=== PATIENT | male | born 1980 | race Caucasian/White ===

== ENCOUNTER 2017-05-15 00:19 | Emergency (ER) | payer OTHER ==
[2017-05-15 00:35] VITALS: RESP 18; TEMP 99.4
[2017-05-15] MEDS ORDERED: DIPH,PERTUS(ACELL)TETVAC-LF 0.5 ML VIAL IM ONE (01:00)
[2017-05-15] MEDS ORDERED: GELATIN SPONGE,ABSORB (SMALL) 1 EACH SPONGE TOPICAL STA (01:23)
--- NOTE | 2017-05-15 01:38 | XR ---
EXAMINATION TYPE: XR tibia fibula bilateral DATE OF EXAM: 05/15/2017 COMPARISON: NONE HISTORY: Pain TECHNIQUE: 4 views FINDINGS: I see no fracture nor dislocation. Knee joint and ankle joint appear intact. Soft tissues a ppear normal. IMPRESSION: Negative bilateral tibia and fibula exam.
--- NOTE | 2017-05-15 01:40 | XR ---
EXAMINATION TYPE: XR hand complete RT DATE OF EXAM: 05/15/2017 COMPARISON: NONE HISTORY: Pain TECHNIQUE: 3 views FINDINGS: Metacarpals appear intact. I see no fracture nor dislocation. Joint spaces are normal. IMPRESSION: There is some soft tissue swelling and deformity around the end of the middle finger. No fracture seen.
[2017-05-15] MEDS ORDERED: ACET/COD 300 MG/30 MG STARTER PACK 6 TAB BTL PO STA (02:17)
--- NOTE | 2017-05-15 02:18 | ED ---
Wound/Laceration HPI - General Chief Complaint: Wound/Laceration Stated Complaint: IHS-finger lac, leg pain Time Seen by Provider: 05/15/17 00:39 Source: patient, RN notes reviewed, old records reviewed Mode of arrival: wheelchair Limitations: no limitations - History of Present Illness Initial Comments: 6-year-old male presents emergency Department chief complaint of right middle finger laceration, lacerations over the fourth and fifth digit, as well as bilateral leg pain. Patient reports that he was at work, working with a high low. 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 Patient reports he is trying to adjust it. He states that it fell off, his hand got caught, and a bounced onto his lower legs. He reports he has pain over bilateral shins. Denies any inability to walk. He reports he does have severe pain, and some abrasions over her ross. Patient reports that he has normal range of motion of his feet and ankles and toes. Denies any numbness or tingling in the toes, or cold sensation. Patient reports he said no previous fractures or injuries to the leg or hand. He is left-handed. Patient states that he could not get the bleeding to stop over his right middle finger. He does not know the last time he had tetanus shot. - Related Data Previous Rx's Medication Instructions Recorded traMADol HCl [Ultram] 50 mg PO Q6H PRN #10 tab 05/15/17 Allergies Allergy/AdvReac Type Severity Reaction Status Date / Time No Known Allergies Allergy Verified 05/15/17 00:35 Review of Systems ROS Statement: Those systems with pertinent positive or pertinent negative responses have been documented in the HPI. ROS Other: All systems not noted in ROS Statement are negative. Past Medical History Past Medical History: Hyperlipidemia Additional Past Medical History / Comment(s): hydrocephalis History of Any Multi-Drug Resistant Organisms: None Reported Additional Past Surgical History / Comment(s): vp talent management shunt Past Psychological History: Depression Smoking Status: Never smoker Past Alcohol Use History: None Reported Past Drug Use History: None Reported General Exam - General Exam Comments Initial Comments: 36-year-old male. No distress. Limitations: no limitations General appearance: alert, in no apparent distress Head exam: Present: atraumatic, normocephalic, normal inspection Eye exam: Present: normal appearance, PERRL, EOMI. Absent: scleral icterus, conjunctival injection, periorbital swelling ENT exam: Present: normal exam, mucous membranes moist Neck exam: Present: normal inspection. Absent: tenderness, meningismus, lymphadenopathy Respiratory exam: Present: normal lung sounds bilaterally. Absent: respiratory distress, wheezes, rales, rhonchi, stridor Cardiovascular Exam: Present: regular rate, normal rhythm, normal heart sounds. Absent: systolic murmur, diastolic murmur, rubs, gallop, clicks GI/Abdominal exam: Present: soft, normal bowel sounds. Absent: distended, tenderness, guarding, rebound, rigid Extremities exam: Present: normal inspection, full ROM, normal capillary refill , other (Bilateral shins have abrasions. Normal dorsalis pedis and posterior tibial pulse. Normal range of motion in the foot and ankle and toes. Both legs are warm to touch, no pallor or coldness.). Absent: tenderness, pedal edema, joint swelling, calf tenderness Right Elbow exam: Present: normal inspection, full ROM Forearm Wrist exam: Present: normal inspection, full ROM Hand Wrist exam: Present: full ROM, laceration (1 cm laceration over the distal third digit. Also 2 superficial abrasions over the fourth and fifth digits. Bleeding well controlled.). Absent: normal inspection (Patient has a laceration over the distal tip of the middle finger. Laceration measures proximally 1 cm. He did cut a small artery, is continue to leak blood.), tenderness, swelling, abrasion Hand L/R Front: 1 - laceration (1 cm laceration.) 2 - abrasion 3 - abrasion Neuro motor exam: Present: wrist extension intact, thumb opposition intact Back exam: Present: normal inspection Neurological exam: Present: alert, oriented X3, CN II-XII intact Psychiatric exam: Present: normal affect, normal mood Course Vital Signs 05/15/17 05/15/17 00:31 02:31 Temperature 99.4 F Pulse Rate 94 89 Respiratory 18 18 Rate Blood Pressure 171/95 170/86 O2 Sat by Pulse 97 100 Oximetry Procedures - Laceration Laceration #1 Site: hand (right middle finger) Size (cm): 1 Description: linear Depth: simple, single layer Anesthetic Used: lidocaine 1% Anesthesia Technique: nerve block Amount (mls): 3 Pre-repair: wound explored, irrigated extensively Type of Sutures: nylon Size of Sutures: 6-0 Number of Sutures: 5 Technique: simple, interrupted Patient Tolerated Procedure: well, no complications Medical Decision Making - Medical Decision Making 36-year-old male presents emergency Department with right middle finger laceration, bilateral lower leg pain. 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 Patient does not know the last time he had his tetanus. He was updated today. Laceration measures approximately 1 cm. There appear to be a small artery that was cut. Patient has full range of motion of all finger. Normal sensation distally. Wound was irrigated with normal saline. Wound was closed with 5 sutures, and Gelfoam applied. The bleeding is well-controlled at this time. Bilateral tib-fib x-ray show no evidence of any fracture. He has normal range of motion and ankles. No pulselessness. Patient will likely has a contusion over bilateral shins due to the heavy material landing there. Patient will be discharged at this time with suture care instructions, as well as a short course of pain medication for his leg pain and hand pain. Hand x-ray shows no fractures well. Patient will be discharged at this time with close follow-up with PCP. Patient nurse's treatment plan will comply. Return parameters were discussed. - Radiology Data Radiology results: report reviewed Bilateral tib-fib x-rays show no evidence of any fracture. Hand x-ray shows evidence of soft tissue swelling over the middle digit. No evidence of fracture. Disposition Clinical Impression: Laceration of right middle finger, Bilateral leg pain Disposition: HOME SELF-CARE Condition: Good Instructions: Contusion in Adults (ED), Finger Laceration (ED) Additional Instructions: Please return to the emergency room in 8-10 days to have sutures removed. Please leave wound covered for the first 24-48 hours and then leave open to air after that time. Please use clean soap and water to clean the suture area to prevent scabbing over the top of your sutures. Patient should keep the laceration covered if you're doing any work with her hands. Please watch for any signs of infection which may include but not limited to increased pain, swelling, redness, fever or chills. Please return to the emergency room if any signs of infection do occur. Please return to the emergency room for any other concerns or complications. Prescriptions: traMADol HCl [Ultram] 50 mg PO Q6H PRN #10 tab PRN Reason: Pain Referrals: Abdon Montes De Oca DO [Primary Care Provider] - 1-2 days Time of Disposition: 02:17
[2017-05-15 02:32] VITALS: BP 170/86; PULSE 89
== END 2017-05-15 02:34 | disposition home or self-care (01) ==
LOC: EC 00:19
DX: S61.212A Laceration without foreign body of right middle finger without damage to nail, initial encounter (principal); Z23 Encounter for immunization; W20.8XXA Other cause of strike by thrown, projected or falling object, initial encounter; Y99.0 Civilian activity done for income or pay
CPT/HCPCS: 12001; 90471; 90715; 99283

== ENCOUNTER 2019-02-06 19:14 | Emergency (ER) | payer OTHER ==
[2019-02-06 19:20] VITALS: BP 157/96; PULSE 87; RESP 20; TEMP 99.2
[2019-02-06] MEDS ORDERED: MORPHINE SULFATE 4 MG/ML SYRINGE IVP STA (19:32)
--- NOTE | 2019-02-06 19:36 | ED ---
General Adult HPI - General Chief complaint: Urogenital Stated complaint: Urogenital Time Seen by Provider: 02/06/19 19:27 Source: patient, family Mode of arrival: ambulatory Limitations: no limitations - History of Present Illness Initial comments: Dictation was produced using [employer] dictation software. please excuse any grammatical, word or spelling errors. Chief Complaint: 38-year-old male sent in from urgent care for testicular pain. History of Present Illness: [age]-year-old male he's had 3 days of testicular pain. Patient states his pain is absent at rest and worse especially with manipulation around the right testicle. Patient had this pain for approximately 3 days. He states the pain began spontaneously. He complains of point tenderness over the superior posterior portion of the right testicle. Patient has any pain while at rest. He went to the urgent care today and was sent immediately to the emergency department for concerns of testicular torsion. Patient had a vasectomy performed in November of this year. He explains that there was difficulty with doing a vasectomy procedure. The ROS documented in this emergency department record has been reviewed and confirmed by me. Those systems with pertinent positive or negative responses have been documented in the HPI. All other systems are other negative and/or noncontributory. PHYSICAL EXAM: General Impression: Alert and oriented x3, not in acute distress HEENT: Normocephalic atraumatic, extra-ocular movements intact, pupils equal and reactive to light bilaterally, mucous membranes moist. Cardiovascular: Heart regular rate and rhythm, S1&S2 audible, no murmurs, rubs or gallops Chest: Lungs clear to auscultation bilaterally, no rhonchi, no wheeze, no rales Abdomen: Bowel sounds present, abdomen soft, non-tender, non-distended, no organ omegaly Musculoskeletal: Pulses present and equal in all extremities, no peripheral edema Motor: no focal deficits noted Neurological: CN II-XII grossly intact, no focal motor or sensory deficits noted Skin: Intact with no visualized rashes Psych: Normal affect and mood : Scrotal exam is unremarkable. There is tenderness to palpation in the groin/superior testicular area. ED course: 38-year-old male presents with testicular versus right groin pain. On arrival are unremarkable.Lab return evaluation obtained. Mild leukocytosis of 11.4, metabolic panel is unremarkable. Urinalysis is negative. Scrotal ultrasound was obtained showing magical blood flow to both testicles. There is a finding of a right epididymal cyst that measures 2.[address] of the abdomen and pelvis was obtained to rule out inguinal hernia. CT abdomen and pelvis is negative. Patient is well-appearing at bedside. Clinical presentation is not consistent with testicular torsion given that his pain is only with palpation and certain area. He is well-appearing. Patient told to follow-up with his urologist upon discharge. Patient understandable agreeable to plan. Return parameters discussed. - Related Data Home Medications Medication Instructions Recorded Confirmed No Known Home Medications 02/06/19 02/06/19 Allergies Allergy/AdvReac Type Severity Reaction Status Date / Time No Known Allergies Allergy Verified 02/06/19 19:37 Review of Systems ROS Statement: Those systems with pertinent positive or pertinent negative responses have been documented in the HPI. ROS Other: All systems not noted in ROS Statement are negative. Past Medical History Past Medical History: Hyperlipidemia Additional Past Medical History / Comment(s): hydrocephalis History of Any Multi-Drug Resistant Organisms: None Reported Additional Past Surgical History / Comment(s): evp shunt, vasectomy November 2018 Past Psychological History: Depression Smoking Status: Never smoker Past Alcohol Use History: None Reported Past Drug Use History: None Reported General Exam Limitations: no limitations Course Vital Signs 02/06/19 19:16 Temperature 99.2 F Pulse Rate 87 Respiratory 20 Rate Blood Pressure 157/96 O2 Sat by Pulse 97 Oximetry Medical Decision Making - Lab Data Result diagrams: 02/06/19 19:40 02/06/19 19:40 Lab Results 02/06/19 02/06/19 02/06/19 Range/Units 19:40 19:40 19:40 WBC 11.4 H (3.8-10.6) k/uL RBC 5.77 (4.30-5.90) m/uL Hgb 15.9 (13.0-17.5) gm/dL Hct 48.1 (39.0-53.0) % MCV 83.3 (80.0-100.0) fL MCH 27.6 (25.0-35.0) pg MCHC 33.1 (31.0-37.0) g/dL RDW 15.4 (11.5-15.5) % Plt Count 305 (150-450) k/uL Neutrophils % 68 % Lymphocytes % 20 % Monocytes % 6 % Eosinophils % 4 % Basophils % 1 % Neutrophils # 7.8 H (1.3-7.7) k/uL Lymphocytes # 2.2 (1.0-4.8) k/uL Monocytes # 0.6 (0-1.0) k/uL Eosinophils # 0.5 (0-0.7) k/uL Basophils # 0.1 (0-0.2) k/uL Sodium 139 (137-145) mmol/L Potassium 4.4 (3.5-5.1) mmol/L Chloride 106 (98-107) mmol/L Carbon Dioxide 23 (22-30) mmol/L Anion Gap 10 mmol/L BUN 17 (9-20) mg/dL Creatinine 1.16 (0.66-1.25) mg/dL Est GFR (CKD-EPI)AfAm >90 (>60 ml/min/1.73 sqM) Est GFR (CKD-EPI)NonAf 80 (>60 ml/min/1.73 sqM) Glucose 113 H (74-99) mg/dL Calcium 9.4 (8.4-10.2) mg/dL Urine Color Yellow Urine Appearance Clear (Clear) Urine pH 5.5 (5.0-8.0) Ur Specific [place] 1.023 (1.001-1.035) Urine Protein Trace H (Negative) Urine Glucose (UA) Negative (Negative) Urine Ketones Negative (Negative) Urine Blood Negative (Negative) Urine Nitrite Negative (Negative) Urine Bilirubin Negative (Negative) Urine Urobilinogen <2.0 (<2.0) mg/dL Ur Leukocyte Esterase Negative (Negative) Disposition Clinical Impression: Scrotal pain Disposition: HOME SELF-CARE Condition: Good Instructions (If sedation given, give patient instructions): Scrotal Pain (ED) Additional Instructions: you have a 2.3 cm epididymal cyst on the right testicle Is patient prescribed a controlled substance at d/c from ED?: No Referrals: Joey Braga MD [STAFF PHYSICIAN] - 1-2 days Time of Disposition: 22:08
[2019-02-06 19:54] LABS: Appearance,Urine Clear (Clear); Basophils # (A) 0.1 k/uL (0-0.2); Basophils % (A) 1 %; Bilirubin,Urine Negative (Negative); Blood,Urine Negative (Negative); Color,Urine Yellow; Eosinophils # (A) 0.5 k/uL (0-0.7); Eosinophils % (A) 4 %; Glucose,Urine (UA) Negative (Negative); HCT 48.1 % (39.0-53.0); HGB 15.9 gm/dL (13.0-17.5); Ketones,Urine Negative (Negative); Leukocyte Esterase,Urine Negative (Negative); Lymphocytes # (A) 2.2 k/uL (1.0-4.8); Lymphocytes % (A) 20 %; MCH 27.6 pg (25.0-35.0); MCHC 33.1 g/dL (31.0-37.0); MCV 83.3 fL (80.0-100.0); Mean Platelet Volume 7.7; Monocytes # (A) 0.6 k/uL (0-1.0); Monocytes % (A) 6 %; Neutrophils # (A) 7.8 k/uL (1.3-7.7); Neutrophils % (A) 68 %; Nitrite,Urine Negative (Negative); PH, Urine 5.5 (5.0-8.0); Platelet Count 305 k/uL (150-450); Protein,Urine Trace (Negative); RBC 5.77 m/uL (4.30-5.90); RDW 15.4 % (11.5-15.5); Specific Gravity,Urine 1.023 (1.001-1.035); Urobilinogen,Urine <2.0 mg/dL (<2.0); WBC 11.4 k/uL (3.8-10.6)
[2019-02-06 20:05] LABS: African American GFR (CKD) >90 (>60 ml/min/1.73 sqM); Anion Gap 10 mmol/L; Blood Urea Nitrogen 17 mg/dL (9-20); Calcium 9.4 mg/dL (8.4-10.2); Carbon Dioxide 23 mmol/L (22-30); Chloride 106 mmol/L (98-107); Glucose 113 mg/dL (74-99); Potassium 4.4 mmol/L (3.5-5.1); Sodium 139 mmol/L (137-145)
--- NOTE | 2019-02-06 21:07 | US ---
EXAMINATION TYPE: US scrotum with doppler. Grayscale and color Doppler Duplex imaging performed of t he scrotum. DATE OF EXAM: 02/06/2019 COMPARISON: NONE CLINICAL HISTORY: Pain. Patient states having vasectomy in November 2018. Pain x 3 days getting worse. N o swelling. EXAM MEASUREMENTS: TESTICLES: Right Testicle: 4.3 x 3.9 x 2.2 cm Left Testicle: 4.2 x 3.4 x 2.7 cm EPIDIDYMIS HEAD: Right Epididymis: 1.7 x 2.3 x 1.0 cm Left Epididymis: 0.8 x 0.7 x 0.6 cm Doppler performed to assess for testicular vascularity; good bilateral color flow and waveforms are s een. Presence of hydroceles: no Presence of varicoceles: no Right epididymal cystic appearing lesion visualized = 1.5 x 2.4 x 1.3 cm. Right epididymis appears en larged and echogenic. In bilateral testes, bilateral nonshadowing echogenic foci seen. In left inguinal region, possible hernia visualized. Some scattered calcifications throughout both testicles consistent with microlithiasis. Estimated 10- 20 lesions throughout both testicles. Towards the end of study comparison view shows fairly symmetric blood flow to both testicles. IMPRESSION: Symmetric blood flow to both testicles. Incidental enlarged right epididymis with 2.3 cm thin-walled epididymal cyst.
--- NOTE | 2019-02-06 21:59 | CT ---
EXAMINATION TYPE: CT abdomen pelvis w con DATE OF EXAM: 02/06/2019 COMPARISON: None. HISTORY: groin and testicular pain. History of recent vasectomy November 23, 2018 CT DLP: 1676.2 mGycm, Automated Exposure Control for Dose Reduction was Utilized. CONTRAST: CT scan of the abdomen and pelvis is performed without oral but with IV Contrast, patient injected wi th 100 mL of Isovue 300. FINDINGS: LUNG BASES: No significant abnormality is appreciated. LIVER/GB: No significant abnormality is appreciated. PANCREAS: No significant abnormality is seen. SPLEEN: No significant abnormality is seen. ADRENALS: No significant abnormality is seen. KIDNEYS: Asymmetric right renal volume loss with cortical thinning and lobulation. Symmetric cortical medullary uptake and excretion is present without hydronephrosis seen bilaterally. BOWEL: No significant abnormality is seen. PROSTATE/SEMINAL VESICLES: Prostate gland upper limits of normal in size. On the left. Slightly bulky . LYMPH NODES: No greater than 1cm abdominal or pelvic lymph nodes are appreciated. OSSEOUS STRUCTURES: No significant abnormality is seen. OTHER: Partial visualization of right-sided presumed OCEAN LIFEGUARD shunt catheter terminating anteriorly in the right lower quadrant. IMPRESSION: No significant acute finding is seen to account for patient's clinical symptoms.
== END 2019-02-06 22:24 | disposition home or self-care (01) ==
LOC: EC 19:14
DX: N50.82 Scrotal pain (principal); N50.811 Right testicular pain; D72.829 Elevated white blood cell count, unspecified; G91.9 Hydrocephalus, unspecified; Z98.2 Presence of cerebrospinal fluid drainage device
CPT/HCPCS: 36415; 80048; 85025; 81003; 93975; 76870; 74177; 99284; 96374; J2270; Q9967

== ENCOUNTER 2020-04-26 07:18 | Emergency (ER) | payer OTHER ==
[2020-04-26] MEDS ORDERED: SODIUM CHLORIDE 0.9% 1,000 ML IV STA (07:34)
--- NOTE | 2020-04-26 07:43 | ED ---
Abdominal Pain HPI - General Chief Complaint: Abdominal Pain Stated Complaint: Abdominal Pain Time Seen by Provider: 04/26/20 07:21 Source: patient, EMS, RN notes reviewed Mode of arrival: EMS Limitations: no limitations - History of Present Illness Initial Comments: 39-year-old male presents emergency Department chief complaint of abdominal discomfort, nausea vomiting diarrhea. Patient states he does not feel well is morning states that he started vomiting having diarrhea. Patient states he very diaphoretic states that he felt short breath. Patient states that he attempted to leave work as he is instructed go home. Patient states that he felt worse was unable to drive home continuously called family. Family called EMS. Patient states she's actually improving at this time is no point chest pain or shortness of breath. Patient states that he has no history of GI disorder. Patient denies any fevers chills. Patient denies any dysuria no melena hematochezia. Patient offers no other complaints. - Related Data Home Medications Medication Instructions Recorded Confirmed Atorvastatin Calcium [Lipitor] 20 mg PO DAILY 04/26/20 04/26/20 Vit C/E/Zn/Coppr/Lutein/Zeaxan 1 cap PO BID 04/26/20 04/26/20 [Preservision Areds 2 Softgel] Previous Rx's Medication Instructions Recorded Dicyclomine [Bentyl] 20 mg PO TID #30 tablet 04/26/20 Ondansetron Odt [Zofran Odt] 4 mg PO Q8HR PRN #10 tab 04/26/20 Allergies Allergy/AdvReac Type Severity Reaction Status Date / Time No Known Allergies Allergy Verified 04/26/20 08:15 Review of Systems ROS Statement: Those systems with pertinent positive or pertinent negative responses have been documented in the HPI. ROS Other: All systems not noted in ROS Statement are negative. Past Medical History Past Medical History: Hyperlipidemia Additional Past Medical History / Comment(s): hydrocephalis History of Any Multi-Drug Resistant Organisms: None Reported Additional Past Surgical History / Comment(s): [employer] shunt, vasectomy November 2018 Past Psychological History: Depression Smoking Status: Never smoker Past Alcohol Use History: None Reported Past Drug Use History: None Reported General Exam Limitations: no limitations General appearance: alert, in no apparent distress Head exam: Present: atraumatic, normocephalic, normal inspection Eye exam: Present: normal appearance, PERRL, EOMI. Absent: scleral icterus, conjunctival injection, periorbital swelling ENT exam: Present: normal exam, normal oropharynx, mucous membranes moist Neck exam: Present: normal inspection, full ROM. Absent: tenderness, meningismus, lymphadenopathy Respiratory exam: Present: normal lung sounds bilaterally. Absent: respiratory distress, wheezes, rales, rhonchi, stridor Cardiovascular Exam: Present: regular rate, normal rhythm, normal heart sounds. Absent: systolic murmur, diastolic murmur, rubs, gallop, clicks GI/Abdominal exam: Present: soft, tenderness (Mild lower), normal bowel sounds. Absent: distended, guarding, rebound, rigid Back exam: Absent: CVA tenderness (R), CVA tenderness (L) Neurological exam: Present: alert, oriented X3 Skin exam: Present: warm, dry, intact, normal color. Absent: rash Course Vital Signs 04/26/20 04/26/20 07:24 08:54 Temperature 98.0 F 98.0 F Pulse Rate 85 84 Respiratory 16 14 Rate Blood Pressure 133/84 143/88 O2 Sat by Pulse 98 98 Oximetry Medical Decision Making - Medical Decision Making 39-year-old male presented for nausea vomiting. Patient has gastroenteritis labs reveal mild acidosis sole no localized abdominal pain. Patient was hydrated given antiemetics feels improved. Patient we discharged in stable condition. - Lab Data Result diagrams: 04/26/20 07:31 04/26/20 07:31 Lab Results 04/26/20 04/26/20 04/26/20 Range/Units 07:31 07:31 07:31 WBC 17.9 H (3.8-10.6) k/uL RBC 5.84 (4.30-5.90) m/uL Hgb 16.3 (13.0-17.5) gm/dL Hct 50.0 (39.0-53.0) % MCV 85.6 (80.0-100.0) fL MCH 28.0 (25.0-35.0) pg MCHC 32.7 (31.0-37.0) g/dL RDW 13.3 (11.5-15.5) % Plt Count 349 (150-450) k/uL Neutrophils % 88 % Lymphocytes % 6 % Monocytes % 4 % Eosinophils % 1 % Basophils % 0 % Neutrophils # 15.8 H (1.3-7.7) k/uL Lymphocytes # 1.1 (1.0-4.8) k/uL Monocytes # 0.8 (0-1.0) k/uL Eosinophils # 0.1 (0-0.7) k/uL Basophils # 0.1 (0-0.2) k/uL Sodium 140 (137-145) mmol/L Potassium 4.4 (3.5-5.1) mmol/L Chloride 106 (98-107) mmol/L Carbon Dioxide 26 (22-30) mmol/L Anion Gap 8 mmol/L BUN 16 (9-20) mg/dL Creatinine 1.00 (0.66-1.25) mg/dL Est GFR (CKD-EPI)AfAm >90 (>60 ml/min/1.73 sqM) Est GFR (CKD-EPI)NonAf >90 (>60 ml/min/1.73 sqM) Glucose 77 (74-99) mg/dL Calcium 9.1 (8.4-10.2) mg/dL Total Bilirubin 0.7 (0.2-1.3) mg/dL AST 23 (17-59) U/L ALT 23 (4-49) U/L Alkaline Phosphatase 97 (38-126) U/L Total Protein 7.0 (6.3-8.2) g/dL Albumin 3.9 (3.5-5.0) g/dL Lipase 88 (23-300) U/L Urine Color Light Yellow Urine Appearance Clear (Clear) Urine pH 7.0 (5.0-8.0) Ur Specific [place] 1.014 (1.001-1.035) Urine Protein 3+ H (Negative) Urine Glucose (UA) Negative (Negative) Urine Ketones 1+ H (Negative) Urine Blood Negative (Negative) Urine Nitrite Negative (Negative) Urine Bilirubin Negative (Negative) Urine Urobilinogen <2.0 (<2.0) mg/dL Ur Leukocyte Esterase Negative (Negative) Urine WBC 1 (0-5) /hpf Urine Mucus Rare H (None) /hpf - EKG Data -: EKG Interpreted by Me EKG Comments: EKG fullness 7:37 normal sinus rhythm rate of 77 OR 176 QRS 82 QTC is QTC 372/420 Disposition Clinical Impression: Gastroenteritis Disposition: HOME SELF-CARE Condition: Stable Instructions (If sedation given, give patient instructions): Gastroenteritis (ED) Additional Instructions: Please return to the Emergency Department if symptoms worsen or any other concerns. Prescriptions: Dicyclomine [Bentyl] 20 mg PO TID #30 tablet Ondansetron Odt [Zofran Odt] 4 mg PO Q8HR PRN #10 tab PRN Reason: Nausea Is patient prescribed a controlled substance at d/c from ED?: No Referrals: Abdon Montes De Oca DO [Primary Care Provider] - 1-2 days Time of Disposition: 09:12
[2020-04-26 08:31] LABS: Basophils # (A) 0.1 k/uL (0-0.2); Basophils % (A) 0 %; Eosinophils # (A) 0.1 k/uL (0-0.7); Eosinophils % (A) 1 %; HGB 16.3 gm/dL (13.0-17.5); Lymphocytes # (A) 1.1 k/uL (1.0-4.8); Lymphocytes % (A) 6 %; MCHC 32.7 g/dL (31.0-37.0); MCV 85.6 fL (80.0-100.0); Mean Platelet Volume 8.1; Monocytes # (A) 0.8 k/uL (0-1.0); Monocytes % (A) 4 %; Neutrophils # (A) 15.8 k/uL (1.3-7.7); Neutrophils % (A) 88 %; Platelet Count 349 k/uL (150-450); RBC 5.84 m/uL (4.30-5.90); RDW 13.3 % (11.5-15.5); WBC 17.9 k/uL (3.8-10.6)
[2020-04-26 08:36] LABS: Appearance,Urine Clear (Clear); Bilirubin,Urine Negative (Negative); Blood,Urine Negative (Negative); Color,Urine Light Yellow; Glucose,Urine (UA) Negative (Negative); Ketones,Urine 1+ (Negative); Leukocyte Esterase,Urine Negative (Negative); Mucus,Urine Rare /hpf; Nitrite,Urine Negative (Negative); Protein,Urine 3+ (Negative); Specific Gravity,Urine 1.014 (1.001-1.035); Urobilinogen,Urine <2.0 mg/dL (<2.0); WBC,Urine 1 /hpf (0-5)
[2020-04-26] MEDS ORDERED: ONDANSETRON 4 MG/2 ML VIAL IVP STA (08:43)
[2020-04-26] MEDS ORDERED: DICYCLOMINE 10 MG/ML 2 ML AMP IM STA (08:43)
[2020-04-26 08:44] LABS: ALT 23 U/L (4-49); AST 23 U/L (17-59); African American GFR (CKD) >90 (>60 ml/min/1.73 sqM); Albumin 3.9 g/dL (3.5-5.0); Alkaline Phosphatase 97 U/L (38-126); Anion Gap 8 mmol/L; Blood Urea Nitrogen 16 mg/dL (9-20); Calcium 9.1 mg/dL (8.4-10.2); Carbon Dioxide 26 mmol/L (22-30); Chloride 106 mmol/L (98-107); Glucose 77 mg/dL (74-99); Non-African American GFR(CKD) >90 (>60 ml/min/1.73 sqM); Potassium 4.4 mmol/L (3.5-5.1); Sodium 140 mmol/L (137-145); Total Bilirubin 0.7 mg/dL (0.2-1.3)
[2020-04-26 09:36] VITALS: BP 143/84; PULSE 77; RESP 16; TEMP 98.1
== END 2020-04-26 09:36 | disposition home or self-care (01) ==
LOC: EC 07:18
DX: K52.9 Noninfective gastroenteritis and colitis, unspecified (principal); E87.2 Acidosis; E78.5 Hyperlipidemia, unspecified; Z79.899 Other long term (current) drug therapy; Z98.2 Presence of cerebrospinal fluid drainage device
CPT/HCPCS: 36415; 93005; 80053; 83690; 85025; 81001; 99284; 96374; 96361; 96372; J0500; J2405

== ENCOUNTER → 2021-08-30 | Outpatient (CLI) | payer OTHER ==
--- NOTE | 2021-08-31 01:45 | CT ---
EXAMINATION TYPE: CT brain wo con DATE OF EXAM: 08/30/2021 COMPARISON: None available HISTORY: headaches, hx of [address] DLP: 1090.4 mGycm Automated exposure control for dose reduction was used. TECHNIQUE: CT scan of the brain is performed without IV contrast administration. FINDINGS: Right anterior parietal shunt tube likely representing a RESERVATIONS SPECIALIST shunt. The tip is seen traversing the ant erior horn of the right lateral ventricle and possibly reaching the anterior horn of the left lateral ventricle. Slitlike lateral ventricles as well as the third ventricle with slightly small fourth sahara tricle. No intracranial hemorrhage or gross acute cortical infarct. No midline shift or herniation unremarkab le basal cisterns, sella and CP angles. No gross space-occupying lesion, vasogenic edema or mass effe ct. Slightly hyperdense intracranial vessels, possibly related to the hemodynamic status of the patient. Unremarkable orbits. Large maxillary sinus polyp/retention cyst measuring up to 2.7 cm. Opacified rig ht mastoid cells and middle ear cavity which may suggest right otomastoiditis, please correlate clini anselmo. No aggressive bone lesion. IMPRESSION: Ventriculostomy tube as described above likely representing a RESERVATIONS SPECIALIST shunt. Slitlike ventricles which can be seen in cases of chronic overdrainage. Recommend correlation with previous unavailable images as well as clinical correlation to rule out slit-ventricle syndrome. Other incidental findings as descri bed above.
--- NOTE | 2021-08-31 10:26 | XR ---
EXAMINATION TYPE: XR chest 1V, XR abdomen 1V, XR skull limited DATE OF EXAM: 08/30/2021 COMPARISON: CT brain 08/30/2021 HISTORY: Q03.9, R 51.9 TECHNIQUE: Single frontal view of the chest is obtained, frontal and lateral skull views, frontal vie w the abdomen submitted as shunt series. FINDINGS: There is no focal air space opacity, pleural effusion, or pneumothorax seen. The cardiac silhouette size is within normal limits. The osseous structures are intact. The shunt courses along the right neck, right calvarium, chest and abdomen and is intact. Inflammator y changes are present incidentally within the right maxillary sinus. Tip of the catheter courses joseph g the right hemiabdomen to the level of the lateral margin of the liver. No evident bowel obstruction . IMPRESSION: Sinus disease. Shunt tubing appears intact.
== END | disposition home or self-care (01) ==
LOC: RADCTMAIN 15:44
PROVIDERS: ATTEND Neurological Surgery
DX: J33.8 Other polyp of sinus (principal)
CPT/HCPCS: 70250; 70450; 71045; 74018

== ENCOUNTER 2022-10-24 18:50 | Inpatient (IN) | payer OTHER ==
[2022-10-24] MEDS ORDERED: HEPARIN SODIUM 1,000 UN/ML (10ML VL) IV ONE (18:53)
[2022-10-24] MEDS ORDERED: NITROGLYCERIN OINT 1 INCH/GM PACKET TOPICAL STA (18:53)
--- NOTE | 2022-10-24 19:05 | ED ---
General Adult HPI - General Stated complaint: STEMI Time Seen by Provider: 10/24/22 18:50 Source: patient, RN notes reviewed, old records reviewed - History of Present Illness Initial comments: This is a 42-year-old male with past medical history significant for high cholesterol strong family history for heart disease. Patient's father had a heart attack when he was in his 30s. Patient started having chest pain today that radiated down his left arm at 4:00 this afternoon. Patient also states he was short of breath. Patient denies any diaphoretic episodes. Patient denies any nausea. Patient denies any abdominal pain patient denies lightheadedness or dizziness. Patient did get relief from the first nitroglycerin but none after. Patient did receive aspirin. - Related Data Home Medications Medication Instructions Recorded Confirmed Atorvastatin Calcium [Lipitor] 20 mg PO DAILY 04/26/20 04/26/20 Allergies Allergy/AdvReac Type Severity Reaction Status Date / Time No Known Allergies Allergy Verified 10/24/22 19:07 Review of Systems ROS Statement: Those systems with pertinent positive or pertinent negative responses have been documented in the HPI. ROS Other: All systems not noted in ROS Statement are negative. Past Medical History Past Medical History: Hyperlipidemia Additional Past Medical History / Comment(s): hydrocephalis History of Any Multi-Drug Resistant Organisms: None Reported Additional Past Surgical History / Comment(s): vp construction shunt, vasectomy November 2018 Past Psychological History: Depression Smoking Status: Never smoker Past Alcohol Use History: None Reported Past Drug Use History: None Reported General Exam - General Exam Comments Initial Comments: GENERAL: Patient is well-developed and well-nourished. Patient is nontoxic and well- hydrated and is in mild distress. ENT: Neck is soft and supple. No significant lymphadenopathy is noted. Oropharynx is clear. Moist mucous membranes. Neck has full range of motion without eliciting any pain. EYES: The sclera were anicteric and conjunctiva were pink and moist. Extraocular movements were intact and pupils were equal round and reactive to light. Eyelids were unremarkable. PULMONARY: Unlabored respirations. Good breath sounds bilaterally. No audible rales rhonchi or wheezing was noted. CARDIOVASCULAR: There is a regular rate and rhythm without any murmurs gallops or rubs. ABDOMEN: Soft and nontender with normal bowel sounds. SKIN: Skin is clear with no lesions or rashes and otherwise unremarkable. NEUROLOGIC: Patient is alert and oriented x3. Cranial nerves II through XII are grossly intact. Motor and sensory are also intact. Normal speech, volume and content. Symmetrical smile. MUSCULOSKELETAL: Normal extremities with adequate strength and full range of motion. No lower extremity swelling or edema. No calf tenderness. LYMPHATICS: No significant lymphadenopathy is noted PSYCHIATRIC: Normal psychiatric evaluation. Medical Decision Making - Medical Decision Making Was pt. sent in by a medical professional or institution (, TEJA, FACETOR, urgent care, hospital, or alf...) When possible be specific @ -No Did you speak to anyone other than the patient for history (EMS, parent, family, police, friend...)? What history was obtained from this source @ -EMS gave a history Did you review nursing and triage notes (agree or disagree)? Why? @ -I reviewed and agree with nursing and triage notes Were old charts reviewed (outside hosp., previous admission, EMS record, old EKG, old radiological studies, urgent care reports/EKG's, alf records)? Report findings @ -No old charts were reviewed Differential Diagnosis (chest pain, altered mental status, abdominal pain women, abdominal pain men, vaginal bleeding, weakness, fever, dyspnea, syncope, headache, dizziness, GI bleed, back pain, seizure, CVA, palpatations, mental health, musculoskeletal)? @ -Differential Chest Pain: Stable Angina, Unstable Angina, STEMI, NSTEMI Aortic Dissection, Pneumothorax, Musculoskeletal, Esophageal Spasm GERD, Cholecystitis, Pancreatitis, Zoster, this is not meant to be an all-inclusive list. EKG interpreted by me (3pts min.). @ -As above X-rays interpreted by me (1pt min.). @ -None done CT interpreted by me (1pt min.). @ -None done U/S interpreted by me (1pt. min.). @ -None done What testing was considered but not performed or refused? (CT, X-rays, U/S, labs)? Why? @ -None What meds were considered but not given or refused? Why? @ -None Did you discuss the management of the patient with other professionals (professionals i.e. TEJA Morin, FACETOR, lab, RT, psych nurse, social sciences lecturer, press bucker, teacher, juvenile officer, case mgr)? Give summary @ -I spoke with Dr. Falcon prior to the patient arriving because I had a EKG sent to me. Once the EKG was done here and I got speak to the patient I called back again. I STEMI was called overhead and the cath team was called in prior to the patient's arrival. Was smoking cessation discussed for >3mins.? @ -No Was critical care preformed (if so, how long)? @ -30 minutes Were there social determinants of health that impacted care today? How? (Homelessness, low income, unemployed, alcoholism, drug addiction, transportation, low edu. Level, literacy, decrease access to med. care, [facility] [facility], rehab)? @ -No Was there de-escalation of care discussed even if they declined (Discuss DNR or withdrawal of care, Hospice)? DNR status @ -No What co-morbidities impacted this encounter? (DM, HTN, Smoking, COPD, CAD, Cancer, CVA, ARF, Chemo, Hep., AIDS, mental health diagnosis, sleep apnea, morbid obesity)? @ -None Was patient admitted / discharged? Hospital course, mention meds given and route, prescriptions, significant lab abnormalities, going to OR and other pertinent info. @ -Patient's EKG showed a STEMI in the inferior leads with reciprocal changes in 1 and aVL. Patient's chest pain was considerably better than it was in route. Patient was given atrial paced her started on heparin and eventually sent him to the catheterization lab Undiagnosed new problem with uncertain prognosis? @ -No Drug Therapy requiring intensive monitoring for toxicity (Heparin, Nitro, Insulin, Cardizem)? @ -No Were any procedures done? @ -No Diagnosis/symptom? @ -STEMI Acute, or Chronic, or Acute on Chronic? @ -Acute Uncomplicated (without systemic symptoms) or Complicated (systemic symptoms)? @ -Complicated Side effects of treatment? @ -No Exacerbation, Progression, or Severe Exacerbation? @ -No Poses a threat to life or bodily function? How? (Chest pain, [place], [place], pneumonia, PE, COPD, DKA, ARF, appy, cholecystitis, CVA, Diverticulitis, Homicidal, Suicidal, threat to staff... and all critical care pts) @ -Yes this could lead to poor perfusion and end organ dysfunction Critical Care Time Critical Care Time: Yes Total Critical Care Time: 35 Disposition Clinical Impression: ST elevation myocardial infarction (STEMI) Disposition: ADMITTED IP TO THIS HOSP Referrals: None,Stated [REFERRING] - 1-2 days Time of Disposition: 19:10
[2022-10-24 19:18] LABS: Basophils # (A) 0.1 k/uL (0-0.2); Basophils % (A) 0 %; Eosinophils # (A) 0.2 k/uL (0-0.7); Eosinophils % (A) 1 %; HCT 44.7 % (39.0-53.0); HGB 15.4 gm/dL (13.0-17.5); Lymphocytes # (A) 3.2 k/uL (1.0-4.8); Lymphocytes % (A) 18 %; MCH 28.7 pg (25.0-35.0); MCHC 34.6 g/dL (31.0-37.0); Mean Platelet Volume 8.8; Monocytes # (A) 0.8 k/uL (0-1.0); Monocytes % (A) 5 %; Neutrophils # (A) 13.1 k/uL (1.3-7.7); Neutrophils % (A) 74 %; Platelet Count 424 k/uL (150-450); RBC 5.38 m/uL (4.30-5.90); WBC 17.6 k/uL (3.8-10.6)
[2022-10-24] MEDS ORDERED: LIDOCAINE 1% INJ 10MG/ML (20 ML MDV) ONE (19:18)
[2022-10-24] MEDS ORDERED: fentaNYL (PF) 50 MCG/ML 2 ML AMP ONE (19:18)
[2022-10-24] MEDS ORDERED: HEPARIN SODIUM 1,000 UN/ML (10ML VL) ONE (19:18)
[2022-10-24] MEDS ORDERED: fentaNYL (PF) 50 MCG/ML 2 ML AMP IV ONE (19:23)
[2022-10-24] MEDS ORDERED: LIDOCAINE 1% INJ 10MG/ML (20 ML MDV) SQ ONE (19:23)
[2022-10-24 19:24] LABS: ALT 34 U/L (4-49); AST 26 U/L (17-59); African American GFR (CKD) >90 (>60 ml/min/1.73 sqM); Albumin 4.3 g/dL (3.5-5.0); Alkaline Phosphatase 113 U/L (38-126); Anion Gap 12 mmol/L; Blood Urea Nitrogen 18 mg/dL (9-20); Calcium 9.1 mg/dL (8.4-10.2); Carbon Dioxide 21 mmol/L (22-30); Chloride 106 mmol/L (98-107); Glucose 164 mg/dL (74-99); Magnesium 2.1 mg/dL (1.6-2.3); Non-African American GFR(CKD) >90 (>60 ml/min/1.73 sqM); Potassium 4.2 mmol/L (3.5-5.1); Sodium 139 mmol/L (137-145); Total Bilirubin 0.7 mg/dL (0.2-1.3); Total Protein 7.6 g/dL (6.3-8.2)
[2022-10-24] MEDS ORDERED: PRASUGREL 10 MG TAB ONE (19:33)
[2022-10-24 19:34] LABS: Partial Thromboplastin Time 50.4 sec (22.0-30.0); Prothrombin Time 10.8 sec (9.0-12.0)
[2022-10-24] MEDS ORDERED: PRASUGREL 10 MG TAB PO ONE (19:36)
[2022-10-24] MEDS: HEPARIN SODIUM 1,000 UN/ML (10ML VL) IV ONE ×4 (19:36→20:20)
[2022-10-24] MEDS ORDERED: IV FLUID CONTINUATION 1,000 ML IV ONE (19:39)
[2022-10-24] MEDS ORDERED: MIDAZOLAM 2 MG/2 ML VIAL IV ONE (19:43)
[2022-10-24] MEDS ORDERED: NITROGLYCERIN 1000MCG/10ML SYRINGE INTRACORON ONE (19:52)
[2022-10-24] MEDS ORDERED: IOPAMIDOL-370 100ML BTL INJ ONE (20:13)
[2022-10-24] MEDS ORDERED: IOPAMIDOL-300 100ML BTL INJ ONE (20:14)
[2022-10-24] MEDS ORDERED: ATROPINE SULFATE 0.1 MG/ML 10ML SYRINGE IV PRN (20:23)
[2022-10-24] MEDS ORDERED: ZOLPIDEM 5 MG TAB PO PRN (20:23)
[2022-10-24] MEDS ORDERED: MAG HYDROX/AL HYDROX/SIMETH 30 ML CUP PO PRN (20:23)
[2022-10-24] MEDS ORDERED: NITROGLYCERIN SL TABS 0.4 MG TAB SUBLINGUAL PRN (20:23)
[2022-10-24] MEDS ORDERED: RX INFO: IV CONTRAST WAS GIVEN 1 EACH MISC MISCELLANE PRN (20:23)
[2022-10-24] MEDS ORDERED: SODIUM CHLORIDE 0.9% 1,000 ML in EMPTY BAG 1 BAG IV SCH (20:30)
--- NOTE | 2022-10-24 20:30 | P.CARDCATH ---
Date of Procedure: 10/24/22 Description of Procedure: PERCUTANEOUS TRANSLUMINAL CORONARY ANGIOPLASTY CLINICAL INFORMATION: The patient is a 42-year-old male with a known history of hyperlipidemia who presented with an acute inferior wall myocardial infarction. He underwent cardiac catheterization by Dr. Falcon and was found to have acutely occluded mid RCA . Recommendations were made regarding angioplasty and stenting. The procedure as well as the risks and the complications were discussed with the patient who was in full understanding and agreement. PROCEDURE: A 6 [place] FR4 guiding catheter was introduced into the system. After cannulating the right coronary ostium, a 0.014 BMW J was advanced across the lesion and positioned distally. Following that a 2.5 x 12 mm Treck balloon was advanced and inflated at 8 atmosphere. Following that a 3.25X 15 mm Xience muna point stent was deployed. It was dilated at 16 haven. After removing the balloon an IVUS [place] catheter was advanced and imaging was obtained. After removing the catheter a 4.0 x 12 mm NC Treck was advanced and one inflation at 10 haven was done. After the last inflation, after appropriate wait, the balloon and the guidewire were withdrawn back into the guiding catheter. Images were obtained and repeated. Those images reveal stable successful stenting. At that point, the guiding catheter, the balloon, and guidewire were removed. A 6- [place] pigtail catheter was introduced and LVEDP was measured. The sheath was removed. Hemostasis was obtained with deployment of an Angio-Seal. There were no immediate complications. The patient was returned to the room in stable condition. Of note, the patient received 10,500 units of heparin as well as Effient. His ACT was followed. There was no immediate complications. His chest discomfort improved and his EKG changes resolved RESULTS: Successful stenting of the mid RCA with reduction of stenosis from 100% to less than 5 % with intravascular ultrasound imaging. RECOMMENDATIONS: The patient will continue on aspirin and Effient for at least one year in addition to aggressive coronary risks modifications. The findings and recommendations were discussed with the patient and the family, they are in full understanding and agreement. Duration of sedation: 45 minutes
--- NOTE | 2022-10-24 20:59 | CC ---
CARDIAC CATHETERIZATION REPORT INDICATION: Acute inferior wall myocardial infarction. PROCEDURE NOTE: After obtaining informed consent, left heart catheterization and coronary angiogram were performed via the right femoral artery using right and left Heather catheters. The patient tolerated the procedure well without any obvious immediate complications. FINDINGS: 1. HEMODYNAMICS: Central aortic pressure is 160/80 mm. 2. LEFT VENTRICULOGRAM: Left ventriculogram is not performed. 3. ANGIOGRAPHIC DATA: a.Right coronary artery: Right coronary artery appears totally occluded in the proximal portion. b.Left main coronary artery is a normal-sized vessel and is free of stenosis. Divides into left anterior descending coronary artery and circumflex coronary artery. c.Circumflex coronary artery and its branches are free of significant stenosis. d.LAD shows mild nonobstructive disease involving the ostial portion of the diagonal branch. CONCLUSION: 100% occlusion of the proximal right coronary artery. PLAN: The patient will undergo angioplasty with stent placement of the same. MMODL / IJN: [id number] /
[2022-10-24 21:02] LABS: Glucose,Whole Blood 115 mg/dL (70-110)
--- NOTE | 2022-10-24 21:08 | CONS ---
CONSULTATION CHIEF COMPLAINT: Chest pain. HISTORY OF PRESENT ILLNESS: Ford is a 42-year-old gentleman with history of dyslipidemia and family history of coronary artery disease, who presented to hospital with sudden onset chest pain around 4 o'clock this evening. He described as a 10/10 intensity chest pain, was brought in as a STEMI, and STEMI alert was called in and I met the patient in the laboratory coordinator. The patient was still in pain. EKG showed acute ST-segment elevation. LABORATORY DATA: Labs are pending at this time. MEDICATIONS: Are as charted. ALLERGIES: None. FAMILY HISTORY: Significant for coronary artery disease in his mother. SOCIAL HISTORY: Negative for smoking, EtOH abuse or drug abuse. REVIEW OF SYSTEMS: 14 out of 14 review of systems has been performed. Pertinents are as documented. PHYSICAL EXAMINATION: GENERAL: Comfortable at rest. VITAL SIGNS: Heart rate is around 90 beats per minute. Blood pressure is 160/82, respiratory rate is 18. CHEST: Reveals diminished air entry at the bases. HEART: Reveals first and second heart sounds. No gallop. No murmur. ABDOMEN: Soft. EXTREMITIES: Did not reveal any edema. Peripheral pulses are felt. DIAGNOSTIC DATA: EKG shows acute inferior wall myocardial infarction. Labs are pending. ASSESSMENT: Acute inferior wall myocardial infarction. PLAN: The patient will undergo emergent cardiac catheterization, angioplasty. MMODL / IJN: [id number] /
[2022-10-24] MEDS: METOPROLOL TARTRATE 25 MG TAB PO SCH (21:21)
[2022-10-24] MEDS: ATORVASTATIN 80 MG TAB PO SCH (21:21)
[2022-10-25 04:15] LABS: African American GFR (CKD) >90 (>60 ml/min/1.73 sqM); Anion Gap 8 mmol/L; Blood Urea Nitrogen 15 mg/dL (9-20); Calcium 8.7 mg/dL (8.4-10.2); Carbon Dioxide 22 mmol/L (22-30); Chloride 107 mmol/L (98-107); Glucose 114 mg/dL (74-99); Non-African American GFR(CKD) >90 (>60 ml/min/1.73 sqM); Sodium 137 mmol/L (137-145)
--- NOTE | 2022-10-25 07:59 | P.PN ---
Subjective Progress Note Date: 10/25/22 PROGRESS NOTE The patient is a 42-year-old male who presented with an acute inferior wall myocardial infarction, was found to have a totally occluded right coronary artery, underwent stenting of that vessel. He's feeling well this morning. He denies any chest discomfort, dizziness or palpitations. Hemodynamically he is stable. He continues to be in sinus mechanism. His urinary output is stable. Medications: Aspirin, Lipitor 80 mg daily, metoprolol 25 mg twice a day, Effient 10 mg daily PHYSICAL EXAMINATION: Blood pressure 122/70 heart rate 90, obese LUNGS: Clear to auscultation HEART: Regular rate and rhythm, S1, S2. No S3. No systolic murmur ABDOMEN: Soft, nontender, no organomegaly EXTREMETIES: No edema, right groin no hematoma LAB: Potassium 4.0, BUN 15, creatinine 0.83. Troponin 49.8. EKG sinus mechanism with inferior wall myocardial infarction IMPRESSION: 1. Status post STEMI with inferior wall myocardial infarction, status post stenting of the RCA 2. History of hyperlipidemia 3. overweight PLAN: 1. Continue present therapy 2. Obtain an echocardiogram with Doppler 3. Increase activity 4. If stable this p.m., transfer to telemetry 5. Depending on his progress further recommendations will be made. Objective - Vital Signs Vital signs: Vital Signs Temp 97.5 F L 10/24/22 21:00 Pulse 93 10/25/22 07:00 Resp 17 10/25/22 07:00 BP 122/75 10/25/22 07:00 Pulse Ox 93 L 10/25/22 07:00 FiO2 Intake & Output 10/24/22 10/25/22 10/25/22 18:59 06:59 18:59 Intake Total 1020 0 Output Total 1350 0 Balance -330 0 Weight 120.656 kg 111.6 kg Intake: IV 1020 0 0.9 720 0 Output: Urine 1350 0 Other: Voiding Method Urinal # Voids 1 - Labs CBC & Chem 7: 10/24/22 19:00 10/25/22 02:09 Labs: Abnormal Lab Results - Last 24 Hours (Table) 10/24/22 10/24/22 10/24/22 Range/Units 19:00 19:00 19:00 WBC 17.6 H (3.8-10.6) k/uL Neutrophils # 13.1 H (1.3-7.7) k/uL APTT 50.4 H (22.0-30.0) sec Carbon Dioxide 21 L (22-30) mmol/L Glucose 164 H (74-99) mg/dL POC Glucose (mg/dL) (70-110) mg/dL Troponin I (0.000-0.034) ng/mL 10/24/22 10/24/22 10/25/22 Range/Units 21:01 22:30 02:09 WBC (3.8-10.6) k/uL Neutrophils # (1.3-7.7) k/uL APTT (22.0-30.0) sec Carbon Dioxide (22-30) mmol/L Glucose (74-99) mg/dL POC Glucose (mg/dL) 115 H (70-110) mg/dL Troponin I 23.200 H* 49.800 H* (0.000-0.034) ng/mL 10/25/22 Range/Units 02:09 WBC (3.8-10.6) k/uL Neutrophils # (1.3-7.7) k/uL APTT (22.0-30.0) sec Carbon Dioxide (22-30) mmol/L Glucose 114 H (74-99) mg/dL POC Glucose (mg/dL) (70-110) mg/dL Troponin I (0.000-0.034) ng/mL
[2022-10-25 08:54] LABS: Chol/HDL Ratio 4.35 Ratio; LDL Cholesterol,Calculated 102.1 mg/dL (0.0-131.0)
[2022-10-25] MEDS: METOPROLOL TARTRATE 25 MG TAB PO SCH ×2 (09:52→20:22)
[2022-10-25] MEDS: PRASUGREL 10 MG TAB PO SCH (09:52)
[2022-10-25] MEDS: ASPIRIN 81 MG PO SCH (09:52)
[2022-10-25 11:37] LABS: Glucose,Whole Blood 117 mg/dL (70-110)
[2022-10-25 12:01] VITALS: BMI 39.6
--- NOTE | 2022-10-25 15:16 | P.HPIM ---
History of Present Illness H&P Date: 10/25/22 Chief Complaint: Chest pain This is a 42-year-old patient who follows Dr. Remy. Chronic stable medical conditions include hydrocephalus from 1 shunt placed at the very early age and the second shunt flows please in 1995. Patient lives with his and 7 children. Patient follows having an argument with his with texting on the smart phone. Patient then developed pressure across the chest. When it is left arm. And fluctuated. Does no dizziness no perspiration or nausea and no shortness of breath. Finally his sister, and decided to bring him to the ER. Patient did get relief with the first nitroglycerin he received. EKG with patient having an ST elevation of the inferior wall. Taken to the cardiac supervisor dental laboratory picks successful stenting of the RCA. Which is 100% blocked. Down to 0% This morning patient in ICU. Sitting up in bed.no chest pain. No shortness of breath. Review of systems: GEN.: Tired EYES: None HEENT: None NECK: None RESPIRATORY: None CARDIOVASCULAR: As above] GASTROINTESTINAL: None GENITOURINARY: None MUSCULOSKELETAL: None LYMPHATICS: None HEMATOLOGICAL: None PSYCHIATRY: None NEUROLOGICAL: None Past medical history to include: Congenital hydrocephalus with a shunt during his first year of life and then in 1995. Hyperlipidemia. Social history: Lives with his and 7 children Physical examination: VITAL SIGNS: 98, 83, 16, 138/88, 95% GENERAL: BMI 39.7, sitting up in bed awake comfortable. EYES: Pupils equal. Conjunctiva normal. HEENT: External appearance of nose and ears normal, oral cavity grossly normal. NECK: JVD not raised; masses not palpable. HEART: First and second heart sounds are normal; no edema. LUNGS: Respiratory rate normal; clear to auscultation. ABDOMEN: Soft, nontender, liver spleen not palpable, no masses palpable. PSYCH: Alert and oriented x3; mood and affect normal. MUSCULOSKELETAL:No Clubbing/cyanosis;muscles-grossly intact NEUROLOGICAL: Cranial nerves grossly intact; no facial asymmetry, power and sensation grossly intact. LYMPHATICS: No lymph nodes palpable in the axilla and neck INVESTIGATIONS, reviewed in the clinical context: White count 13.6 hemoglobin 15.4 platelets 424 sodium 139 potassium 4.2 BUN 18 creatinine 0.96 Troponin I is less than 0.012, 23.2, 49.8 LDL 102 EKG tracing personally reviewed by me-ST elevation inferior leads. Reciprocal Changes in lead 1 aVL. Sinus rhythm Assessment and plan: -Acute inferior wall HI with emergent cardiac catheterization with stent to the RCA that was 100% blocked down to 0% Aspirin, Lipitor, Lopressor, Effient. Add lisinopril 5 mg daily at bedtime -Hyperlipidemia Lipitor 80 mg daily at bedtime -Congenital hydrocephalus with the stent placed in 1995 -Morbid obesity BMI 39.7 Weight loss measures Care was discussed with the patient. Question answered. Follow-up with cardiology Past Medical History Past Medical History: Hyperlipidemia Additional Past Medical History / Comment(s): hydrocephalis History of Any Multi-Drug Resistant Organisms: None Reported Additional Past Surgical History / Comment(s): vp public relations shunt, vasectomy November 2018 Past Anesthesia/Blood Transfusion Reactions: No Reported Reaction Past Psychological History: Anxiety, Depression Smoking Status: Former smoker Past Alcohol Use History: None Reported Past Drug Use History: None Reported - Past Family History Father Family Medical History: Cancer, Chest Pain / Angina, Coronary Artery Disease (CAD), Hyperlipidemia, Hypertension Additional Family Medical History / Comment(s): from colon cancer Mother Family Medical History: Coronary Artery Disease (CAD), Diabetes Mellitus, Hyperlipidemia, Hypertension Medications and Allergies Home Medications Medication Instructions Recorded Confirmed Type Atorvastatin Calcium [Lipitor] 20 mg PO DAILY 04/26/20 10/24/22 History Allergies Allergy/AdvReac Type Severity Reaction Status Date / Time No Known Allergies Allergy Verified 10/24/22 19:07 Physical Exam Vitals: Vital Signs Temp Pulse Resp BP Pulse Ox 10/25/22 07:00 93 17 122/75 93 L 10/25/22 06:00 81 15 103/64 92 L 10/25/22 05:00 78 14 135/96 93 L 10/25/22 04:00 82 12 163/106 92 L 10/25/22 03:00 92 16 129/88 92 L 10/25/22 02:00 89 15 145/94 91 L 10/25/22 01:00 97 17 108/94 95 10/25/22 00:00 92 14 147/86 95 10/24/22 23:30 89 10 L 147/86 96 10/24/22 23:00 94 16 96 10/24/22 22:30 85 15 95 04/20/23 22:00 88 12 143/81 97 10/24/22 21:30 104 H 14 155/98 97 10/24/22 21:00 97.5 F L 90 14 155/98 98 10/24/22 19:02 95 16 138/82 92 L 10/24/22 18:57 89 16 133/88 93 L 10/24/22 18:51 97.2 F L 94 16 130/75 91 L Intake and Output 10/24/22 10/25/22 10/25/22 22:59 06:59 14:59 Intake Total 540 480 0 Output Total 350 1000 0 Balance 190 -520 0 Intake: IV 540 480 0 0.9 240 480 0 Output: Urine 350 1000 0 Other: Voiding Method Urinal Urinal # Voids 1 1 Weight 120.656 kg 111.6 kg Results CBC & Chem 7: 10/24/22 19:00 10/25/22 02:09 Labs: Abnormal Lab Results - Last 24 Hours (Table) 10/24/22 10/24/22 10/24/22 Range/Units 19:00 19:00 19:00 WBC 17.6 H (3.8-10.6) k/uL Neutrophils # 13.1 H (1.3-7.7) k/uL APTT 50.4 H (22.0-30.0) sec Carbon Dioxide 21 L (22-30) mmol/L Glucose 164 H (74-99) mg/dL POC Glucose (mg/dL) (70-110) mg/dL Troponin I (0.000-0.034) ng/mL HDL Cholesterol (40.00-60.00) mg/dL 10/24/22 10/24/22 10/24/22 Range/Units 21:01 22:30 22:30 WBC (3.8-10.6) k/uL Neutrophils # (1.3-7.7) k/uL APTT (22.0-30.0) sec Carbon Dioxide (22-30) mmol/L Glucose (74-99) mg/dL POC Glucose (mg/dL) 115 H (70-110) mg/dL Troponin I 23.200 H* (0.000-0.034) ng/mL HDL Cholesterol 37.50 L (40.00-60.00) mg/dL 10/25/22 10/25/22 Range/Units 02:09 02:09 WBC (3.8-10.6) k/uL Neutrophils # (1.3-7.7) k/uL APTT (22.0-30.0) sec Carbon Dioxide (22-30) mmol/L Glucose 114 H (74-99) mg/dL POC Glucose (mg/dL) (70-110) mg/dL Troponin I 49.800 H* (0.000-0.034) ng/mL HDL Cholesterol (40.00-60.00) mg/dL Thrombosis Risk Factor Assmnt - Choose All That Apply Any of the Below Risk Factors Present?: Yes Each Factor Represents 1 point: Acute HI, Medical pt on bed rest, Obesity (BMI >25) Other Risk Factors: No Other congenital or acquired thrombophilia - If yes, enter type in comment: No Thrombosis Risk Factor Assessment Total Risk Factor Score: 3 Thrombosis Risk Factor Assessment Level: Moderate Risk
--- NOTE | 2022-10-25 19:23 | CA ---
Transthoracic Echo Report Name: Ford Garcia Age: 42 Gender: M : 1980 Exam Date: 10/25/2022 08:21 Exam Location: [facility] Ht (in): 66 Wt (lb): 275 Ordering Physician: Stephan Yadav MD ([id number]) Attending/Referring Phys: Continuity Person Ej Munson RDCS Procedure CPT: Indications: AK Cardiac Hx: Obesity; High Chol; Technical Quality: Technically difficult study Contrast 1: Lumason Total Dose (mL): 6 Contrast 2: Total Dose (mL): MEASUREMENTS (Male / Female) Normal Values 2D ECHO LV Diastolic Diameter PLAX 3.7 cm 4.2 - 5.9 / 3.9 - 5.3 cm LV Systolic Diameter PLAX 3.1 cm LV Fractional Shortening PLAX 17.1 % IVS Diastolic Thickness 1.6 cm 0.6 - 1.0 / 0.6 - 0.9 cm IVS Systolic Thickness 1.9 cm LVPW Diastolic Thickness 1.4 cm 0.6 - 1.0 / 0.6 - 0.9 cm LVPW Systolic Thickness 1.7 cm LV Relative Wall Thickness 0.8 LVOT Diameter 2.0 cm Aortic Root Diameter 2.8 cm LA Systolic Diameter LX 3.6 cm 3.0 - 4.0 / 2.7 - 3.8 cm LA Ao Ratio 1.3 LV Diastolic Volume MOD BP 64.2 cm??? 67 - 155 / 56 - 104 cm??? LV Systolic Volume MOD BP 30.5 cm??? 22 - 58 / 19 - 49 cm??? LV Ejection Fraction MOD BP 52.4 % >= 55 % LV Stroke Volume MOD BP 33.7 cm??? LV Diastolic Volume MOD 4C 82.9 cm??? LV Systolic Volume MOD 4C 29.1 cm??? LV Ejection Fraction MOD 4C 64.9 % LV Stroke Volume MOD 4C 53.7 cm??? LV Diastolic Length 4C 8.4 cm LV Systolic Length 4C 6.3 cm LV Diastolic Volume MOD 2C 43.7 cm??? LV Systolic Volume MOD 2C 28.1 cm??? LV Ejection Fraction MOD 2C 35.7 % LV Stroke Volume MOD 2C 15.6 cm??? LV Diastolic Length 2C 7.3 cm LV Systolic Length 2C 7.3 cm Ascending Aorta Diameter 2.5 cm M-MODE Aortic Root Diameter MM 2.7 cm LA Systolic Diameter MM 3.6 cm LA Ao Ratio MM 1.3 MV E Point Septal Separation 1.5 cm AV Cusp Separation MM 1.6 cm DOPPLER AV Peak Velocity 126.7 cm/s AV Peak Gradient 6.4 mmHg MV Deceleration Gallia 556.9 cm/s??? Mitral E Point Velocity 99.9 cm/s Mitral A Point Velocity 90.9 cm/s Mitral E to A Ratio 1.1 MV Deceleration Time 179.4 ms MV E' Velocity 7.1 cm/s Mitral E to MV E' Ratio 14.0 TR Peak Velocity 155.1 cm/s TR Peak Gradient 9.6 mmHg Right Ventricular Systolic Press 16.4 mmHg PV Peak Velocity 83.5 cm/s PV Peak Gradient 2.8 mmHg FINDINGS Left Ventricle Left ventricular ejection fraction is estimated at 55-60%. Mild concentric left ventricular hypertrophy. Grade 2 diastolic dysfunction. Normal basal systolic function. Right Ventricle Normal right ventricular size and function. RVSP- 25 mm Hg. Right Atrium Normal right atrial size. Left Atrium Normal left atrial size. Mitral Valve Structurally normal mitral valve. Trace to mild mitral regurgitation. Aortic Valve Trileaflet aortic valve. Diffuse thickening (sclerosis) of the aortic valve cusps without reduced excursion. Tricuspid Valve Mild tricuspid regurgitation. Pulmonic Valve Structurally normal pulmonic valve. Pericardium Normal pericardium. No pericardial effusion. Aorta Normal size aortic root and proximal ascending aorta. CONCLUSIONS LVH with preserved systolic function Previewed by: Dr. Quinn Ortiz MD (Electronically Signed) Final Date: 25 October 2022 19:22
[2022-10-25] MEDS: ATORVASTATIN 80 MG TAB PO SCH (20:22)
[2022-10-25] MEDS: lisinopriL 5 MG TAB PO SCH (20:22)
[2022-10-26 08:21] LABS: African American GFR (CKD) >90 (>60 ml/min/1.73 sqM); Anion Gap 7 mmol/L; Blood Urea Nitrogen 16 mg/dL (9-20); Calcium 8.8 mg/dL (8.4-10.2); Carbon Dioxide 26 mmol/L (22-30); Chloride 106 mmol/L (98-107); Glucose 116 mg/dL (74-99); Non-African American GFR(CKD) >90 (>60 ml/min/1.73 sqM); Potassium 3.9 mmol/L (3.5-5.1); Sodium 139 mmol/L (137-145)
[2022-10-26] MEDS: ASPIRIN 81 MG PO SCH (08:39)
[2022-10-26] MEDS: PRASUGREL 10 MG TAB PO SCH (08:39)
[2022-10-26] MEDS: METOPROLOL TARTRATE 25 MG TAB PO SCH ×2 (08:39→20:02)
--- NOTE | 2022-10-26 14:30 | P.PN ---
Subjective Progress Note Date: 10/26/22 PROGRESS NOTE The patient is a 42-year-old male who presented with an acute inferior wall myocardial infarction, was found to have a totally occluded right coronary artery, underwent stenting of that vessel. He's feeling well this morning. He denies any chest discomfort, dizziness or palpitations. Hemodynamically he is stable. He continues to be in sinus mechanism. His urinary output is stable. October 26: The patient is feeling better today, ambulating without chest discomfort. He denies any dizziness, palpitations or syncope. Hemodynamically he is stable and continues to be in sinus mechanism. He had an echocardiogram that showed an ejection fraction of 55-60% with trace to mild mitral regurgitation. Medications: Aspirin, Lipitor 80 mg daily, metoprolol 25 mg twice a day, Effient 10 mg daily, Zestril 5 mg daily PHYSICAL EXAMINATION: Blood pressure 121/70 heart rate 75, obese LUNGS: Clear to auscultation HEART: Regular rate and rhythm, S1, S2. No S3. No systolic murmur ABDOMEN: Soft, nontender, no organomegaly EXTREMETIES: No edema, LAB: Potassium 3.9, BUN 16, creatinine 1.0. IMPRESSION: 1. Status post STEMI with inferior wall myocardial infarction, status post stenting of the RCA 2. History of hyperlipidemia 3. overweight PLAN: 1. Continue present therapy 2. Increase activity. 3. If stable, probable discharge home tomorrow. Objective - Vital Signs Vital signs: Vital Signs Temp 98.2 F 10/26/22 10:59 Pulse 75 10/26/22 10:59 Resp 16 10/26/22 10:59 BP 121/76 10/26/22 10:59 Pulse Ox 95 10/26/22 10:59 FiO2 Intake & Output 10/25/22 10/26/22 10/26/22 18:59 06:59 18:59 Intake Total 123 118 370 Output Total 0 1 0 Balance 123 117 370 Weight 111.6 kg Intake: IV 5 10 0.9 0 Invasive Line 2 5 10 Oral 118 118 360 Output: Urine 0 1 0 Stool 0 Urine/Stool Mix 0 Emesis 0 Oral Regurgitation 0 Other 0 Other: Voiding Method Urinal Urinal Urinal # Voids 2 0 # Bowel Movements 0 - Labs CBC & Chem 7: 10/24/22 19:00 10/26/22 07:56 Labs: Abnormal Lab Results - Last 24 Hours (Table) 10/26/22 Range/Units 07:56 Glucose 116 H (74-99) mg/dL
--- NOTE | 2022-10-26 17:08 | P.PN ---
Subjective Progress Note Date: 10/26/22 This is a pleasant 42 year old male. He was found to have inferior wall ST elevation DC and underwent cardiac stenting to the RCA. He has been started on aspirin/effient. He has no acute events overnight denying chest pain. He is counseled on lifestyle and dietary modifications. Echocardiogram done showing an EF of 55-60% there is grade 2 diastolic dysfunction. Trace to mild mitral regurgitation. Mild tricuspid regurgitation. Kidney function stable today. Review of Systems Constitutional: Denied any fatigue denied any fever. Cardio vascular: denied any chest pain, palpitations Gastrointestinal: denied any nausea, vomiting, diarrhea Pulmonary: Denied any shortness of breath cough Neurologic denied any new focal deficits All inpatient medications were reviewed and appropriate changes in these medications as dictated in the interval history and assessment and plan. PHYSICAL EXAMINATION: GENERAL: The patient is alert and oriented x3, not in any acute distress. Well developed, well nourished. HEENT: Pupils are round and equally reacting to light. EOMI. No scleral icterus. No conjunctival pallor. Normocephalic, atraumatic. No pharyngeal erythema. No thyromegaly. CARDIOVASCULAR: S1 and S2 present. No murmurs, rubs, or gallops. PULMONARY: Chest is clear to auscultation, no wheezing or crackles. ABDOMEN: Soft, nontender, nondistended, normoactive bowel sounds. No palpable organomegaly. MUSCULOSKELETAL: No joint swelling or deformity. EXTREMITIES: No cyanosis, clubbing, or pedal edema. NEUROLOGICAL: Gross neurological examination did not reveal any focal deficits. SKIN: No rashes. Assessment and Plan Assessment -Acute inferior wall DC with emergent cardiac catheterization with stent to the RCA -Hyperlipidemia -Congenital hydrocephalus with the stent placed in 1995 -Morbid obesity BMI 39.7 GI prophylaxis Full Code Plan Continue current cardiac medications. Patient possibly D/C tomorrow if cleared by cardiology. Patient has been counseled on diet modifications. The impression and plan of care has been dictated by Christie Pedro Nurse Practitioner as directed. Dr. Osbaldo MD I have performed a history and physical examination and medical decision making of this patient, discussed the same with the dictator, and agree with the dictators assessment and plan as written, documented as a scribe. Based on total visit time, I have performed more than 50% of this visit. Objective - Vital Signs Vital signs: Vital Signs Temp 97.9 F 10/26/22 15:40 Pulse 75 10/26/22 15:40 Resp 16 10/26/22 15:40 BP 127/82 10/26/22 15:40 Pulse Ox 95 10/26/22 15:40 FiO2 Intake & Output 10/25/22 10/26/22 10/26/22 18:59 06:59 18:59 Intake Total 123 118 370 Output Total 0 1 0 Balance 123 117 370 Weight 111.6 kg Intake: IV 5 10 0.9 0 Invasive Line 2 5 10 Oral 118 118 360 Output: Gastric Drainage 0 Urine 0 1 0 Stool 0 Urine/Stool Mix 0 Emesis 0 Oral Regurgitation 0 Other 0 Other: Voiding Method Urinal Urinal Urinal # Voids 2 0 # Bowel Movements 0 - Labs CBC & Chem 7: 10/24/22 19:00 10/26/22 07:56 Labs: Abnormal Lab Results - Last 24 Hours (Table) 10/26/22 Range/Units 07:56 Glucose 116 H (74-99) mg/dL Assessment and Plan Time with Patient: Less than 30
[2022-10-26] MEDS: lisinopriL 5 MG TAB PO SCH (20:02)
[2022-10-26] MEDS: ATORVASTATIN 80 MG TAB PO SCH (20:02)
[2022-10-27 07:39] VITALS: RESP 18
[2022-10-27] MEDS: ASPIRIN 81 MG PO SCH (07:39)
[2022-10-27] MEDS: METOPROLOL TARTRATE 25 MG TAB PO SCH (07:39)
[2022-10-27] MEDS: PRASUGREL 10 MG TAB PO SCH (07:39)
--- NOTE | 2022-10-27 11:01 | P.PN ---
Subjective Progress Note Date: 10/27/22 PROGRESS NOTE The patient is a 42-year-old male who presented with an acute inferior wall myocardial infarction, was found to have a totally occluded right coronary artery, underwent stenting of that vessel. He's feeling well this morning. He denies any chest discomfort, dizziness or palpitations. Hemodynamically he is stable. He continues to be in sinus mechanism. His urinary output is stable. October 26: The patient is feeling better today, ambulating without chest discomfort. He denies any dizziness, palpitations or syncope. Hemodynamically he is stable and continues to be in sinus mechanism. He had an echocardiogram that showed an ejection fraction of 55-60% with trace to mild mitral regurgitation. October 27: The patient is doing well this morning, ambulating without difficulties. He d enies any chest discomfort, dizziness or palpitations. He denies any nausea or vomiting. He continues to be in sinus mechanism. He is anxious to go home. Medications: Aspirin, Lipitor 80 mg daily, metoprolol 25 mg twice a day, Effient 10 mg daily, Zestril 5 mg daily PHYSICAL EXAMINATION: Blood pressure 109/70 heart rate 80, obese LUNGS: Clear to auscultation HEART: Regular rate and rhythm, S1, S2. No S3. No systolic murmur ABDOMEN: Soft, nontender, no organomegaly EXTREMETIES: No edema, IMPRESSION: 1. Status post STEMI with inferior wall myocardial infarction, status post stenting of the RCA 2. History of hyperlipidemia 3. overweight PLAN: 1. Continue present therapy 2. Charge home today 3. Follow-up with Dr. Falcon Objective - Vital Signs Vital signs: Vital Signs Temp 97.9 F 10/27/22 07:38 Pulse 80 10/27/22 07:38 Resp 18 10/27/22 07:38 BP 145/78 10/27/22 07:38 Pulse Ox 95 10/27/22 09:00 FiO2 Intake & Output 10/26/22 10/27/22 10/27/22 18:59 06:59 18:59 Intake Total 490 540 10 Output Total 0 1 Balance 490 539 10 Intake: IV 10 10 Invasive Line 2 10 10 Oral 480 540 Output: Gastric Drainage 0 Urine 0 1 Stool 0 Urine/Stool Mix 0 Emesis 0 Oral Regurgitation 0 Other 0 Other: Voiding Method Urinal Urinal Urinal # Voids 0 2 # Bowel Movements 0 - Labs CBC & Chem 7: 04/20/23 19:00 10/26/22 07:56
[2022-10-27 13:15] VITALS: BP 136/91; PULSE 61; TEMP 97.6
--- NOTE | 2022-10-28 22:38 | P.DS ---
Providers Date of admission: 10/24/22 19:13 Attending physician: Kade Ferguson Consults: 10/24/22 20:23 Consult Physician Routine Consulting Provider: [facility] Consult Reason/Comments: Post Interventional Patient Do you want consulting provider notified?: Already Contacted Primary care physician: [facility] Course: Final Diagnosis -Acute inferior wall STEMI with emergent cardiac catheterization with stent to the RCA -Leukocytosis -Hyperlipidemia -Congenital hydrocephalus with the stent placed in 1995 -Anxiety/Depression -Former Smoker -Obesity BMI 39.7 Full Code Discharge Disposition Patient is stable for discharge home. Recommended for close cardiology follow up on discharge. Patient has been started on aspirin and effient dual antiplatelet therapy recommending to continue for 1 year post stent. Patient is discharged on high intensity statin therapy and educated on lifestyle and diet modifications. Patient to repeat a BMP in 2 to 3 days. Hospital Course This is a pleasant 42 year old male. He was found to have inferior wall ST elevation LA and underwent emergenct cardiac stenting to the RCA which was found to be totally occluded. He has been started on aspirin/effient. Patient has known medical history of hyperlipidemia, congenital hydrocephalus with BUTCHER HEAD shunt in 1995, former smoker, anxiety/depression. Patient does have significant family history of coronary artery disease and hypertension. He is counseled on lifestyle and dietary modifications. Echocardiogram done showing an EF of 55-60% there is grade 2 diastolic dysfunction. Trace to mild mitral regurgitation. Mild tricuspid regurgitation. Patient post cath is doing well, he is hemodynamically stable. He is in sinus rhythm. Denying chest pain, no shortness of breath. He has been up ambulating. He had lipid panel completed showing triglycerides of 117, cholesterol of 163, LDL of 102 and HDL of 37.5. Please see medication reconciliation for a list of current medication. Thank you for allowing us to participate in the care of this patient. The impression and plan of care has been dictated by Christie Pedro, Nurse Practitioner as directed. Dr. Osbaldo MD I have performed a history and physical examination and medical decision making of this patient, discussed the same with the dictator, and agree with the dictators assessment and plan as written, documented as a scribe. Based on total visit time, I have performed more than 50% of this visit. Patient Condition at Discharge: Stable Plan - Discharge Summary Discharge Rx Participant: Yes New Discharge Prescriptions: New Atorvastatin [Lipitor] 80 mg PO HS #30 tab Metoprolol Tartrate [Lopressor] 25 mg PO BID #60 tab Aspirin 81 mg PO DAILY #30 tab Prasugrel [Effient] 10 mg PO DAILY #30 tab Nitroglycerin Sl Tabs [Nitrostat] 0.4 mg SUBLINGUAL Q5M PRN #20 tab PRN Reason: Chest Pain lisinopriL [Zestril] 5 mg PO HS #30 tab Discontinued Atorvastatin Calcium [Lipitor] 20 mg PO DAILY Discharge Medication List Aspirin 81 mg PO DAILY #30 tab 10/27/22 [Rx] Atorvastatin [Lipitor] 80 mg PO HS #30 tab 10/27/22 [Rx] Metoprolol Tartrate [Lopressor] 25 mg PO BID #60 tab 10/27/22 [Rx] Nitroglycerin Sl Tabs [Nitrostat] 0.4 mg SUBLINGUAL Q5M PRN #20 tab 10/27/22 [Rx] Prasugrel [Effient] 10 mg PO DAILY #30 tab 10/27/22 [Rx] lisinopriL [Zestril] 5 mg PO HS #30 tab 10/27/22 [Rx] Follow up Appointment(s)/Referral(s): Abdon Montes De Oca DO [Primary Care Provider] - 1-2 Days None,Stated [REFERRING] - 1-2 days Kenton Falcon MD [STAFF PHYSICIAN] - 1 Week Ambulatory/Diagnostic Orders: Basic Metabolic Panel [LAB.AMB] Time Frame: 3 Days, Location: None Selected Patient Instructions/Handouts: Heart Attack (DC), Heart Healthy Diet (DC), Safe Use of Antiplatelet Medication (DC), Heart Catheterization (DC), Angio-Seal (DC), Mediterranean Diet (DC) Activity/Diet/Wound Care/Special Instructions: Patient needs information on cardiac rehabilitation Activity limited until follow up with PCP and cardiology after discharge Discharge/Stand Alone Forms: Work/Release Restrictions Form Discharge Disposition: HOME SELF-CARE
== END 2022-10-27 13:27 | disposition home or self-care (01) | DRG 174 ==
LOC: EC 18:50 → 2SICU 19:13 → 3SCARD 10-25 12:48
PROVIDERS: ADMIT Hospitalist; ATTEND Hospitalist
PROC: B2111ZZ Fluoroscopy of Multiple Coronary Arteries using Low Osmolar Contrast (ICD-10-PCS; 2022-10-24)
PROC: 027034Z Dilation of Coronary Artery, One Artery with Drug-eluting Intraluminal Device, Percutaneous Approach (ICD-10-PCS; principal; 2022-10-24 19:05)
PROC: 6A750Z5 Ultrasound Therapy of Heart, Single (ICD-10-PCS; 2022-10-24 19:05)
PROC: 4A023N7 Measurement of Cardiac Sampling and Pressure, Left Heart, Percutaneous Approach (ICD-10-PCS; 2022-10-24 19:05)
DX: I21.19 ST elevation (STEMI) myocardial infarction involving other coronary artery of inferior wall (principal); E66.01 Morbid (severe) obesity due to excess calories; F32.A Depression, unspecified; E78.5 Hyperlipidemia, unspecified; F41.9 Anxiety disorder, unspecified; I08.1 Rheumatic disorders of both mitral and tricuspid valves; Z68.39 Body mass index [BMI] 39.0-39.9, adult; Z98.2 Presence of cerebrospinal fluid drainage device; Z79.899 Other long term (current) drug therapy; Z82.49 Family history of ischemic heart disease and other diseases of the circulatory system; Q03.9 Congenital hydrocephalus, unspecified; Z87.891 Personal history of nicotine dependence
CPT/HCPCS: 36415; 80048; 80053; 80061; 83735; 84484; 85025; 85610; 85730; 92978; 93005; 93306; 93458; 94760; 96374; 99291

== ENCOUNTER 2022-11-10 10:29 | Observation (INO) | payer OTHER ==
[2022-11-10] MEDS ORDERED: NITROGLYCERIN OINT 1 INCH/GM PACKET TOPICAL STA (10:43)
[2022-11-10] MEDS ORDERED: ASPIRIN 81 MG PO STA (10:43)
--- NOTE | 2022-11-10 10:45 | ED ---
General Adult HPI - General Chief complaint: Chest Pain Stated complaint: chest and L arm feels heavy Time Seen by Provider: 11/10/22 10:30 Source: patient, RN notes reviewed, old records reviewed Mode of arrival: ambulatory Limitations: no limitations - History of Present Illness Initial comments: This is a 42-year-old male presents emergency department stating that for the last hour he is been having chest heaviness that radiates into his left arm. Patient denies any difficulty breathing shortness of breath. Patient states the pain is still there but it has improved. Patient states he had a heart attack last month with a cardiac stent. Patient also states he has high blood pressure high cholesterol. Patient states she's had no diaphoretic episode today denies any nausea. Patient denies lightheadedness or dizziness. Patient denies any numbness or weakness. Patient denies any abdominal pain patient denies nausea vomiting diarrhea. - Related Data Previous Rx's Medication Instructions Recorded Aspirin 81 mg PO DAILY #30 tab 10/27/22 Atorvastatin [Lipitor] 80 mg PO HS #30 tab 10/27/22 Metoprolol Tartrate [Lopressor] 25 mg PO BID #60 tab 10/27/22 Nitroglycerin Sl Tabs [Nitrostat] 0.4 mg SUBLINGUAL Q5M PRN #20 tab 10/27/22 Prasugrel [Effient] 10 mg PO DAILY #30 tab 10/27/22 lisinopriL [Zestril] 5 mg PO HS #30 tab 10/27/22 Allergies Allergy/AdvReac Type Severity Reaction Status Date / Time No Known Allergies Allergy Verified 11/10/22 10:34 Review of Systems ROS Statement: Those systems with pertinent positive or pertinent negative responses have been documented in the HPI. ROS Other: All systems not noted in ROS Statement are negative. Past Medical History Past Medical History: Hyperlipidemia Additional Past Medical History / Comment(s): hydrocephalis History of Any Multi-Drug Resistant Organisms: None Reported Past Surgical History: Heart Catheterization With Stent Additional Past Surgical History / Comment(s): svp monetization shunt, vasectomy November 2018 Past Anesthesia/Blood Transfusion Reactions: No Reported Reaction Past Psychological History: Anxiety, Depression Smoking Status: Former smoker Past Alcohol Use History: None Reported Past Drug Use History: None Reported - Past Family History Father Family Medical History: Cancer, Chest Pain / Angina, Coronary Artery Disease (CAD), Hyperlipidemia, Hypertension Additional Family Medical History / Comment(s): from colon cancer Mother Family Medical History: Coronary Artery Disease (CAD), Diabetes Mellitus, Hyperlipidemia, Hypertension General Exam - General Exam Comments Initial Comments: GENERAL: Patient is well-developed and well-nourished. Patient is nontoxic and well- hydrated and is in mild distress. ENT: Neck is soft and supple. No significant lymphadenopathy is noted. Oropharynx is clear. Moist mucous membranes. Neck has full range of motion without eliciting any pain. EYES: The sclera were anicteric and conjunctiva were pink and moist. Extraocular movements were intact and pupils were equal round and reactive to light. Eyelids were unremarkable. PULMONARY: Unlabored respirations. Good breath sounds bilaterally. No audible rales rhonchi or wheezing was noted. CARDIOVASCULAR: There is a regular rate and rhythm without any murmurs gallops or rubs. ABDOMEN: Soft and nontender with normal bowel sounds. SKIN: Skin is clear with no lesions or rashes and otherwise unremarkable. NEUROLOGIC: Patient is alert and oriented x3. Cranial nerves II through XII are grossly intact. Motor and sensory are also intact. Normal speech, volume and content. Symmetrical smile. MUSCULOSKELETAL: Normal extremities with adequate strength and full range of motion. LYMPHATICS: No significant lymphadenopathy is noted PSYCHIATRIC: Normal psychiatric evaluation. Limitations: no limitations Course Vital Signs 11/10/22 11/10/22 10:32 11:35 Temperature 98 F Pulse Rate 77 Respiratory 18 Rate Blood Pressure 163/101 139/81 O2 Sat by Pulse 100 Oximetry Medical Decision Making - Medical Decision Making EKG is interpreted by myself shows sinus rhythm at 73 bpm MO interval 164 QRS is 84 QT interval 360 QTC is 3. Patient's EKG shows no ST segment elevation or depression. Was pt. sent in by a medical professional or institution (, PA, TRAIN STATION AGENT, urgent care, hospital, or fci...) When possible be specific @ -[No] Did you speak to anyone other than the patient for history (EMS, parent, family, police, friend...)? What history was obtained from this source @ -[No] Did you review nursing and triage notes (agree or disagree)? Why? @ -[I reviewed and agree with nursing and triage notes] Were old charts reviewed (outside hosp., previous admission, EMS record, old EKG, old radiological studies, urgent care reports/EKG's, fci records)? Report findings @ -Review patient's prior EKGs prior catheterization report and prior lab work Differential Diagnosis (chest pain, altered mental status, abdominal pain women, abdominal pain men, vaginal bleeding, weakness, fever, dyspnea, syncope, head ache, dizziness, GI bleed, back pain, seizure, CVA, palpatations, mental health, musculoskeletal)? @ -Differential Chest Pain: Stable Angina, Unstable Angina, STEMI, NSTEMI Aortic Dissection, Pneumothorax, Musculoskeletal, Esophageal Spasm GERD, Cholecystitis, Pancreatitis, Zoster, this is not meant to be an all-inclusive list. EKG interpreted by me (3pts min.). @ -[As above] X-rays interpreted by me (1pt min.). @ -Checks x-ray is interpreted by me shows no acute abnormality CT interpreted by me (1pt min.). @ -[None done] U/S interpreted by me (1pt. min.). @ -[None done] What testing was considered but not performed or refused? (CT, X-rays, U/S, labs)? Why? @ -[None] What meds were considered but not given or refused? Why? @ -[None] Did you discuss the management of the patient with other professionals (professionals i.e. , PA, TRAIN STATION AGENT, lab, RT, psych nurse, social work lecturer, cylinder head assembler, teacher, welfare officer, shelter case manager)? Give summary @ -Spoke with Dr. Anne he agreed to admit the patient admitted the patient Was smoking cessation discussed for >3mins.? @ -[No] Was critical care preformed (if so, how long)? @ -[No] Were there social determinants of health that impacted care today? How? ( Homelessness, low income, unemployed, alcoholism, drug addiction, transportation, low edu. Level, literacy, decrease access to med. care, long term, rehab)? @ -[No] Was there de-escalation of care discussed even if they declined (Discuss DNR or withdrawal of care, Hospice)? DNR status @ -[No] What co-morbidities impacted this encounter? (DM, HTN, Smoking, COPD, CAD, Cancer, CVA, ARF, Chemo, Hep., AIDS, mental health diagnosis, sleep apnea, morbid obesity)? @ -[None] Was patient admitted / discharged? Hospital course, mention meds given and route, prescriptions, significant lab abnormalities, going to OR and other pertinent info. @ -Patient was seen in the hospital his pain was already getting a little bit better. Patient was then given nitro glycerin paste and aspirin. He stated that the pain went away completely. I spoke with the patient also spoke admitt ing the patient accepted the admission I wrote admitting orders I consulted cardiology Undiagnosed new problem with uncertain prognosis? @ -[No] Drug Therapy requiring intensive monitoring for toxicity (Heparin, Nitro, Insulin, Cardizem)? @ -[No] Were any procedures done? @ -[No] Diagnosis/symptom? @ -Chest pain Acute, or Chronic, or Acute on Chronic? @ -Acute Uncomplicated (without systemic symptoms) or Complicated (systemic symptoms)? @ -Complicated Side effects of treatment? @ -[No] Exacerbation, Progression, or Severe Exacerbation? @ -[No] Poses a threat to life or bodily function? How? (Chest pain, USA, SD, pneumonia, PE, COPD, DKA, ARF, appy, cholecystitis, CVA, Diverticulitis, Homicidal, Suicidal, threat to staff... and all critical care pts) @ -Yes this could lead to poor perfusion and organ dysfunction - Lab Data Result diagrams: 11/10/22 10:53 11/10/22 10:53 Lab Results 11/10/22 11/10/22 11/10/22 Range/Units 10:53 10:53 10:53 WBC 10.6 (3.8-10.6) k/uL RBC 5.64 (4.30-5.90) m/uL Hgb 15.8 (13.0-17.5) gm/dL Hct 47.8 (39.0-53.0) % MCV 84.8 (80.0-100.0) fL MCH 27.9 (25.0-35.0) pg MCHC 32.9 (31.0-37.0) g/dL RDW 13.2 (11.5-15.5) % Plt Count 334 (150-450) k/uL MPV 8.1 Neutrophils % 68 % Lymphocytes % 21 % Monocytes % 6 % Eosinophils % 3 % Basophils % 1 % Neutrophils # 7.2 (1.3-7.7) k/uL Lymphocytes # 2.2 (1.0-4.8) k/uL Monocytes # 0.7 (0-1.0) k/uL Eosinophils # 0.3 (0-0.7) k/uL Basophils # 0.1 (0-0.2) k/uL PT 10.3 (9.0-12.0) sec INR 1.0 (<1.2) APTT 23.6 (22.0-30.0) sec Sodium 141 (137-145) mmol/L Potassium 4.6 (3.5-5.1) mmol/L Chloride 106 (98-107) mmol/L Carbon Dioxide 25 (22-30) mmol/L Anion Gap 10 mmol/L BUN 25 H (9-20) mg/dL Creatinine 1.00 (0.66-1.25) mg/dL Est GFR (CKD-EPI)AfAm >90 (>60 ml/min/1.73 sqM) Est GFR (CKD-EPI)NonAf >90 (>60 ml/min/1.73 sqM) Glucose 127 H (74-99) mg/dL Calcium 9.6 (8.4-10.2) mg/dL Magnesium 2.1 (1.6-2.3) mg/dL Total Bilirubin 0.4 (0.2-1.3) mg/dL AST 23 (17-59) U/L ALT 37 (4-49) U/L Alkaline Phosphatase 102 (38-126) U/L Troponin I (0.000-0.034) ng/mL Total Protein 7.4 (6.3-8.2) g/dL Albumin 4.2 (3.5-5.0) g/dL 11/10/22 Range/Units 10:53 WBC (3.8-10.6) k/uL RBC (4.30-5.90) m/uL Hgb (13.0-17.5) gm/dL Hct (39.0-53.0) % MCV (80.0-100.0) fL MCH (25.0-35.0) pg MCHC (31.0-37.0) g/dL RDW (11.5-15.5) % Plt Count (150-450) k/uL MPV Neutrophils % % Lymphocytes % % Monocytes % % Eosinophils % % Basophils % % Neutrophils # (1.3-7.7) k/uL Lymphocytes # (1.0-4.8) k/uL Monocytes # (0-1.0) k/uL Eosinophils # (0-0.7) k/uL Basophils # (0-0.2) k/uL PT (9.0-12.0) sec INR (<1.2) APTT (22.0-30.0) sec Sodium (137-145) mmol/L Potassium (3.5-5.1) mmol/L Chloride (98-107) mmol/L Carbon Dioxide (22-30) mmol/L Anion Gap mmol/L BUN (9-20) mg/dL Creatinine (0.66-1.25) mg/dL Est GFR (CKD-EPI)AfAm (>60 ml/min/1.73 sqM) Est GFR (CKD-EPI)NonAf (>60 ml/min/1.73 sqM) Glucose (74-99) mg/dL Calcium (8.4-10.2) mg/dL Magnesium (1.6-2.3) mg/dL Total Bilirubin (0.2-1.3) mg/dL AST (17-59) U/L ALT (4-49) U/L Alkaline Phosphatase (38-126) U/L Troponin I <0.012 (0.000-0.034) ng/mL Total Protein (6.3-8.2) g/dL Albumin (3.5-5.0) g/dL Disposition Clinical Impression: Chest pain Disposition: ADMITTED IP TO THIS HOSP Referrals: Abdon Montes De Oca DO [Primary Care Provider] - 1-2 days Time of Disposition: 12:57
[2022-11-10 11:11] LABS: Basophils # (A) 0.1 k/uL (0-0.2); Basophils % (A) 1 %; Eosinophils # (A) 0.3 k/uL (0-0.7); Eosinophils % (A) 3 %; HCT 47.8 % (39.0-53.0); HGB 15.8 gm/dL (13.0-17.5); Lymphocytes # (A) 2.2 k/uL (1.0-4.8); Lymphocytes % (A) 21 %; MCH 27.9 pg (25.0-35.0); MCHC 32.9 g/dL (31.0-37.0); MCV 84.8 fL (80.0-100.0); Mean Platelet Volume 8.1; Monocytes # (A) 0.7 k/uL (0-1.0); Monocytes % (A) 6 %; Neutrophils # (A) 7.2 k/uL (1.3-7.7); Neutrophils % (A) 68 %; Platelet Count 334 k/uL (150-450); RBC 5.64 m/uL (4.30-5.90); RDW 13.2 % (11.5-15.5); WBC 10.6 k/uL (3.8-10.6)
[2022-11-10 11:23] LABS: ALT 37 U/L (4-49); AST 23 U/L (17-59); African American GFR (CKD) >90 (>60 ml/min/1.73 sqM); Albumin 4.2 g/dL (3.5-5.0); Alkaline Phosphatase 102 U/L (38-126); Anion Gap 10 mmol/L; Blood Urea Nitrogen 25 mg/dL (9-20); Calcium 9.6 mg/dL (8.4-10.2); Carbon Dioxide 25 mmol/L (22-30); Chloride 106 mmol/L (98-107); Glucose 127 mg/dL (74-99); Magnesium 2.1 mg/dL (1.6-2.3); Non-African American GFR(CKD) >90 (>60 ml/min/1.73 sqM); Partial Thromboplastin Time 23.6 sec (22.0-30.0); Potassium 4.6 mmol/L (3.5-5.1); Prothrombin Time 10.3 sec (9.0-12.0); Sodium 141 mmol/L (137-145); Total Bilirubin 0.4 mg/dL (0.2-1.3); Total Protein 7.4 g/dL (6.3-8.2)
--- NOTE | 2022-11-10 11:40 | XR ---
EXAMINATION TYPE: XR chest 2V DATE OF EXAM: 11/10/2022 11:12 AM COMPARISON: Chest radiographs from 08/30/2021 TECHNIQUE: XR chest 2V Frontal and lateral views of the chest. CLINICAL INDICATION:Male, 42 years old with history of Chest Pain; FINDINGS: Lungs/Pleura: There is no evidence of pleural effusion, focal consolidation, or pneumothorax. Pulmonary vascularity: Unremarkable. Heart/mediastinum: Cardiomediastinal silhouette is unremarkable. Musculoskeletal: No acute osseous pathology. Other findings: None Lines/Tubes: Ventriculoperitoneal shunt tubing noted along the right aspect of the radiograph. IMPRESSION: No acute cardiopulmonary disease/process.
[2022-11-10] MEDS ORDERED: NITROGLYCERIN SL TABS 0.4 MG TAB SUBLINGUAL PRN (12:58)
--- NOTE | 2022-11-10 14:09 | P.HPIM ---
History of Present Illness H&P Date: 11/10/22 History of present illness; patient is a 42-year-old gentleman with past medical history significant for hyperlipidemia,inferior wall ST elevation AR with stenting to the RCA who presented to The ER because of chest pressure that started this morning. Patient stated that he was all right this morning when while driving on his way to the [place] he started noticing chest pressure that was central in location, radiating down his left arm. Patient denied any shortness of breath at that time. There was no complain of palpitation. Denied any orthopnea or PND. There Was no complain of swelling of feet. Because of this persistent chest pressure he came to the ER, where he was given some nitro and the chest pain resolved Initial lab work done showed white count 10.6, hemoglobin 15.8, platelet count 334, sodium 141, potassium 4.6, chloride 106, BUN 25, creatinine 1, troponin 0.012 Chest x-ray done showed no acute cardiopulmonary process EKG done did not show any acute ST segment changes, there was some T-wave inversion in leads 3 and aVF Patient was admitted to internal medicine service for further evaluation and treatment REVIEW OF SYSTEMS: CONSTITUTIONAL: No fever, no malaise, no fatigue. HEENT: No recent visual problems or hearing problems. Denied any sore throat. CARDIOVASCULAR: As mentioned in HPI PULMONARY: No shortness of breath, no cough, no hemoptysis. GASTROINTESTINAL: No diarrhea, no nausea, no vomiting, no abdominal pain. NEUROLOGICAL: No headaches, no weakness, no numbness. HEMATOLOGICAL: Denies any bleeding or petechiae. GENITOURINARY: Denies any burning micturition, frequency, or urgency. MUSCULOSKELETAL/RHEUMATOLOGICAL: Denies any joint pain, swelling, or any muscle pain. ENDOCRINE: Denies any polyuria or polydipsia. The rest of the 14-point review of systems is negative. PHYSICAL EXAMINATION: GENERAL: The patient is alert and oriented x3, not in any acute distress. Well developed, well nourished. HEENT: Pupils are round and equally reacting to light. EOMI. No scleral icterus. No conjunctival pallor. Normocephalic, atraumatic. No pharyngeal erythema. No thyromegaly. CARDIOVASCULAR: S1 and S2 present. No murmurs, rubs, or gallops. PULMONARY: Chest is clear to auscultation, no wheezing or crackles. ABDOMEN: Soft, nontender, nondistended, normoactive bowel sounds. No palpable organomegaly. MUSCULOSKELETAL: No joint swelling or deformity. EXTREMITIES: No cyanosis, clubbing, or pedal edema. NEUROLOGICAL: Gross neurological examination did not reveal any focal deficits. SKIN: No rashes. Assessment and plan Chest pain Hyperlipidemia Obesity History of recent coronary artery disease with stent to the RCA in October of this year -Congenital hydrocephalus with the stent placed in 1995 -Anxiety/Depression -Former Smoker Plan; Monitor vital signs Monitor CBC Monitor CMP Telemetry monitoring Trend troponins Resume home meds Consult cardiology 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, vasectomy November 2018 Past Anesthesia/Blood Transfusion Reactions: No Reported Reaction Date of Last Stent Placement:: 10/27 Smoking Status: Former smoker - Past Family History Father Family Medical History: Cancer, Chest Pain / Angina, Coronary Artery Disease (CAD), Hyperlipidemia, Hypertension Additional Family Medical History / Comment(s): from colon cancer Mother Family Medical History: Coronary Artery Disease (CAD), Diabetes Mellitus, Hyperlipidemia, Hypertension Medications and Allergies Home Medications Medication Instructions Recorded Confirmed Type Aspirin 81 mg PO DAILY #30 tab 10/27/22 Rx Atorvastatin [Lipitor] 80 mg PO HS #30 tab 10/27/22 Rx Metoprolol Tartrate [Lopressor] 25 mg PO BID #60 tab 10/27/22 Rx Nitroglycerin Sl Tabs [Nitrostat] 0.4 mg SUBLINGUAL Q5M PRN #20 tab 10/27/22 Rx Prasugrel [Effient] 10 mg PO DAILY #30 tab 10/27/22 Rx lisinopriL [Zestril] 5 mg PO HS #30 tab 10/27/22 Rx Allergies Allergy/AdvReac Type Severity Reaction Status Date / Time No Known Allergies Allergy Verified 11/10/22 10:34 Physical Exam Vitals: Vital Signs Temp Pulse Resp BP Pulse Ox 11/10/22 13:00 72 18 152/78 98 11/10/22 11:35 139/81 11/10/22 10:32 98 F 77 18 163/101 100 Intake and Output 11/09/22 11/10/22 11/10/22 22:59 06:59 14:59 Other: Weight 114.759 kg Results CBC & Chem 7: 11/10/22 10:53 11/10/22 10:53 Labs: Abnormal Lab Results - Last 24 Hours (Table) 11/10/22 Range/Units 10:53 BUN 25 H (9-20) mg/dL Glucose 127 H (74-99) mg/dL Thrombosis Risk Factor Assmnt - Choose All That Apply Any of the Below Risk Factors Present?: Yes Each Factor Represents 1 point: Age 41-60 years Other Risk Factors: No Thrombosis Risk Factor Assessment Total Risk Factor Score: 1 Thrombosis Risk Factor Assessment Level: Low Risk
[2022-11-10] MEDS: NITROGLYCERIN OINT 1 INCH/GM PACKET TOPICAL SCH (19:56)
[2022-11-11] MEDS: NITROGLYCERIN OINT 1 INCH/GM PACKET TOPICAL SCH ×2 (01:51→04:59)
[2022-11-11 07:17] VITALS: RESP 18
[2022-11-11] MEDS ORDERED: PRASUGREL 10 MG TAB PO SCH (09:00)
[2022-11-11] MEDS ORDERED: lisinopriL 10 MG TAB PO SCH (09:00)
[2022-11-11] MEDS ORDERED: ASPIRIN 81 MG PO SCH (09:00)
[2022-11-11] MEDS ORDERED: METOPROLOL TARTRATE 25 MG TAB PO SCH (09:00)
[2022-11-11] MEDS ORDERED: ASPIRIN 325 MG TAB PO SCH (09:00)
[2022-11-11 09:19] LABS: Chol/HDL Ratio 4.49 Ratio; LDL Cholesterol,Calculated 64.6 mg/dL (0.0-131.0)
--- NOTE | 2022-11-11 10:28 | P.CRDCN ---
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 Patient follows in the office with Dr. Falcon. We have been asked to see the patient in consultation for chest pain. Patient examined at the bedside. Patient was admitted to the hospital in October 2022 and was found to have an acute inferior wall myocardial infarction. He underwent cardiac catheterization with stenting to the mid RCA. He was discharged home in stable condition. Patient states he has had 2 episodes of chest pain since having his stenting performed last month. He states both of these episodes have been when he was driving a car. He states yesterday he began to have chest heaviness when he was driving home from [employer]. He also reports he had heaviness in his left arm. He thought he was having a panic attack although he did not feel very anxious at the time. He states he did not take any nitro. His family urged him to come to the hospital for further ev aluation. At the time of examination this morning, the patient denies any further episodes of chest pain or pressure. He denies shortness of breath. Vital signs are stable. His blood pressure is slightly on the higher side with systolics ranging between [id number]. * EKG reveals sinus mechanism with no signs of acute ischemia * Chest xray negative for acute process * Laboratory data: WBC 10.6. Hemoglobin 15.8. Platelet count 334. Sodium 141. Potassium 4.6. BUN 25. Creatinine 1.0. Magnesium 2.1. Troponin negative 3. * Current home cardiac medications include lisinopril 5 mg at night, Effient 10 mg daily, metoprolol tartrate 25 mg twice a day, atorvastatin 80 mg at night, and aspirin 81 mg daily * Most recent echocardiogram obtained in October 2022 revealed ejection fraction 55-60%, mild TR, trace to mild MR. * Cardiac catheterization history: October 2022 with stenting to the mid RCA REVIEW OF SYSTEMS: At the time of my exam: CONSTITUTIONAL: Denies fever or chills. HEENT: Denies blurred vision, vision changes, or eye pain. Denies hemoptysis CARDIOVASCULAR: Denies chest pain. Denies orthopnea. Denies PND. Denies palpitations RESPIRATORY: Denies shortness of breath. GASTROINTESTINAL: Denies abdominal pain. Denies nausea or vomiting. HEMATOLOGIC: Denies bleeding disorders. GENITOURINARY: Denies any blood in urine. SKIN: Denies pruitis. Denies rash. PHYSICAL EXAM: VITAL SIGNS: Reviewed. GENERAL: Well-developed in no acute distress. HEENT: Head is normocephalic. Pupils are equal, round. Sclerae anicteric. Mucous membranes of the mouth are moist. Neck supple. No JVD or thyromegaly LUNGS: Respirations even and unlabored. Lungs essentially clear to auscultation bilaterally. HEART: Regular rate and rhythm. S1 and S2 heard. ABDOMEN: Soft. Nondistended. Nontender. EXTREMITIES: Normal range of motion. No clubbing or cyanosis. Peripheral pulses intact. No lower extremity edema NEUROLOGIC: Awake and alert. Oriented x 3. ASSESSMENT: Chest pain, troponins negative 3 Coronary artery disease with recent stenting to the mid RCA Hypertension Hyperlipidemia Former nicotine dependence History of VENDOR MANAGER shunt PLAN: An acute coronary event has been ruled out Resume home cardiac medications Patient to undergo stress echocardiogram today If negative, he may be discharged home and follow-up in the office with Dr. Falcon Nurse practitioner note has been reviewed by physician. Signing provider agrees with the documented findings, assessment, and plan of care. 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, vasectomy November 2018 Past Anesthesia/Blood Transfusion Reactions: No Reported Reaction Date of Last Stent Placement:: 10/27 Smoking Status: Former smoker - Past Family History Father Family Medical History: Cancer, Chest Pain / Angina, Coronary Artery Disease (CAD), Hyperlipidemia, Hypertension Additional Family Medical History / Comment(s): from colon cancer Mother Family Medical History: Coronary Artery Disease (CAD), Diabetes Mellitus, Hyperlipidemia, Hypertension Medications and Allergies Home Medications Medication Instructions Recorded Confirmed Type Aspirin 81 mg PO DAILY #30 tab 10/27/22 11/10/22 Rx Atorvastatin [Lipitor] 80 mg PO HS #30 tab 10/27/22 11/10/22 Rx Metoprolol Tartrate [Lopressor] 25 mg PO BID #60 tab 10/27/22 11/10/22 Rx Prasugrel [Effient] 10 mg PO DAILY #30 tab 10/27/22 11/10/22 Rx lisinopriL [Zestril] 5 mg PO HS #30 tab 10/27/22 11/10/22 Rx Nitroglycerin Sl Tabs [Nitrostat] 0.4 mg SL Q5M PRN 11/10/22 11/10/22 History Allergies Allergy/AdvReac Type Severity Reaction Status Date / Time No Known Allergies Allergy Verified 11/10/22 14:35 Physical Exam Vitals: Vital Signs Temp Pulse Pulse Pulse Resp BP BP 11/11/22 07:00 98 F 79 18 147/83 11/11/22 03:05 97.9 F 82 16 123/72 11/10/22 19:16 97.9 F 89 17 155/89 11/10/22 14:32 97.7 F 73 18 145/83 11/10/22 13:00 72 18 152/78 11/10/22 11:35 139/81 11/10/22 10:32 98 F 77 18 163/101 Pulse Ox 11/11/22 07:00 97 11/11/22 03:05 98 11/10/22 19:16 96 11/10/22 14:32 97 11/10/22 13:00 98 11/10/22 11:35 11/10/22 10:32 100 Intake and Output 11/10/22 11/11/22 11/11/22 22:59 06:59 14:59 Intake Total 240 Balance 240 Intake: Oral 240 Other: # Voids 1 1 Results 11/10/22 10:53 11/10/22 10:53 Cardiac Enzymes 11/10/22 11/10/22 11/10/22 Range/Units 10:53 10:53 13:06 AST 23 (17-59) U/L Troponin I <0.012 <0.012 (0.000-0.034) ng/mL 11/10/22 Range/Units 15:15 AST (17-59) U/L Troponin I <0.012 (0.000-0.034) ng/mL Coagulation 11/10/22 Range/Units 10:53 PT 10.3 (9.0-12.0) sec APTT 23.6 (22.0-30.0) sec Lipids 11/11/22 Range/Units 03:44 Triglycerides 225.00 H (0.00-149.00) mg/dL Cholesterol 141.00 (0.00-200.00) mg/dL HDL Cholesterol 31.40 L (40.00-60.00) mg/dL Cholesterol/HDL Ratio 4.49 Ratio CBC 11/10/22 Range/Units 10:53 WBC 10.6 (3.8-10.6) k/uL RBC 5.64 (4.30-5.90) m/uL Hgb 15.8 (13.0-17.5) gm/dL Hct 47.8 (39.0-53.0) % Plt Count 334 (150-450) k/uL Comprehensive Metabolic Panel 11/10/22 Range/Units 10:53 Sodium 141 (137-145) mmol/L Potassium 4.6 (3.5-5.1) mmol/L Chloride 106 (98-107) mmol/L Carbon Dioxide 25 (22-30) mmol/L BUN 25 H (9-20) mg/dL Creatinine 1.00 (0.66-1.25) mg/dL Glucose 127 H (74-99) mg/dL Calcium 9.6 (8.4-10.2) mg/dL AST 23 (17-59) U/L ALT 37 (4-49) U/L Alkaline Phosphatase 102 (38-126) U/L Total Protein 7.4 (6.3-8.2) g/dL Albumin 4.2 (3.5-5.0) g/dL Current Medications Generic Name Dose Route Start Last Admin Trade Name Freq PRN Reason Stop Dose Admin Aspirin 81 mg 11/11/22 09:00 11/11/22 09:07 Aspirin 81 Mg PO 81 mg DAILY JOSEPH Administration Atorvastatin Calcium 80 mg 11/11/22 21:00 Atorvastatin 80 Mg Tab PO HS JOSEPH Lisinopril 10 mg 11/11/22 09:00 11/11/22 09:06 Lisinopril 10 Mg Tab PO 10 mg DAILY JOSEPH Administration Metoprolol Tartrate 25 mg 11/11/22 09:00 Metoprolol Tartrate 25 Mg Tab PO BID JOSEPH Nitroglycerin 0.4 mg 11/10/22 12:58 Nitroglycerin Sl Tabs 0.4 Mg Tab SUBLINGUAL Q5M PRN Chest Pain Prasugrel 10 mg 11/11/22 09:00 11/11/22 09:06 Prasugrel 10 Mg Tab PO 10 mg DAILY JOSEPH Administration Intake and Output 11/10/22 11/11/22 11/11/22 22:59 06:59 14:59 Intake Total 240 Balance 240 Intake: Oral 240 Other: # Voids 1 1 11/10/22 10:53 11/10/22 10:53
--- NOTE | 2022-11-11 13:02 | P.DS ---
Providers Date of admission: 11/10/22 12:58 Expected date of discharge: 11/11/22 Attending physician: Hira Anne MD Consults: 11/10/22 12:58 Consult Physician Urgent Consulting Provider: [facility] Consult Reason/Comments: Chest pain Do you want consulting provider notified?: Yes Primary care physician: Abdon [facility] Course: Discharge diagnoses; Chest pain, troponins negative 3 Coronary artery disease with recent stenting to the mid RCA Hypertension Hyperlipidemia Former nicotine dependence History of VAMP STRAP IRONER shunt Hospital course; patient is a 42-year-old gentleman with past medical history significant for hyperlipidemia,inferior wall ST elevation [place] with stenting to the RCA who presented to The ER because of chest pressure that started this morning. Patient stated that he was all right this morning when while driving [place] way [place] he started noticing chest pressure that was central in location, radiating down his left arm. Patient denied any shortness of breath at that time. There was no complain of palpitation. Denied any orthopnea or PND. There Was no complain of swelling of feet. Because of this persistent chest pressure he came to the ER, where he was given some nitro and the chest pain resolved Initial lab work done showed white count 10.6, hemoglobin 15.8, platelet count 334, sodium 141, potassium 4.6, chloride 106, BUN 25, creatinine 1, troponin 0.012 Chest x-ray done showed no acute cardiopulmonary process EKG done did not show any acute ST segment changes, there was some T-wave inversion in leads 3 and aVF Patient was admitted to internal medicine service for further evaluation and treatment 11/11. Cardiology evaluated the patient, order stress echocardiogram. If negative patient can be discharged to follow-up, Patient to follow-up outpatient with cardiology PHYSICAL EXAMINATION: GENERAL: The patient is alert and oriented x3, not in any acute distress. Well developed, well nourished. HEENT: Pupils are round and equally reacting to light. EOMI. No scleral icterus. No conjunctival pallor. Normocephalic, atraumatic. No pharyngeal erythema. No thyromegaly. CARDIOVASCULAR: S1 and S2 present. No murmurs, rubs, or gallops. PULMONARY: Chest is clear to auscultation, no wheezing or crackles. ABDOMEN: Soft, nontender, nondistended, normoactive bowel sounds. No palpable organomegaly. MUSCULOSKELETAL: No joint swelling or deformity. EXTREMITIES: No cyanosis, clubbing, or pedal edema. NEUROLOGICAL: Gross neurological examination did not reveal any focal deficits. SKIN: No rashes. Patient Condition at Discharge: Good Plan - Discharge Summary Discharge Rx Participant: Yes New Discharge Prescriptions: New lisinopriL [Zestril] 10 mg PO DAILY #30 tab Continue Atorvastatin [Lipitor] 80 mg PO HS #30 tab Metoprolol Tartrate [Lopressor] 25 mg PO BID #60 tab Nitroglycerin Sl Tabs [Nitrostat] 0.4 mg SL Q5M PRN PRN Reason: Chest Pain Aspirin 81 mg PO DAILY #30 tab Prasugrel [Effient] 10 mg PO DAILY #30 tab Discontinued lisinopriL [Zestril] 5 mg PO HS #30 tab Discharge Medication List Aspirin 81 mg PO DAILY #30 tab 10/27/22 [Rx] Atorvastatin [Lipitor] 80 mg PO HS #30 tab 10/27/22 [Rx] Metoprolol Tartrate [Lopressor] 25 mg PO BID #60 tab 10/27/22 [Rx] Prasugrel [Effient] 10 mg PO DAILY #30 tab 10/27/22 [Rx] Nitroglycerin Sl Tabs [Nitrostat] 0.4 mg SL Q5M PRN 11/10/22 [History] lisinopriL [Zestril] 10 mg PO DAILY #30 tab 11/11/22 [Rx] Follow up Appointment(s)/Referral(s): Abdon Montes De Oca DO [Primary Care Provider] - 1-2 days Kenton Falcon MD [STAFF PHYSICIAN] - 11/18/22 3:30 pm Discharge Disposition: HOME SELF-CARE
[2022-11-11 14:24] VITALS: BP 129/80; PULSE 84; TEMP 97.8
[2022-11-11] MEDS ORDERED: ATORVASTATIN 80 MG TAB PO SCH (21:00)
[2022-11-11] MEDS ORDERED: lisinopriL 5 MG TAB PO SCH (21:00)
--- NOTE | 2022-11-12 09:04 | CA ---
Stress Echo Report Ford Garcia Age: 42 Gender: M : 1980 Exam Date: 11/11/2022 11:06 Exam Location: [place] Echo Ht (in): 66 Wt (lb): 253 Ordering Physician: Cici Mendenhall Referring Physician: [id number] Restorer: JOHNSON Technologist Procedure CPT: Indication: CP ICD-9 Codes: Rhythm: Patient History: CHEST PAIN, PALPITATIONS, ANGINA, HTN, ELEVATED CHOLESTEROL LEVELS, FAMILY HX OF HEART DISEASE, PRIOR TX, PRIOR CATH WITH STENTING, PRIOR SMOKER (QUIT 20 YEARS) Cardiac Medications: Medications in past 24 hours: Contrast: Lumason Stress Results Protocol: Roscoe Total dose(mL): Exercise Duration (min:sec): Max ST Depression (mm): Angina Score: Jarrett Score: METS: 8.3 Resting HR: 95 Resting BP: 140 / 85 Peak HR: 162 Peak BP: 140 / 85 Max Predicted HR: 178 91 % Max Predicted HR Target HR: 151 Double Product: [id number] Stress Summary: BP Response: Reason for Termination: MAX EXERTION/TARGET HR Cardiac Symptoms: NO SYMPTOMS ECG Analysis Resting ECG: Stress ECG: Arrhythmia: Echo Analysis Resting Echo: Peak Echo Analysis: MEASUREMENTS (Male/Female) Normal Values CONCLUSIONS Patient underwent exercise stress echo with a Roscoe protocol treadmill stress test. Patient exercised into Stage 3 for a total of 7 minutes reaching a total of 8.3 METS. Patient's maximum heart rate was 162 which represented 91 % age-predicted maximum heart rate. Stress EKG portion: At baseline patient's EKG showed sinus rhythm, normal axis, no significant ST or T wave abnormalities. At peak exercise, EKG showed no significant change from baseline. Stress echo portion: 2-D echocardiogram was performed in the parasternal long, personal short, apical 2 and apical four-chamber views at rest, peak exercise and in recovery. At baseline, echocardiogram showed left ventricular ejection fraction 55% without wall motion abnormalities. With peak exercise, echocardiogram shows improvement in left ventricular ejection fraction, increase contractility, decrease in left ventricular end systolic dimension without wall motion abnormalities consistent with a normal response to exercise. Conclusions: 1. Normal EKG and echo response to exercise without evidence of inducible ischemia. 2. Good exercise capacity. Dr. Luis M Mcclure DO (Electronically Signed) Final Date: 12 Nov 2022 09:03
== END 2022-11-11 17:26 | disposition home or self-care (01) ==
LOC: EC 10:29 → 6NMEDSUR 12:58 → INTOOBSV 12:58 → 6NMEDSUR 13:06
PROVIDERS: ADMIT Internal Medicine; ATTEND Internal Medicine
DX: R07.89 Other chest pain (principal); I25.10 Atherosclerotic heart disease of native coronary artery without angina pectoris; Z95.5 Presence of coronary angioplasty implant and graft; I10 Essential (primary) hypertension; E78.5 Hyperlipidemia, unspecified; Z87.891 Personal history of nicotine dependence; Q03.9 Congenital hydrocephalus, unspecified; F41.9 Anxiety disorder, unspecified; F32.A Depression, unspecified; I25.2 Old myocardial infarction; Z98.52 Vasectomy status; Z98.2 Presence of cerebrospinal fluid drainage device; Z82.49 Family history of ischemic heart disease and other diseases of the circulatory system; Z80.0 Family history of malignant neoplasm of digestive organs; Z83.3 Family history of diabetes mellitus; Z83.438 Family history of other disorder of lipoprotein metabolism and other lipidemia; Z79.82 Long term (current) use of aspirin; Z79.899 Other long term (current) drug therapy
CPT/HCPCS: 99285; 36415; 93005; 80061; 80053; 83735; 84484; 85025; 85610; 85730; 71046; G0378 ×2; C8930; Q9950; 93351

== ENCOUNTER 2022-12-21 17:09 | Emergency (ER) | payer OTHER ==
--- NOTE | 2022-12-21 17:13 | ED ---
General Adult HPI - General Stated complaint: Anaphylaxis-neck pain Time Seen by Provider: 12/21/22 17:13 Source: RN notes reviewed - History of Present Illness Initial comments: 42-year-old male presents to the emergency department from urgent care with a chief complaint of possible ALLERGIC reaction. Patient reports that he has had neck pain for 2 days and then noticed the rash that has been all over his upper extremities and back and torso that started today. He denies any new lotions detergents or soaps. He is unsure any new allergen exposures. Nobody else in the household has the rash. He reports he took 2 Benadryl prior to arrival. He denies any shortness of breath, dyspnea, cough. - Related Data Home Medications Medication Instructions Recorded Confirmed Nitroglycerin Sl Tabs [Nitrostat] 0.4 mg SL Q5M PRN 11/10/22 11/10/22 Previous Rx's Medication Instructions Recorded Aspirin 81 mg PO DAILY #30 tab 10/27/22 Atorvastatin [Lipitor] 80 mg PO HS #30 tab 10/27/22 Metoprolol Tartrate [Lopressor] 25 mg PO BID #60 tab 10/27/22 Prasugrel [Effient] 10 mg PO DAILY #30 tab 10/27/22 lisinopriL [Zestril] 10 mg PO DAILY #30 tab 11/11/22 predniSONE 50 mg PO DAILY #5 tab 12/21/22 Allergies Allergy/AdvReac Type Severity Reaction Status Date / Time No Known Allergies Allergy Verified 11/10/22 14:35 Review of Systems ROS Statement: Those systems with pertinent positive or pertinent negative responses have been documented in the HPI. ROS Other: All systems not noted in ROS Statement are negative. Past Medical History Past Medical History: Hyperlipidemia Additional Past Medical History / Comment(s): hydrocephalis History of Any Multi-Drug Resistant Organisms: None Reported Past Surgical History: Heart Catheterization With Stent Additional Past Surgical History / Comment(s): vp securities shunt, vasectomy November 2018 Past Anesthesia/Blood Transfusion Reactions: No Reported Reaction Date of Last Stent Placement:: 10/27 Smoking Status: Former smoker - Past Family History Father Family Medical History: Cancer, Chest Pain / Angina, Coronary Artery Disease (CAD), Hyperlipidemia, Hypertension Additional Family Medical History / Comment(s): from colon cancer Mother Family Medical History: Coronary Artery Disease (CAD), Diabetes Mellitus, Hyperlipidemia, Hypertension General Exam - General Exam Comments Initial Comments: Visual Physical Exam Vital signs reviewed General: Well-appearing, nontoxic, no acute distress. Head: Normocephalic, atraumatic Eyes: PERRLA, EOMI ENT: Airway patent Chest: Nonlabored breathing Skin: No visual rash, normal skin tone Neuro: Alert and oriented 3 Musculoskeletal: No gross abnormalities General: Alert, in no acute distress Head: atraumatic normocephalic. Eyes PERRL, EOMI intact, mucous membranes moist Respiratory: Lungs clear to auscultation bilaterally Cardiovascular: Heart rate regular rate and rhythm Abdominal: Soft without guarding or rebound Extremities: Normal inspection with full range of motion and normal capillary refill Neuroogic: alert and oriented 3, CN II-XII intact, able to ambulate with steady gait Skin: warm dry and intact with normal color Course Vital Signs 12/21/22 17:12 Temperature 98 F Pulse Rate 90 Respiratory 20 Rate Blood Pressure 143/91 O2 Sat by Pulse 98 Oximetry Medical Decision Making - Medical Decision Making Was pt. sent in by a medical professional or institution (, PA, FIG WASHER, urgent care, hospital, or long term...) When possible be specific @ -[No] Did you speak to anyone other than the patient for history (EMS, parent, family, police, friend...)? What history was obtained from this source @ -[No] Did you review nursing and triage notes (agree or disagree)? Why? @ -[I reviewed and agree with nursing and triage notes] Were old charts reviewed (outside hosp., previous admission, EMS record, old EKG, old radiological studies, urgent care reports/EKG's, long term records)? Report findings @ -[No old charts were reviewed] Differential Diagnosis (chest pain, altered mental status, abdominal pain women, abdominal pain men, vaginal bleeding, weakness, fever, dyspnea, syncope, headache, dizziness, GI bleed, back pain, seizure, CVA, palpatations, mental health, musculoskeletal)? @ -[not applicable] EKG interpreted by me (3pts min.). @ -[As above] X-rays interpreted by me (1pt min.). @ -[None done] CT interpreted by me (1pt min.). @ -[None done] U/S interpreted by me (1pt. min.). @ -[None done] What testing was considered but not performed or refused? (CT, X-rays, U/S, arthur mccain)? Why? @ -[None] What meds were considered but not given or refused? Why? @ -[None] Did you discuss the management of the patient with other professionals (professionals i.e. Dr., PA, FIG WASHER, lab, RT, psych nurse, certified social workers in health care, mortgage processor, teacher, disability liaison officer, case therapist)? Give summary @ -[No] Was smoking cessation discussed for >3mins.? @ -[No] Was critical care preformed (if so, how long)? @ -[No] Were there social determinants of health that impacted care today? How? (Homelessness, low income, unemployed, alcoholism, drug addiction, transportation, low edu. Level, literacy, decrease access to med. care, retirement, rehab)? @ -[No] Was there de-escalation of care discussed even if they declined (Discuss DNR or withdrawal of care, Hospice)? DNR status @ -[No] What co-morbidities impacted this encounter? (DM, HTN, Smoking, COPD, CAD, Cancer, CVA, ARF, Chemo, Hep., AIDS, mental health diagnosis, sleep apnea, morbid obesity)? @ -[None] Was patient admitted / discharged? Hospital course, mention meds given and route, prescriptions, significant lab abnormalities, going to OR and other pe rtinent info. @ -Discharged. This is a 42-year-old male presents to the emergency department with possible ALLERGIC reaction. Patient had a thorough history and physical exam performed while in the ED. Physical exam reveals diffuse hives to bilateral upper extremities and torso. Patient was given Solu-Medrol and Benadryl and Pepcid with symptomatic relief on the ED. Return precautions were discussed at length. Patient discharged in stable condition. Case discussed with LENIN Cruz who agrees with plan of care Undiagnosed new problem with uncertain prognosis? @ -[No] Drug Therapy requiring intensive monitoring for toxicity (Heparin, Nitro, Insulin, Cardizem)? @ -[No] Were any procedures done? @ -[No] Diagnosis/symptom? @ -allergic reaction Acute, or Chronic, or Acute on Chronic? @ -acute Uncomplicated (without systemic symptoms) or Complicated (systemic symptoms)? @ -uncomplicated Side effects of treatment? @ -[No] Exacerbation, Progression, or Severe Exacerbation? @ -[No] Poses a threat to life or bodily function? How? (Chest pain, USA, HI, pneumonia, PE, COPD, DKA, ARF, appy, cholecystitis, CVA, Diverticulitis, Homicidal, Suicidal, threat to staff... and all critical care pts) @ -low likelihood Disposition Clinical Impression: Hives, Allergic reaction Disposition: HOME SELF-CARE Condition: Stable Additional Instructions: These return to the nearest emergency department if symptoms worsen or persist Prescriptions: predniSONE 50 mg PO DAILY #5 tab Is patient prescribed a controlled substance at d/c from ED?: No Referrals: Abdon Montes De Oca DO [Primary Care Provider] - 1-2 days Time of Disposition: 21:03
[2022-12-21 17:21] VITALS: BP 143/91; PULSE 90; RESP 20; TEMP 98
[2022-12-21] MEDS ORDERED: FAMOTIDINE 20 MG/2 ML VIAL IV STA (19:39)
[2022-12-21] MEDS ORDERED: methylPREDNISolone SOD SUCCI 125 MG/2 ML VIAL IV STA (19:39)
[2022-12-21] MEDS ORDERED: diphenhydrAMINE 50 MG/ML 1 ML VIAL IVP STA (19:39)
== END 2022-12-21 21:39 | disposition home or self-care (01) ==
LOC: EC 17:09
DX: L50.0 Allergic urticaria (principal); Z87.891 Personal history of nicotine dependence
CPT/HCPCS: 99282; 96374; 96375 ×2; J1200; J2930

== ENCOUNTER 2023-05-10 13:54 | Emergency (ER) | payer OTHER ==
[2023-05-10] MEDS ORDERED: ASPIRIN 81 MG PO STA (14:10)
[2023-05-10 14:23] VITALS: RESP 18; TEMP 98.7
[2023-05-10 14:26] LABS: Basophils % (A) 0 %; Eosinophils # (A) 0.1 k/uL (0-0.7); Eosinophils % (A) 1 %; HGB 15.5 gm/dL (13.0-17.5); Lymphocytes # (A) 1.7 k/uL (1.0-4.8); Lymphocytes % (A) 15 %; MCH 29.2 pg (25.0-35.0); MCHC 34.5 g/dL (31.0-37.0); MCV 84.8 fL (80.0-100.0); Mean Platelet Volume 7.9; Monocytes # (A) 0.6 k/uL (0-1.0); Monocytes % (A) 5 %; Neutrophils # (A) 8.8 k/uL (1.3-7.7); Neutrophils % (A) 77 %; Platelet Count 309 k/uL (150-450); RBC 5.31 m/uL (4.30-5.90); WBC 11.3 k/uL (3.8-10.6)
[2023-05-10 14:44] LABS: INR 0.9 (<1.2); Partial Thromboplastin Time 23.6 sec (22.0-30.0); Prothrombin Time 10.5 sec (10.0-12.5)
--- NOTE | 2023-05-10 14:54 | XR ---
EXAMINATION TYPE: XR chest 2V DATE OF EXAM: 05/10/2023 COMPARISON: 11/10/2022 HISTORY: Chest pain TECHNIQUE: Frontal and lateral views of the chest are obtained. FINDINGS: The lungs are clear of consolidative, interstitial or masslike opacity. There is no pleural effusion, pleural thickening or pneumothorax. The heart vasculature, mediastinum and hilum appear normal. The osseous structures are intact. Again noted is a ventriculoperitoneal shunt. IMPRESSION: No acute cardiopulmonary disease and no interval change.
[2023-05-10 15:10] LABS: ALT 33 U/L (4-49); AST 23 U/L (17-59); African American GFR (CKD) >90 (>60 ml/min/1.73 sqM); Albumin 4.2 g/dL (3.5-5.0); Alkaline Phosphatase 110 U/L (38-126); Anion Gap 12 mmol/L; Blood Urea Nitrogen 17 mg/dL (9-20); Calcium 9.9 mg/dL (8.4-10.2); Carbon Dioxide 21 mmol/L (22-30); Chloride 107 mmol/L (98-107); Glucose 140 mg/dL (74-99); Magnesium 1.9 mg/dL (1.6-2.3); Non-African American GFR(CKD) >90 (>60 ml/min/1.73 sqM); Potassium 4.1 mmol/L (3.5-5.1); Sodium 140 mmol/L (137-145); Total Bilirubin 0.5 mg/dL (0.2-1.3); Total Protein 7.3 g/dL (6.3-8.2)
[2023-05-10 15:18] LABS: NT-Pro-B-Type Natriuretic Pept 114 pg/mL
--- NOTE | 2023-05-10 15:34 | ED ---
Chest Pain HPI - General Chief Complaint: Chest Pain Stated Complaint: chest pain Time Seen by Provider: 05/10/23 14:06 Source: patient, EMS, RN notes reviewed Mode of arrival: EMS Limitations: no limitations - History of Present Illness Initial Comments: 42-year-old male presents emergency Department with chief complaint of chest pain, chest heaviness. Patient states that symptoms started when he was driving to work he states touches mother's house and states that he felt very anxious, worked up and felt heaviness in his chest. He states he took nitro and he wasn't feeling good so his mother called EMS. Upon EMS arrival symptoms were improving. Patient states he did have a panic attack in which she believes this may be causing his symptoms. He states he was seen by psychiatrist and recent diagnosis of anxiety, major depressive disorder. Patient is scheduled see a therapist. He states he has his symptoms every time he drives to work. - Related Data Home Medications Medication Instructions Recorded Confirmed Nitroglycerin Sl Tabs [Nitrostat] 0.4 mg SL Q5M PRN 11/10/22 11/10/22 Previous Rx's Medication Instructions Recorded Aspirin 81 mg PO DAILY #30 tab 10/27/22 Atorvastatin [Lipitor] 80 mg PO HS #30 tab 10/27/22 Metoprolol Tartrate [Lopressor] 25 mg PO BID #60 tab 10/27/22 Prasugrel [Effient] 10 mg PO DAILY #30 tab 10/27/22 lisinopriL [Zestril] 10 mg PO DAILY #30 tab 11/11/22 predniSONE 50 mg PO DAILY #5 tab 12/21/22 Allergies Allergy/AdvReac Type Severity Reaction Status Date / Time CONOR Inhibitors Allergy Rash/Hives Verified 05/10/23 14:03 Review of Systems ROS Statement: Those systems with pertinent positive or pertinent negative responses have been documented in the HPI. ROS Other: All systems not noted in ROS Statement are negative. EKG Findings - EKG Comments: EKG Findings:: EKG performed at 14-year-old 03 sinus rhythm rate of 176 UT 96 QT/QTC 369/407 - EKG Results: EKG: interpreted by SVITLANA Past Medical History Past Medical History: Hyperlipidemia, Hypertension Additional Past Medical History / Comment(s): hydrocephalis History of Any Multi-Drug Resistant Organisms: None Reported Past Surgical History: Heart Catheterization With Stent Additional Past Surgical History / Comment(s): vp revenue cycle shunt, vasectomy November 2018 Past Anesthesia/Blood Transfusion Reactions: No Reported Reaction Date of Last Stent Placement:: 10/27 Past Psychological History: Anxiety, Depression Smoking Status: Former smoker Past Alcohol Use History: None Reported Past Drug Use History: Marijuana - Past Family History Father Family Medical History: Cancer, Chest Pain / Angina, Coronary Artery Disease (CAD), Hyperlipidemia, Hypertension Additional Family Medical History / Comment(s): from colon cancer Mother Family Medical History: Coronary Artery Disease (CAD), Diabetes Mellitus, Hyperlipidemia, Hypertension General Exam General appearance: alert, in no apparent distress Head exam: Present: atraumatic, normocephalic, normal inspection Eye exam: Present: normal appearance, PERRL, EOMI. Absent: scleral icterus, conjunctival injection, periorbital swelling ENT exam: Present: normal exam, mucous membranes moist Neck exam: Present: normal inspection, full ROM. Absent: tenderness, meningismus, lymphadenopathy Respiratory exam: Present: normal lung sounds bilaterally. Absent: respiratory distress, wheezes, rales, rhonchi, stridor Cardiovascular Exam: Present: regular rate, normal rhythm, normal heart sounds. Absent: systolic murmur, diastolic murmur, rubs, gallop, clicks GI/Abdominal exam: Present: soft, normal bowel sounds. Absent: distended, tenderness, guarding, rebound, rigid Course Vital Signs 05/10/23 05/10/23 05/10/23 13:56 14:13 16:15 Temperature 98.7 F Pulse Rate 85 87 83 Respiratory 20 18 18 Rate Blood Pressure 164/97 143/89 131/77 O2 Sat by Pulse 99 98 96 Oximetry Chest Pain MDM - MDM Was pt. sent in by a medical professional or institution (, PA, BOAT HOIST OPERATOR HELPER, urgent care, hospital, or skilled nursing...) When possible be specific @ -No Did you speak to anyone other than the patient for history (EMS, parent, family, police, friend...)? What history was obtained from this source @ -EMS providing prehospital care, vitals and treatment Did you review nursing and triage notes (agree or disagree)? Why? @ -I reviewed and agree with nursing and triage notes Were old charts reviewed (outside hosp., previous admission, EMS record, old EKG, old radiological studies, urgent care reports/EKG's, skilled nursing records)? Report findings @ -No old charts were reviewed Differential Diagnosis (chest pain, altered mental status, abdominal pain women, abdominal pain men, vaginal bleeding, weakness, fever, dyspnea, syncope, headache, dizziness, GI bleed, back pain, seizure, CVA, palpatations, mental health, musculoskeletal)? @ -nDifferential Chest Pain: Stable Angina, Unstable Angina, STEMI, NSTEMI Aortic Dissection, Pneumothorax, Musculoskeletal, Esophageal Spasm GERD, Cholecystitis, Pancreatitis, Zoster, this is not meant to be an all-inclusive list. ble EKG interpreted by me (3pts min.). @ -As above X-rays interpreted by me (1pt min.). @ -Chest x-ray shows no acute cardio pulmonary process CT interpreted by me (1pt min.). @ -None done U/S interpreted by me (1pt. min.). @ -None done What testing was considered but not performed or refused? (CT, X-rays, U/S, labs)? Why? @ -None What meds were considered but not given or refused? Why? @ -None Did you discuss the management of the patient with other professionals (professionals i.e. , PA, BOAT HOIST OPERATOR HELPER, lab, RT, psych nurse, social services assistant, hand bobbin cleaner, teacher, chief environmental commitment officer, outpatient case manager)? Give summary @ -No Was smoking cessation discussed for >3mins.? @ -No Was critical care preformed (if so, how long)? @ -No Were there social determinants of health that impacted care today? How? (Homelessness, low income, unemployed, alcoholism, drug addiction, transportation, low edu. Level, literacy, decrease access to med. care, long-term, rehab)? @ -No Was there de-escalation of care discussed even if they declined (Discuss DNR or withdrawal of care, Hospice)? DNR status @ -No What co-morbidities impacted this encounter? (DM, HTN, Smoking, COPD, CAD, Cancer, CVA, ARF, Chemo, Hep., AIDS, mental health diagnosis, sleep apnea, morbid obesity)? @ -CAD Was patient admitted / discharged? Hospital course, mention meds given and route, prescriptions, significant lab abnormalities, going to OR and other pertinent info. @ -Patient offered, recommended admission patient refused stating that he please is just his anxiety and that he does not want to stay in the hospital understand risk he's had no recurrent symptoms. Undiagnosed new problem with uncertain prognosis? @ -No Drug Therapy requiring intensive monitoring for toxicity (Heparin, Nitro, Insulin, Cardizem)? @ -No Were any procedures done? @ -No Diagnosis/symptom? @ -Chest pain, anxiety Acute, or Chronic, or Acute on Chronic? @ -Acute Uncomplicated (without systemic symptoms) or Complicated (systemic symptoms)? @ -complicated Side effects of treatment? @ -No Exacerbation, Progression, or Severe Exacerbation? @ -No Poses a threat to life or bodily function? How? (Chest pain, USA, MS, pneumonia, PE, COPD, DKA, ARF, appy, cholecystitis, CVA, Diverticulitis, Homicidal, Suicidal, threat to staff... and all critical care pts) @ -No Disposition Clinical Impression: Chest pain, Anxiety Disposition: HOME SELF-CARE Condition: Stable Instructions (If sedation given, give patient instructions): Chest Pain (ED) Additional Instructions: Please return to the Emergency Department if symptoms worsen or any other concerns. Is patient prescribed a controlled substance at d/c from ED?: No Referrals: Abdon Montes De Oca DO [Primary Care Provider] - 1-2 days Time of Disposition: 16:51
[2023-05-10 17:25] VITALS: BP 135/74; PULSE 78
== END 2023-05-10 17:06 | disposition home or self-care (01) ==
LOC: EC 13:54
DX: R07.89 Other chest pain (principal); F41.9 Anxiety disorder, unspecified; I45.10 Unspecified right bundle-branch block; F12.90 Cannabis use, unspecified, uncomplicated; I10 Essential (primary) hypertension; Z86.59 Personal history of other mental and behavioral disorders; Z87.891 Personal history of nicotine dependence; Z88.8 Allergy status to other drugs, medicaments and biological substances
CPT/HCPCS: 36415; 71046; 80053; 83735; 83880; 84484; 85025; 85610; 85730; 93005; 99285

== ENCOUNTER 2023-06-05 01:02 | Emergency (ER) | payer OTHER ==
[2023-06-05] MEDS ORDERED: ASPIRIN 81 MG PO STA (01:23)
[2023-06-05 01:27] VITALS: RESP 18; TEMP 97.9
--- NOTE | 2023-06-05 01:39 | ED ---
General Adult HPI - General Chief complaint: Chest Pain Stated complaint: Chest Pain Time Seen by Provider: 06/05/23 01:15 Source: patient, RN notes reviewed, old records reviewed Mode of arrival: ambulatory Limitations: no limitations - History of Present Illness Initial comments: Patient is a 43-year-old male with past medical history remarkable for h ypertension, hyperlipidemia. Has past medical history of prior RCA stent placed in October of this year. States this evening around 1930 he experienced some left-sided sharp stabbing chest pain that did not radiate. Resolved with 2 nitroglycerin tablets. Had recurrence of the pain later on in the evening so presents emergency department for further evaluation. States the second time the pain came on, symptoms resolved. States it may have been on his chest wall that was difficult to confirm. Denies any shortness of breath. Denies any nausea or vomiting or lightheadedness. No abdominal pain. No other acute complaints at this time. Currently asymptomatic. Presents for further evaluati on at this time. 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 - Related Data Home Medications Medication Instructions Recorded Confirmed Nitroglycerin Sl Tabs [Nitrostat] 0.4 mg SL Q5M PRN 11/10/22 11/10/22 Previous Rx's Medication Instructions Recorded Aspirin 81 mg PO DAILY #30 tab 10/27/22 Atorvastatin [Lipitor] 80 mg PO HS #30 tab 10/27/22 Metoprolol Tartrate [Lopressor] 25 mg PO BID #60 tab 10/27/22 Prasugrel [Effient] 10 mg PO DAILY #30 tab 10/27/22 lisinopriL [Zestril] 10 mg PO DAILY #30 tab 11/11/22 predniSONE 50 mg PO DAILY #5 tab 12/21/22 Allergies Allergy/AdvReac Type Severity Reaction Status Date / Time CONOR Inhibitors Allergy Rash/Hives Verified 06/05/23 01:11 Review of Systems ROS Statement: Those systems with pertinent positive or pertinent negative responses have been documented in the HPI. Review of Systems: CONST: Denies fever EYES: Denies blurry vision ENT: Denies nasal congestion C/V: Endorses chest pain RESP: Denies shortness of breath GI: Denies abdominal pain : Denies dysuria SKIN: Denies rash. MSK: Denies joint pain. NEURO: Denies headache ROS Other: All systems not noted in ROS Statement are negative. Past Medical History Past Medical History: Hyperlipidemia, Hypertension Additional Past Medical History / Comment(s): hydrocephalis History of Any Multi-Drug Resistant Organisms: None Reported Past Surgical History: Heart Catheterization With Stent Additional Past Surgical History / Comment(s): evp managing director shunt, vasectomy November 2018 Past Anesthesia/Blood Transfusion Reactions: No Reported Reaction Date of Last Stent Placement:: 10/27 Past Psychological History: Anxiety, Depression Smoking Status: Former smoker Past Alcohol Use History: None Reported Past Drug Use History: Marijuana - Past Family History Father Family Medical History: Cancer, Chest Pain / Angina, Coronary Artery Disease (CAD), Hyperlipidemia, Hypertension Additional Family Medical History / Comment(s): from colon cancer Mother Family Medical History: Coronary Artery Disease (CAD), Diabetes Mellitus, Hyperlipidemia, Hypertension General Exam - General Exam Comments Initial Comments: General: Appears in no acute distress. HEAD: Normal with no signs of head trauma. EYES: PERRLA, EOMI, conjunctiva normal, no discharge. ENT: Hearing grossly intact, normal oropharynx. RESPIRATORY: Clear breath sounds bilaterally. No wheezes, rales, or rhonchi. C/V: Regular rate and rhythm. S1 and S2 auscultated, no edema, peripheral pulses 2+ and intact throughout ABD: Abd is soft, nontender, nondistended EXT: Normal range of motion, no obvious deformity SKIN: No rashes or lesions observed on exposed skin. NEURO: Alert and oriented 4. No focal deficits. Limitations: no limitations Course Vital Signs 06/05/23 06/05/23 01:05 02:53 Temperature 97.9 F Pulse Rate 86 75 Respiratory 18 18 Rate Blood Pressure 166/99 139/81 O2 Sat by Pulse 96 97 Oximetry Medical Decision Making - Medical Decision Making Was pt. sent in by a medical professional or institution (, PA, CIRCULAR HEAD SAW OPERATOR, urgent care, hospital, or long-term...) When possible be specific @ -No Did you speak to anyone other than the patient for history (EMS, parent, family, police, friend...)? What history was obtained from this source @ -No Did you review nursing and triage notes (agree or disagree)? Why? @ -I reviewed and agree with nursing and triage notes Were old charts reviewed (outside hosp., previous admission, EMS record, old EKG, old radiological studies, urgent care reports/EKG's, long-term records)? Report findings @ -Old charts reviewed Differential Diagnosis (chest pain, altered mental status, abdominal pain women, abdominal pain men, vaginal bleeding, weakness, fever, dyspnea, syncope, headache, dizziness, GI bleed, back pain, seizure, CVA, palpatations, mental health, musculoskeletal)? @ -Differential Chest Pain: Stable Angina, Unstable Angina, STEMI, NSTEMI Aortic Dissection, Pneumothorax, Musculoskeletal, Esophageal Spasm GERD, Cholecystitis, Pancreatitis, Zoster, this is not meant to be an all-inclusive list. EKG interpreted by me (3pts min.). @ -As above X-rays interpreted by me (1pt min.). @ -Chest x-ray reveals no obvious acute cardio pulmonary process. CT interpreted by me (1pt min.). @ -None done U/S interpreted by me (1pt. min.). @ -None done What testing was considered but not performed or refused? (CT, X-rays, U/S, labs)? Why? @ -None What meds were considered but not given or refused? Why? @ -Considered nitroglycerin tablets however patient is asymptomatic. Did you discuss the management of the patient with other professionals (professionals i.e. , PA, CIRCULAR HEAD SAW OPERATOR, lab, RT, psych nurse, clinical social work therapist, scale balancer, teacher, u[employer]. revenue officer, immigration case manager)? Give summary @ -No Was smoking cessation discussed for >3mins.? @ -No Was critical care preformed (if so, how long)? @ -No Were there social determinants of health that impacted care today? How? (Homelessness, low income, unemployed, alcoholism, drug addiction, transportation, low edu. Level, literacy, decrease access to med. care, group home, rehab)? @ -No Was there de-escalation of care discussed even if they declined (Discuss DNR or withdrawal of care, Hospice)? DNR status @ -No What co-morbidities impacted this encounter? (DM, HTN, Smoking, COPD, CAD, Cancer, CVA, ARF, Chemo, Hep., AIDS, mental health diagnosis, sleep apnea, morbid obesity)? @ -None Was patient admitted / discharged? Hospital course, mention meds given and route, prescriptions, significant lab abnormalities, going to OR and other pertinent info. @ -Based the patient's presentation and physical exam, I'm concerned for possible croup him etiology for his current symptoms. Does have a service time. We will obtain cardiac workup. He is currently asymptomatic. He will receive 324 mgs of aspirin. Vital signs within except for limits. He was in agreement this plan. EKG shows no signs of acute ischemia and is similar to prior EKGs.Chest x-ray unremarkable. Patient's laboratory studies are remarkable for an undetectable troponin. On reevaluation, patient remains pain-free. Due to the patient's risk factors as well as previous history of cardiac stent I did recommend that he be admitted to the hospital for further telemetry monitoring and troponin trending. However patient refused. He states he feels improved and will return if he believes have chest pain again. I believe this is reasonable after we discussed the risks of going home at this time. Patient expresses understanding. Patient will be discharged home at this time. I instructed the patient to follow up with their PCP in the next 1-2 days. I explained that the patient should return to the emergency department if they experience any worsening symptoms. Strict return precautions were discussed with the patient. The patient expressed understanding of these instructions. I answered all questions that the patient had. The patient was discharged home in [good] condition with their prescriptions and follow up information. Undiagnosed new problem with uncertain prognosis? @ -No Drug Therapy requiring intensive monitoring for toxicity (Heparin, Nitro, Insulin, Cardizem)? @ -No Were any procedures done? @ -No Diagnosis/symptom? @ -Chest pain Acute, or Chronic, or Acute on Chronic? @ -Acute Uncomplicated (without systemic symptoms) or Complicated (systemic symptoms)? @ -Uncomplicated Side effects of treatment? @ -none Exacerbation, Progression, or Severe Exacerbation] @ -no Poses a threat to life or bodily function? @ -Potentially, yes - Lab Data Result diagrams: 06/05/23 01:45 06/05/23 01:45 Lab Results 06/05/23 06/05/23 06/05/23 Range/Units 01:45 01:45 01:45 WBC 11.8 H (3.8-10.6) k/uL RBC 5.13 (4.30-5.90) m/uL Hgb 14.7 (13.0-17.5) gm/dL Hct 43.3 (39.0-53.0) % MCV 84.3 (80.0-100.0) fL MCH 28.6 (25.0-35.0) pg MCHC 33.9 (31.0-37.0) g/dL RDW 13.0 (11.5-15.5) % Plt Count 345 (150-450) k/uL MPV 7.7 Neutrophils % 66 % Lymphocytes % 23 % Monocytes % 5 % Eosinophils % 4 % Basophils % 0 % Neutrophils # 7.8 H (1.3-7.7) k/uL Lymphocytes # 2.7 (1.0-4.8) k/uL Monocytes # 0.6 (0-1.0) k/uL Eosinophils # 0.4 (0-0.7) k/uL Basophils # 0.1 (0-0.2) k/uL PT 10.4 (10.0-12.5) sec INR 0.9 (<1.2) APTT 25.6 (22.0-30.0) sec Sodium 138 (137-145) mmol/L Potassium 4.1 (3.5-5.1) mmol/L Chloride 104 (98-107) mmol/L Carbon Dioxide 21 L (22-30) mmol/L Anion Gap 13 mmol/L BUN 18 (9-20) mg/dL Creatinine 0.82 (0.66-1.25) mg/dL Est GFR (CKD-EPI)AfAm >90 (>60 ml/min/1.73 sqM) Est GFR (CKD-EPI)NonAf >90 (>60 ml/min/1.73 sqM) Glucose 98 (74-99) mg/dL Calcium 9.6 (8.4-10.2) mg/dL Magnesium 2.0 (1.6-2.3) mg/dL Total Bilirubin 0.7 (0.2-1.3) mg/dL AST 31 (17-59) U/L ALT 33 (4-49) U/L Alkaline Phosphatase 132 H (38-126) U/L Troponin I (0.000-0.034) ng/mL Total Protein 7.6 (6.3-8.2) g/dL Albumin 4.3 (3.5-5.0) g/dL 06/05/23 Range/Units 01:45 WBC (3.8-10.6) k/uL RBC (4.30-5.90) m/uL Hgb (13.0-17.5) gm/dL Hct (39.0-53.0) % MCV (80.0-100.0) fL MCH (25.0-35.0) pg MCHC (31.0-37.0) g/dL RDW (11.5-15.5) % Plt Count (150-450) k/uL MPV Neutrophils % % Lymphocytes % % Monocytes % % Eosinophils % % Basophils % % Neutrophils # (1.3-7.7) k/uL Lymphocytes # (1.0-4.8) k/uL Monocytes # (0-1.0) k/uL Eosinophils # (0-0.7) k/uL Basophils # (0-0.2) k/uL PT (10.0-12.5) sec INR (<1.2) APTT (22.0-30.0) sec Sodium (137-145) mmol/L Potassium (3.5-5.1) mmol/L Chloride (98-107) mmol/L Carbon Dioxide (22-30) mmol/L Anion Gap mmol/L BUN (9-20) mg/dL Creatinine (0.66-1.25) mg/dL Est GFR (CKD-EPI)AfAm (>60 ml/min/1.73 sqM) Est GFR (CKD-EPI)NonAf (>60 ml/min/1.73 sqM) Glucose (74-99) mg/dL Calcium (8.4-10.2) mg/dL Magnesium (1.6-2.3) mg/dL Total Bilirubin (0.2-1.3) mg/dL AST (17-59) U/L ALT (4-49) U/L Alkaline Phosphatase (38-126) U/L Troponin I <0.012 (0.000-0.034) ng/mL Total Protein (6.3-8.2) g/dL Albumin (3.5-5.0) g/dL - EKG Data -: EKG Interpreted by Me EKG Comments: 12-lead Electrocardiogram Interpretation Note EKG was reviewed and interpreted by myself. 12-lead ECG performed at 0130 is interpreted by me as revealing normal sinus rhythm at a rate of 75 beats per minute. [place] is normal. [place] interval is 184 ms, QRS duration is 97 ms, QTc is 419 ms. Chronic T wave inversions in lead III. There were no ST or T wave abnormalities to suggest myocardial ischemia or injury. R wave progression across the precordium was satisfactory. By my interpretation this EKG is non- diagnostic for acute ischemia. Disposition Clinical Impression: Chest pain Disposition: HOME SELF-CARE Condition: Fair Instructions (If sedation given, give patient instructions): Chest Pain (ED) Is patient prescribed a controlled substance at d/c from ED?: No Referrals: Abdon Montes De Oca DO [Primary Care Provider] - 1-2 days Time of Disposition: 03:10
[2023-06-05 02:15] LABS: Basophils # (A) 0.1 k/uL (0-0.2); Basophils % (A) 0 %; Eosinophils # (A) 0.4 k/uL (0-0.7); Eosinophils % (A) 4 %; HCT 43.3 % (39.0-53.0); HGB 14.7 gm/dL (13.0-17.5); Lymphocytes # (A) 2.7 k/uL (1.0-4.8); Lymphocytes % (A) 23 %; MCH 28.6 pg (25.0-35.0); MCHC 33.9 g/dL (31.0-37.0); MCV 84.3 fL (80.0-100.0); Mean Platelet Volume 7.7; Monocytes # (A) 0.6 k/uL (0-1.0); Monocytes % (A) 5 %; Neutrophils # (A) 7.8 k/uL (1.3-7.7); Neutrophils % (A) 66 %; Platelet Count 345 k/uL (150-450); RBC 5.13 m/uL (4.30-5.90); WBC 11.8 k/uL (3.8-10.6)
[2023-06-05 02:26] LABS: ALT 33 U/L (4-49); AST 31 U/L (17-59); African American GFR (CKD) >90 (>60 ml/min/1.73 sqM); Albumin 4.3 g/dL (3.5-5.0); Alkaline Phosphatase 132 U/L (38-126); Anion Gap 13 mmol/L; Blood Urea Nitrogen 18 mg/dL (9-20); Calcium 9.6 mg/dL (8.4-10.2); Carbon Dioxide 21 mmol/L (22-30); Chloride 104 mmol/L (98-107); Glucose 98 mg/dL (74-99); Non-African American GFR(CKD) >90 (>60 ml/min/1.73 sqM); Potassium 4.1 mmol/L (3.5-5.1); Sodium 138 mmol/L (137-145); Total Bilirubin 0.7 mg/dL (0.2-1.3); Total Protein 7.6 g/dL (6.3-8.2)
[2023-06-05 02:30] LABS: INR 0.9 (<1.2); Partial Thromboplastin Time 25.6 sec (22.0-30.0); Prothrombin Time 10.4 sec (10.0-12.5)
--- NOTE | 2023-06-05 02:54 | XR ---
EXAM: XR Chest, 2 Views CLINICAL HISTORY: ITS.REASON XR Reason: Chest Pain TECHNIQUE: Frontal and lateral views of the chest. COMPARISON: No relevant prior studies available. FINDINGS: Lungs: Unremarkable. No consolidation. Pleural space: Unremarkable. No pneumothorax. Heart: Unremarkable. No cardiomegaly. Mediastinum: Unremarkable. Normal mediastinal contour. Bones/joints: Unremarkable. No acute fracture. IMPRESSION: Normal chest x-rays.
[2023-06-05 03:13] VITALS: BP 139/81; PULSE 75
== END 2023-06-05 03:38 | disposition home or self-care (01) ==
LOC: EC 01:02
DX: R07.89 Other chest pain (principal); I10 Essential (primary) hypertension; Z86.59 Personal history of other mental and behavioral disorders; Z87.891 Personal history of nicotine dependence; F12.90 Cannabis use, unspecified, uncomplicated; Z88.8 Allergy status to other drugs, medicaments and biological substances
CPT/HCPCS: 36415; 71046; 80053; 83735; 84484; 85025; 85610; 85730; 93005; 99285

== ENCOUNTER 2023-06-05 18:26 | Emergency (ER) | payer OTHER ==
[2023-06-05 18:53] VITALS: TEMP 98
[2023-06-05 19:33] LABS: Basophils # (A) 0.1 k/uL (0-0.2); Basophils % (A) 0 %; Eosinophils # (A) 0.4 k/uL (0-0.7); Eosinophils % (A) 3 %; HGB 14.6 gm/dL (13.0-17.5); Lymphocytes # (A) 1.9 k/uL (1.0-4.8); Lymphocytes % (A) 16 %; MCV 85.5 fL (80.0-100.0); Mean Platelet Volume 7.7; Monocytes # (A) 0.6 k/uL (0-1.0); Monocytes % (A) 5 %; Neutrophils # (A) 9.5 k/uL (1.3-7.7); Neutrophils % (A) 75 %; Platelet Count 357 k/uL (150-450); RBC 5.03 m/uL (4.30-5.90); RDW 13.1 % (11.5-15.5); WBC 12.6 k/uL (3.8-10.6)
--- NOTE | 2023-06-05 19:35 | ED ---
Chest Pain HPI - General Source: patient, RN notes reviewed Mode of arrival: ambulatory Limitations: no limitations - History of Present Illness MD Complaint: chest pain <Leslie Gutierrez - Last Filed: 06/05/23 19:27> - General Source: patient, RN notes reviewed, old records reviewed <Sagar Garg - Last Filed: 06/06/23 05:23> - General Chief Complaint: Chest Pain Stated Complaint: stabbing chest pain Time Seen by Provider: 06/05/23 19:27 - History of Present Illness Initial Comments: This is a 43-year-old male who presents to the emergency department for chest pain. Patient was evaluated here last night for left sided sharp stabbing chest pain that resolved with nitroglycerin tablets. He had an RCA stent placed in October of this year. Given his cardiac history, admission for cardiac monitoring was recommended, however he refused because his symptoms had improved. He returns today because the chest pain returned. (Leslie Gutierrez) Patient is a 43-year-old male with past medical history remarkable for prior cardiac stent isn't similar to department with chest pain. I evaluated the patient yesterday and offered admission for cardiac monitoring however patient wanted to go home following single troponin. He returns today because he had another episode of chest pain during exertion at work and presents for further evaluation. Currently asymptomatic. No other acute complaints at this time. Originally evaluated as a quick note. I evaluated the patient after he is placed in a hallway following laboratory studies. Chest pain described as stabbing over the left chest. No radiation. No other symptoms with it. Denies any nausea or radiation.Patient has been asymptomatic since arrival in the department. (Sagar Garg) - Related Data Home Medications Medication Instructions Recorded Confirmed Nitroglycerin Sl Tabs [Nitrostat] 0.4 mg SL Q5M PRN 11/10/22 11/10/22 Previous Rx's Medication Instructions Recorded Aspirin 81 mg PO DAILY #30 tab 10/27/22 Atorvastatin [Lipitor] 80 mg PO HS #30 tab 10/27/22 Metoprolol Tartrate [Lopressor] 25 mg PO BID #60 tab 10/27/22 Prasugrel [Effient] 10 mg PO DAILY #30 tab 10/27/22 lisinopriL [Zestril] 10 mg PO DAILY #30 tab 11/11/22 predniSONE 50 mg PO DAILY #5 tab 12/21/22 Allergies Allergy/AdvReac Type Severity Reaction Status Date / Time CONOR Inhibitors Allergy Rash/Hives Verified 06/05/23 18:40 Review of Systems ROS Other: All systems not noted in ROS Statement are negative. <RickykrunalLeslie - Last Filed: 06/05/23 19:27> ROS Other: All systems not noted in ROS Statement are negative. <Sagar Garg - Last Filed: 06/06/23 05:23> ROS Statement: Those systems with pertinent positive or pertinent negative responses have been documented in the HPI. Review of Systems: CONST: Denies fever EYES: Denies blurry vision ENT: Denies nasal congestion C/V: Denies Chest pain RESP: Denies shortness of breath GI: Denies abdominal pain : Denies dysuria SKIN: Denies rash. MSK: Denies joint pain. NEURO: Denies headache (Sagar Garg) EKG Findings - EKG Comments: EKG Findings:: 12-lead Electrocardiogram Interpretation Note. EKG was reviewed and interpreted by myself. 12-lead ECG performed at 1845 is interpreted by me as revealing normal sinus rhythm at a rate of 75 beats per minute. [place] is normal. RI interval is 191 ms. QRS duration 79 ms. QTc is 425 ms.. There were no ST or T wave abnormalities to suggest myocardial ischemia or injury. R wave progression across the precordium was satisfactory. By my interpretation this EKG is non-diagnostic for acute ischemia. 12-lead Electrocardiogram Interpretation Note. EKG was reviewed and interpreted by myself. 12-lead ECG performed at 2316 is interpreted by me as revealing normal sinus rhythm at a rate of 69 beats per minute. [place] is normal. RI intervals 187 ms, QRS duration is 96 ms, QTc is 414 ms.. There were no ST or T wave abnormalities to suggest myocardial ischemia or injury. R wave progression across the precordium was satisfactory. By my interpretation this EKG is non-diagnostic for acute ischemia. No dynamic changes between EKGs or when compared with EKG from yesterday. - EKG Results: EKG: interpreted by ERMD <Sagar Garg - Last Filed: 06/06/23 05:23> Past Medical History Past Medical History: Hyperlipidemia, Hypertension Additional Past Medical History / Comment(s): hydrocephalis History of Any Multi-Drug Resistant Organisms: None Reported Past Surgical History: Heart Catheterization With Stent Additional Past Surgical History / Comment(s): vp strategy shunt, vasectomy November 2018 Past Anesthesia/Blood Transfusion Reactions: No Reported Reaction Date of Last Stent Placement:: 10/27 Past Psychological History: Anxiety, Depression Smoking Status: Former smoker Past Alcohol Use History: None Reported Past Drug Use History: Marijuana - Past Family History Father Family Medical History: Cancer, Chest Pain / Angina, Coronary Artery Disease (CAD), Hyperlipidemia, Hypertension Additional Family Medical History / Comment(s): from colon cancer Mother Family Medical History: Coronary Artery Disease (CAD), Diabetes Mellitus, Hyperlipidemia, Hypertension <Leslie Gutierrez - Last Filed: 06/05/23 19:27> General Exam Limitations: no limitations <Leslie Gutierrez - Last Filed: 06/05/23 19:27> <Sagar Garg - Last Filed: 06/06/23 05:23> - General Exam Comments Initial Comments: Visual Physical Exam Vital signs reviewed General: Well-appearing, nontoxic, no acute distress. Head: Normocephalic, atraumatic Eyes: PERRLA, EOMI ENT: Airway patent Chest: Nonlabored breathing Skin: No visual rash, normal skin tone Neuro: Alert and oriented 3 Musculoskeletal: No gross abnormalities (Leslie Gutierrez) General: Appears in no acute distress. HEAD: Normal with no signs of head trauma. EYES: PERRLA, EOMI, conjunctiva normal, no discharge. ENT: Hearing grossly intact, normal oropharynx. RESPIRATORY: Clear breath sounds bilaterally. No wheezes, rales, or rhonchi. C/V: Regular rate and rhythm. S1 and S2 auscultated, no edema, peripheral pulses 2+ and intact throughout ABD: Abd is soft, nontender, nondistended EXT: Normal range of motion, no obvious deformity SKIN: No rashes or lesions observed on exposed skin. NEURO: Alert and oriented x 4. Cranial nerves II-XII intact. No focal sensory or strength deficits. (Sagar Garg) Course Vital Signs 06/05/23 06/05/23 18:37 22:06 Temperature 98 F Pulse Rate 79 70 Respiratory 16 18 Rate Blood Pressure 150/84 139/81 O2 Sat by Pulse 97 95 Oximetry Chest Pain MDM <Leslie Gutierrez Last Filed: 06/05/23 19:27> <Sagar Garg - Last Filed: 06/06/23 05:23> - [facility] I performed the QuickNote portion of this chart. Signed Leslie Gutierrez PA-C. (Leslie Gutierrez) Was pt. sent in by a medical professional or institution (, TEJA, DIRECTOR OF MEDICAL EDUCATION, urgent care, hospital, or shelter...) When possible be specific @ -No Did you speak to anyone other than the patient for history (EMS, parent, family, police, friend...)? What history was obtained from this source @ -No Did you review nursing and triage notes (agree or disagree)? Why? @ -I reviewed and agree with nursing and triage notes Were old charts reviewed (outside hosp., previous admission, EMS record, old EKG, old radiological studies, urgent care reports/EKG's, shelter records)? Report findings @ -Old charts reviewed Differential Diagnosis (chest pain, altered mental status, abdominal pain women, abdominal pain men, vaginal bleeding, weakness, fever, dyspnea, syncope, headache, dizziness, GI bleed, back pain, seizure, CVA, palpatations, mental health, musculoskeletal)? @ -Differential Chest Pain: Stable Angina, Unstable Angina, STEMI, NSTEMI Aortic Dissection, Pneumothorax, Musculoskeletal, Esophageal Spasm GERD, Cholecystitis, Pancreatitis, Zoster, this is not meant to be an all-inclusive list. EKG interpreted by me (3pts min.). @ -As above X-rays interpreted by me (1pt min.). @ -Chest X Ray reveals no obvious acute cardio pulmonary process. CT interpreted by me (1pt min.). @ -None done U/S interpreted by me (1pt. min.). @ -None done What testing was considered but not performed or refused? (CT, X-rays, U/S, labs)? Why? @ -None What meds were considered but not given or refused? Why? @ -None Did you discuss the management of the patient with other professionals (professionals i.e. TEJA Morin, DIRECTOR OF MEDICAL EDUCATION, lab, RT, psych nurse, psychotherapist social worker, ear pull machine operator, teacher, motorized squad commanding officer, case management coordinator)? Give summary @ -No Was smoking cessation discussed for >3mins.? @ -No Was critical care preformed (if so, how long)? @ -No Were there social determinants of health that impacted care today? How? (Homelessness, low income, unemployed, alcoholism, drug addiction, transportation, low edu. Level, literacy, decrease access to med. care, detention, rehab)? @ -No Was there de-escalation of care discussed even if they declined (Discuss DNR or withdrawal of care, Hospice)? DNR status @ -No What co-morbidities impacted this encounter? (DM, HTN, Smoking, COPD, CAD, Cancer, CVA, ARF, Chemo, Hep., AIDS, mental health diagnosis, sleep apnea, morbid obesity)? @ -None Was patient admitted / discharged? Hospital course, mention meds given and rout e, prescriptions, significant lab abnormalities, going to OR and other pertinent info. @ -Based on the patient's presentation and physical exam, presents with chest pain. Patient only took aspirin today. Currently is asymptomatic. I evaluated the patient last night for similar complaints. He did not want to stay for additional testing. Returns today. I did discuss with him, and he is willing to stay for 1 additional troponin today. If it is normal in he does not want to be admitted to take the bed since he is asymptomatic and has no other symptoms. I do believe this is reasonable. Workup was already started is quick known initial troponin undetectable. Remainder the workup including EKG and chest x- ray unremarkable. We will obtain a second troponin. He was in agreement this plan. Second troponin remains undetectable. He remains asymptomatic. Vital signs remained within normal limits. I did discuss results with him. He'll be discharged home at this time. Recommended a follow-up with cardiology in the next 1-3 days as well as his PCP. He was in agreement this plan. I instructed the patient to follow up with their PCP in the next 1-3 days. I explained that the patient should return to the emergency department if they experience any worsening symptoms. Strict return precautions were discussed with the patient. The patient expressed understanding of these instructions. I answered all questions that the patient had. The patient was discharged home in good condition with their prescriptions and follow up information. Undiagnosed new problem with uncertain prognosis? @ -No Drug Therapy requiring intensive monitoring for toxicity (Heparin, Nitro, Insulin, Cardizem)? @ -No Were any procedures done? @ -No Diagnosis/symptom? @ -atypical Chest pain Acute, or Chronic, or Acute on Chronic? @ -Acute Uncomplicated (without systemic symptoms) or Complicated (systemic symptoms)? @ -Uncomplicated Side effects of treatment? @ -No Exacerbation, Progression, or Severe Exacerbation? @ -No Poses a threat to life or bodily function? How? (Chest pain, [place], [place], pneumonia, PE, COPD, DKA, ARF, appy, cholecystitis, CVA, Diverticulitis, Homicidal, Suicidal, threat to staff... and all critical care pts) @ -Unlikely (Sagar Garg) Disposition <Leslie Gutierrez - Last Filed: 06/05/23 19:27> Is patient prescribed a controlled substance at d/c from ED?: No Time of Disposition: 23:51 <Sagar Garg - Last Filed: 06/06/23 05:23> Clinical Impression: Atypical chest pain Disposition: HOME SELF-CARE Condition: Good Instructions (If sedation given, give patient instructions): Chest Pain (ED) Referrals: Abdon Montes De Oca, DO [Primary Care Provider] - 1-2 days
[2023-06-05 19:49] LABS: Prothrombin Time 10.6 sec (10.0-12.5)
[2023-06-05 20:33] LABS: ALT 33 U/L (4-49); AST 28 U/L (17-59); African American GFR (CKD) >90 (>60 ml/min/1.73 sqM); Albumin 4.1 g/dL (3.5-5.0); Alkaline Phosphatase 117 U/L (38-126); Anion Gap 14 mmol/L; Blood Urea Nitrogen 19 mg/dL (9-20); Calcium 9.5 mg/dL (8.4-10.2); Carbon Dioxide 22 mmol/L (22-30); Chloride 103 mmol/L (98-107); Glucose 153 mg/dL (74-99); Magnesium 2.1 mg/dL (1.6-2.3); Non-African American GFR(CKD) >90 (>60 ml/min/1.73 sqM); Potassium 4.3 mmol/L (3.5-5.1); Sodium 139 mmol/L (137-145); Total Bilirubin 0.6 mg/dL (0.2-1.3); Total Protein 7.1 g/dL (6.3-8.2)
--- NOTE | 2023-06-05 21:43 | XR ---
EXAMINATION: XR chest 2V: 06/05/2023 8:30 PM CLINICAL INDICATION: Chest Pain TECHNIQUE: Departmental protocol COMPARISON: 06/05/2023 FINDINGS: The lungs are clear. The pleural spaces are negative. 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 The cardiac rayna houette is not enlarged. The remainder of the mediastinal silhouette is unremarkable. The skeletal structures and soft tissues are negative for acute findings. IMPRESSION: No acute radiographic process.
[2023-06-05 22:23] VITALS: BP 139/81; PULSE 70; RESP 18
== END 2023-06-06 00:48 | disposition home or self-care (01) ==
LOC: EC 18:26
DX: R07.89 Other chest pain (principal); I10 Essential (primary) hypertension; Z88.8 Allergy status to other drugs, medicaments and biological substances; Z79.899 Other long term (current) drug therapy
CPT/HCPCS: 36415; 71046; 80053; 83735; 84484; 85025; 85610; 85730; 93005; 99285

== ENCOUNTER 2023-11-28 00:38 | Emergency (ER) | payer OTHER ==
[2023-11-28 01:06] VITALS: TEMP 98
[2023-11-28] MEDS: LIDOCAINE 4% PATCH TOPICAL ONE (02:14)
[2023-11-28] MEDS: KETOROLAC 15 MG/ML 1 ML VIAL IM STA (02:15)
[2023-11-28] MEDS: DEXAMETHASONE SOD PHOSPHATE 10 MG/ML 1 ML VIAL IM STA (02:18)
[2023-11-28] MEDS: ORPHENADRINE 30 MG/ML 2 ML VIAL IM STA (02:20)
--- NOTE | 2023-11-28 02:42 | ED ---
Back Pain HPI - General Chief Complaint: Back Pain/Injury Stated Complaint: Extreme lower back pain Time Seen by Provider: 11/28/23 01:05 Source: patient Limitations: no limitations - History of Present Illness Initial Comments: 43-year-old male presenting with chief complaint of lower back pain. Patient states that pain started while he was at work this evening. He states that he normally has lower back pain when he stands for over 10 minutes at a time. He was standing for about 40 minutes tonight and had worsening back pain. He has not taken anything for his pain. No loss of bowel or bladder control or saddle paresthesia. No fevers or urinary symptoms. No abdominal pain. No chest pain or difficulty breathing. No injury or trauma. - Related Data Home Medications Medication Instructions Recorded Confirmed Nitroglycerin Sl Tabs [Nitrostat] 0.4 mg SL Q5M PRN 11/10/22 11/10/22 Previous Rx's Medication Instructions Recorded Aspirin 81 mg PO DAILY #30 tab 10/27/22 Atorvastatin [Lipitor] 80 mg PO HS #30 tab 10/27/22 Metoprolol Tartrate [Lopressor] 25 mg PO BID #60 tab 10/27/22 Prasugrel [Effient] 10 mg PO DAILY #30 tab 10/27/22 lisinopriL [Zestril] 10 mg PO DAILY #30 tab 11/11/22 predniSONE 50 mg PO DAILY #5 tab 12/21/22 Allergies Allergy/AdvReac Type Severity Reaction Status Date / Time CONOR Inhibitors Allergy Rash/Hives Verified 11/28/23 00:58 Review of Systems ROS Statement: Those systems with pertinent positive or pertinent negative responses have been documented in the HPI. ROS Other: All systems not noted in ROS Statement are negative. Past Medical History Past Medical History: Hyperlipidemia, Hypertension Additional Past Medical History / Comment(s): hydrocephalis History of Any Multi-Drug Resistant Organisms: None Reported Past Surgical History: Heart Catheterization With Stent Additional Past Surgical History / Comment(s): vp [employer] shunt, vasectomy November 2018 Past Anesthesia/Blood Transfusion Reactions: No Reported Reaction Date of Last Stent Placement:: 10/27 Past Psychological History: Anxiety, Depression Smoking Status: Former smoker Past Alcohol Use History: None Reported Past Drug Use History: Marijuana - Past Family History Father Family Medical History: Cancer, Chest Pain / Angina, Coronary Artery Disease (CAD), Hyperlipidemia, Hypertension Additional Family Medical History / Comment(s): from colon cancer Mother Family Medical History: Coronary Artery Disease (CAD), Diabetes Mellitus, Hyperlipidemia, Hypertension General Exam Limitations: no limitations General appearance: alert, in no apparent distress Head exam: Present: atraumatic, normocephalic Eye exam: Present: normal appearance, EOMI Neck exam: Present: normal inspection Respiratory exam: Absent: respiratory distress Cardiovascular Exam: Present: regular rate Back exam: Present: normal inspection Neurological exam: Present: alert, oriented X3 Psychiatric exam: Present: normal affect, normal mood Skin exam: Present: normal color Course Vital Signs 11/28/23 11/28/23 00:56 02:24 Temperature 98 F Pulse Rate 79 64 Respiratory 18 20 Rate Blood Pressure 156/90 159/96 O2 Sat by Pulse 98 97 Oximetry Medical Decision Making - Medical Decision Making Was pt. sent in by a medical professional or institution (, PA, MAINTENANCE SUPERVISOR 2ND SHIFT, urgent care, hospital, or longterm...) When possible be specific @ -No Did you speak to anyone other than the patient for history (EMS, parent, family, police, friend...)? What history was obtained from this source @ -No Did you review nursing and triage notes (agree or disagree)? Why? @ -I reviewed and agree with nursing and triage notes Were old charts reviewed (outside hosp., previous admission, EMS record, old EKG, old radiological studies, urgent care reports/EKG's, longterm records)? Report findings @ -No old charts were reviewed Differential Diagnosis (chest pain, altered mental status, abdominal pain women, abdominal pain men, vaginal bleeding, weakness, fever, dyspnea, syncope, headache, dizziness, GI bleed, back pain, seizure, CVA, palpatations, mental health, musculoskeletal)? @ - MDM Differential Back Pain: Strain, zoster, cauda equina syndrome, epidural abscess, vertebral osteomyelitis, discitis, fracture, subluxation, disc herniation, DJD, spinal stenosis, dissection, AAA, pancreatitis, peptic ulcer disease, pyelonephritis, kidney stone this is not meant to be an all-inclusive list. EKG interpreted by me (3pts min.). @ -As above X-rays interpreted by me (1pt min.). @ -None done CT interpreted by me (1pt min.). @ -None done U/S interpreted by me (1pt. min.). @ -None done What testing was considered but not performed or refused? (CT, X-rays, U/S, labs)? Why? @ -None What meds were considered but not given or refused? Why? @ -None Did you discuss the management of the patient with other professionals (professionals i.e. Dr., PA, MAINTENANCE SUPERVISOR 2ND SHIFT, lab, RT, psych nurse, administrator social welfare, head resident, teacher, chief credit officer, family preservation caseworker)? Give summary @ -No Was smoking cessation discussed for >3mins.? @ -No Was critical care preformed (if so, how long)? @ -No Were there social determinants of health that impacted care today? How? (Homelessness, low income, unemployed, alcoholism, drug addiction, transportation, low edu. Level, literacy, decrease access to med. care, fpc, rehab)? @ -No Was there de-escalation of care discussed even if they declined (Discuss DNR or withdrawal of care, Hospice)? DNR status @ -No What co-morbidities impacted this encounter? (DM, HTN, Smoking, COPD, CAD, Cancer, CVA, ARF, Chemo, Hep., AIDS, mental health diagnosis, sleep apnea, morbid obesity)? @ -None Was patient admitted / discharged? Hospital course, mention meds given and route, prescriptions, significant lab abnormalities, going to OR and other pertinent info. @ -43-year-old male presenting with chief complaint of lower back pain. History of chronic back pain. No red flag symptoms. Patient is treated with pain medication. On reassessment he reports improvement in his pain. Disch arged home. Follow-up with PCP. Report back to ER with any new or worsening symptoms. Discussed return parameters and answered all questions. Patient conveyed verbal understanding and agreed to the plan. I discussed this case in detail with my attending Dr. Augustin Undiagnosed new problem with uncertain prognosis? @ -No Drug Therapy requiring intensive monitoring for toxicity (Heparin, Nitro, Insulin, Cardizem)? @ -No Were any procedures done? @ -No Diagnosis/symptom? @ -Low back pain Acute, or Chronic, or Acute on Chronic? @ -Acute on chronic Uncomplicated (without systemic symptoms) or Complicated (systemic symptoms)? @ -Uncomplicated Side effects of treatment? @ -No Exacerbation, Progression, or Severe Exacerbation? @ -No Poses a threat to life or bodily function? How? (Chest pain, [place], [place], pneumonia, PE, COPD, DKA, ARF, appy, cholecystitis, CVA, Diverticulitis, Homicidal, Suicidal, threat to staff... and all critical care pts) @ -unlikely Disposition Clinical Impression: Low back pain Disposition: HOME SELF-CARE Condition: Good Instructions (If sedation given, give patient instructions): Acute Low Back Pain (ED) Additional Instructions: Follow-up with PCP. Report back to ER with any new or worsening symptoms. Is patient prescribed a controlled substance at d/c from ED?: No Referrals: Abdon Montes De Oca DO [Primary Care Provider] - 1-2 days Time of Disposition: 02:42
[2023-11-28 02:53] VITALS: BP 159/96; PULSE 64; RESP 20
== END 2023-11-28 02:50 | disposition home or self-care (01) ==
LOC: EC 00:38
DX: M54.50 Low back pain, unspecified (principal); F12.90 Cannabis use, unspecified, uncomplicated; Z88.8 Allergy status to other drugs, medicaments and biological substances; Z87.891 Personal history of nicotine dependence
CPT/HCPCS: 99283; 96372 ×3; J1100; J2360; J1885

== ENCOUNTER 2023-12-05 19:22 | Emergency (ER) | payer OTHER ==
--- NOTE | 2023-12-05 19:55 | ED ---
General Adult HPI - General Chief complaint: Recheck/Abnormal Lab/Rx Stated complaint: back pain Time Seen by Provider: 12/05/23 19:54 Source: patient, RN notes reviewed Mode of arrival: ambulatory Limitations: physical limitation - History of Present Illness Initial comments: 43-year-old male presenting with chief complaint of lower back pain. Patient wa s seen here recently for this lower back pain. He has history of chronic lower back pain. He was seen at urgent care today. He informed urgent care that he had similar lower back pain when he had his last heart attack which prompted them to refer him to the ER. Patient is having no chest pain or difficulty breathing. He states that "I would like some tests done on my heart". No nausea, vomiting, abdominal pain, dysuria, hematuria fever, chills, diarrhea. No lower extremity pain or swelling. No loss of bowel or bladder control or saddle paresthesia. - Related Data Home Medications Medication Instructions Recorded Confirmed Nitroglycerin Sl Tabs [Nitrostat] 0.4 mg SL Q5M PRN 11/10/22 11/10/22 Previous Rx's Medication Instructions Recorded Aspirin 81 mg PO DAILY #30 tab 10/27/22 Atorvastatin [Lipitor] 80 mg PO HS #30 tab 10/27/22 Metoprolol Tartrate [Lopressor] 25 mg PO BID #60 tab 10/27/22 Prasugrel [Effient] 10 mg PO DAILY #30 tab 10/27/22 lisinopriL [Zestril] 10 mg PO DAILY #30 tab 11/11/22 predniSONE 50 mg PO DAILY #5 tab 12/21/22 Allergies Allergy/AdvReac Type Severity Reaction Status Date / Time CONOR Inhibitors Allergy Rash/Hives Verified 12/05/23 19:35 Review of Systems ROS Statement: Those systems with pertinent positive or pertinent negative responses have been documented in the HPI. ROS Other: All systems not noted in ROS Statement are negative. Past Medical History Past Medical History: Hyperlipidemia, Hypertension Additional Past Medical History / Comment(s): hydrocephalis, depression, anxiety History of Any Multi-Drug Resistant Organisms: None Reported Past Surgical History: Heart Catheterization With Stent Additional Past Surgical History / Comment(s): evp shunt, vasectomy November 2018 Past Anesthesia/Blood Transfusion Reactions: No Reported Reaction Date of Last Stent Placement:: 10/27 Past Psychological History: Anxiety, Depression Smoking Status: Former smoker Past Alcohol Use History: None Reported Past Drug Use History: None Reported - Past Family History Father Family Medical History: Cancer, Chest Pain / Angina, Coronary Artery Disease (CAD), Hyperlipidemia, Hypertension Additional Family Medical History / Comment(s): from colon cancer Mother Family Medical History: Coronary Artery Disease (CAD), Diabetes Mellitus, Hyperlipidemia, Hypertension General Exam - General Exam Comments Initial Comments: Visual Physical Exam Vital signs reviewed General: Well-appearing, nontoxic, no acute distress. Head: Normocephalic, atraumatic Eyes: PERRLA, EOMI ENT: Airway patent Chest: Nonlabored breathing Skin: No visual rash, normal skin tone Neuro: Alert and oriented 3 Musculoskeletal: No gross abnormalities General appearance: alert, in no apparent distress Head exam: Present: atraumatic, normocephalic Eye exam: Present: normal appearance, EOMI Neck exam: Present: normal inspection. Absent: meningismus Respiratory exam: Present: normal lung sounds bilaterally. Absent: respiratory distress, wheezes, rales, rhonchi, stridor Cardiovascular Exam: Present: regular rate, normal rhythm, normal heart sounds. Absent: systolic murmur, diastolic murmur, rubs, gallop, clicks Left Neurovascular tendon exam: Present: no vascular compromise Right Neurovascular tendon exam: Present: no vascular compromise Back exam: Present: normal inspection Neurological exam: Present: alert, oriented X3 Psychiatric exam: Present: normal affect, normal mood Skin exam: Present: normal color Course Vital Signs 12/05/23 12/05/23 12/05/23 19:28 20:58 23:40 Temperature 99.4 F 98.4 F 98.6 F Pulse Rate 100 87 88 Respiratory 20 22 20 Rate Blood Pressure 158/97 147/90 154/92 O2 Sat by Pulse 98 98 97 Oximetry Medical Decision Making - Medical Decision Making I performed the quick note portion of this visit, electronically signed Nate Mclain PA-C Was pt. sent in by a medical professional or institution (TEJA Morin, GROUP DYNAMICS INSTRUCTOR, urgent care, hospital, or long-term...) When possible be specific @ -No Did you speak to anyone other than the patient for history (EMS, parent, family, police, friend...)? What history was obtained from this source @ -No Did you review nursing and triage notes (agree or disagree)? Why? @ -I reviewed and agree with nursing and triage notes Were old charts reviewed (outside hosp., previous admission, EMS record, old EKG, old radiological studies, urgent care reports/EKG's, long-term records)? Report findings @ -No old charts were reviewed Differential Diagnosis (chest pain, altered mental status, abdominal pain women, abdominal pain men, vaginal bleeding, weakness, fever, dyspnea, syncope, headache, dizziness, GI bleed, back pain, seizure, CVA, palpatations, mental health, musculoskeletal)? @ - MDM Differential Back Pain: Strain, zoster, cauda equina syndrome, epidural abscess, vertebral oste omyelitis, discitis, fracture, subluxation, disc herniation, DJD, spinal stenosis, dissection, AAA, pancreatitis, peptic ulcer disease, pyelonephritis, kidney stone this is not meant to be an all-inclusive list. EKG interpreted by me (3pts min.). @ -EKG shows sinus rhythm with occasional ventricular premature complexes. Ventricular rate 87. NC interval 160. QRS 96. QT 376. QTc 421. X-rays interpreted by me (1pt min.). @ -Lumbar spine x-ray shows no acute fracture. Mild multilevel disc degeneration. CT interpreted by me (1pt min.). @ -CT shows fluid in the right inguinal canal. Hepatic steatosis. Atrophy of the right kidney. U/S interpreted by me (1pt. min.). @ -None done What testing was considered but not performed or refused? (CT, X-rays, U/S, labs)? Why? @ -None What meds were considered but not given or refused? Why? @ -None Did you discuss the management of the patient with other professionals (professionals i.e. , PA, GROUP D[employer] INSTRUCTOR, lab, RT, psych nurse, social services assistant, rate manager, teacher, chief financial officer, classification case manager)? Give summary @ -No Was smoking cessation discussed for >3mins.? @ -No Was critical care preformed (if so, how long)? @ -No Were there social determinants of health that impacted care today? How? (Homelessness, low income, unemployed, alcoholism, drug addiction, transportation, low edu. Level, literacy, decrease access to med. care, intermediate, rehab)? @ -No Was there de-escalation of care discussed even if they declined (Discuss DNR or withdrawal of care, Hospice)? DNR status @ -No What co-morbidities impacted this encounter? (DM, HTN, Smoking, COPD, CAD, Cancer, CVA, ARF, Chemo, Hep., AIDS, mental health diagnosis, sleep apnea, morbid obesity)? @ -None Was patient admitted / discharged? Hospital course, mention meds given and route, prescriptions, significant lab abnormalities, going to OR and other pertinent info. @ -43-year-old male present with chief complaint of lower back pain. He was sent here by urgent care because "this feels like the back pain I have my my heart attack". He is having no chest pain or difficulty breathing. Workup is initiated by triage. Negative troponin. EKG shows sinus rhythm with no ST deviation. Urine shows no infectious process, 2 RBCs. Lumbar spine x-ray shows no acute fracture with mild multilevel disc degeneration. Patient is later placed in a room and evaluated by myself. His pain seems to be somewhat in the flank region so CT is obtained. No obstructive uropathy is noted. On reasse ssment the patient is resting comfortably, no pain at this time. He is educated on today's findings. Discharged. Follow-up with PCP. Report back to ER with any new or worsening symptoms. Discussed return parameters and answered all questions. Patient conveyed verbal understanding and agreed to the plan. I discussed this case in detail with my attending Dr. Jett Undiagnosed new problem with uncertain prognosis? @ -No Drug Therapy requiring intensive monitoring for toxicity (Heparin, Nitro, Insulin, Cardizem)? @ -No Were any procedures done? @ -No Diagnosis/symptom? @ -Low back pain Acute, or Chronic, or Acute on Chronic? @ -Acute Uncomplicated (without systemic symptoms) or Complicated (systemic symptoms)? @ -Uncomplicated Side effects of treatment? @ -No Exacerbation, Progression, or Severe Exacerbation? @ -No Poses a threat to life or bodily function? How? (Chest pain, [place], [place], pneumonia, PE, COPD, DKA, ARF, appy, cholecystitis, CVA, Diverticulitis, Homicidal, Suicidal, threat to staff... and all critical care pts) @ -Low likelihood - Lab Data Result diagrams: 12/05/23 20:57 12/05/23 20:57 Lab Results 12/05/23 12/05/2312/04/24 Range/Units 20:57 20:57 20:57 WBC 12.9 H (3.8-10.6) k/uL RBC 5.35 (4.30-5.90) m/uL Hgb 14.7 (13.0-17.5) gm/dL Hct 45.0 (39.0-53.0) % MCV 84.0 (80.0-100.0) fL MCH 27.4 (25.0-35.0) pg MCHC 32.6 (31.0-37.0) g/dL RDW 13.7 (11.5-15.5) % Plt Count 297 (150-450) k/uL MPV 8.1 Neutrophils % 68 % Lymphocytes % 21 % Monocytes % 6 % Eosinophils % 3 % Basophils % 1 % Neutrophils # 8.8 H (1.3-7.7) k/uL Lymphocytes # 2.7 (1.0-4.8) k/uL Monocytes # 0.8 (0-1.0) k/uL Eosinophils # 0.4 (0-0.7) k/uL Basophils # 0.1 (0-0.2) k/uL PT 10.3 (10.0-12.5) sec INR 0.9 (<1.2) APTT 23.3 (22.0-30.0) sec Sodium 141 (137-145) mmol/L Potassium 3.9 (3.5-5.1) mmol/L Chloride 110 H (98-107) mmol/L Carbon Dioxide 20 L (22-30) mmol/L Anion Gap 11 mmol/L BUN 17 (9-20) mg/dL Creatinine 0.92 (0.66-1.25) mg/dL Est GFR (CKD-EPI)AfAm >90 (>60 ml/min/1.73 sqM) Est GFR (CKD-EPI)NonAf >90 (>60 ml/min/1.73 sqM) Glucose 103 H (74-99) mg/dL Calcium 9.4 (8.4-10.2) mg/dL Magnesium 2.0 (1.6-2.3) mg/dL Total Bilirubin 0.4 (0.2-1.3) mg/dL AST 24 (17-59) U/L ALT 26 (4-49) U/L Alkaline Phosphatase 140 H (38-126) U/L Troponin I (0.000-0.034) ng/mL Total Protein 7.1 (6.3-8.2) g/dL Albumin 4.2 (3.5-5.0) g/dL Urine Color Urine Appearance (Clear) Urine pH (5.0-8.0) Ur Specific [place] (1.001-1.035) Urine Protein (Negative) Urine Glucose (UA) (Negative) Urine Ketones (Negative) Urine Blood (Negative) Urine Nitrite (Negative) Urine Bilirubin (Negative) Urine Urobilinogen (<2.0) mg/dL Ur Leukocyte Esterase (Negative) Urine RBC (0-5) /hpf Urine WBC (0-5) /hpf Calcium Oxalate Crystal (None) /hpf Urine Mucus (None) /hpf 12/05/23 12/05/23 Range/Units 20:57 20:57 WBC (3.8-10.6) k/uL RBC (4.30-5.90) m/uL Hgb (13.0-17.5) gm/dL Hct (39.0-53.0) % MCV (80.0-100.0) fL MCH (25.0-35.0) pg MCHC (31.0-37.0) g/dL RDW (11.5-15.5) % Plt Count (150-450) k/uL MPV Neutrophils % % Lymphocytes % % Monocytes % % Eosinophils % % Basophils % % Neutrophils # (1.3-7.7) k/uL Lymphocytes # (1.0-4.8) k/uL Monocytes # (0-1.0) k/uL Eosinophils # (0-0.7) k/uL Basophils # (0-0.2) k/uL PT (10.0-12.5) sec INR (<1.2) APTT (22.0-30.0) sec Sodium (137-145) mmol/L Potassium (3.5-5.1) mmol/L Chloride (98-107) mmol/L Carbon Dioxide (22-30) mmol/L Anion Gap mmol/L BUN (9-20) mg/dL Creatinine (0.66-1.25) mg/dL Est GFR (CKD-EPI)AfAm (>60 ml/min/1.73 sqM) Est GFR (CKD-EPI)NonAf (>60 ml/min/1.73 sqM) Glucose (74-99) mg/dL Calcium (8.4-10.2) mg/dL Magnesium (1.6-2.3) mg/dL Total Bilirubin (0.2-1.3) mg/dL AST (17-59) U/L ALT (4-49) U/L Alkaline Phosphatase (38-126) U/L Troponin I <0.012 (0.000-0.034) ng/mL Total Protein (6.3-8.2) g/dL Albumin (3.5-5.0) g/dL Urine Color Light Yellow Urine Appearance Cloudy (Clear) Urine pH 5.5 (5.0-8.0) Ur Specific [place] 1.021 (1.001-1.035) Urine Protein 2+ H (Negative) Urine Glucose (UA) Negative (Negative) Urine Ketones Negative (Negative) Urine Blood Trace H (Negative) Urine Nitrite Negative (Negative) Urine Bilirubin Negative (Negative) Urine Urobilinogen <2.0 (<2.0) mg/dL Ur Leukocyte Esterase Negative (Negative) Urine RBC 2 (0-5) /hpf Urine WBC <1 (0-5) /hpf Calcium Oxalate Crystal Moderate H (None) /hpf Urine Mucus Few H (None) /hpf Disposition Clinical Impression: Low back pain Disposition: HOME SELF-CARE Condition: Good Instructions (If sedation given, give patient instructions): Back Pain (ED) Additional Instructions: Follow-up with PCP. Report back to ER with any new or worsening symptoms. Is patient prescribed a controlled substance at d/c from ED?: No Referrals: Abdon Montes De Oca DO [Primary Care Provider] - 1-2 days Time of Disposition: 23:38
[2023-12-05 21:07] LABS: Basophils # (A) 0.1 k/uL (0-0.2); Basophils % (A) 1 %; Eosinophils # (A) 0.4 k/uL (0-0.7); Eosinophils % (A) 3 %; HGB 14.7 gm/dL (13.0-17.5); Lymphocytes # (A) 2.7 k/uL (1.0-4.8); Lymphocytes % (A) 21 %; MCH 27.4 pg (25.0-35.0); MCHC 32.6 g/dL (31.0-37.0); Mean Platelet Volume 8.1; Monocytes # (A) 0.8 k/uL (0-1.0); Monocytes % (A) 6 %; Neutrophils # (A) 8.8 k/uL (1.3-7.7); Neutrophils % (A) 68 %; Platelet Count 297 k/uL (150-450); RBC 5.35 m/uL (4.30-5.90); RDW 13.7 % (11.5-15.5); WBC 12.9 k/uL (3.8-10.6)
[2023-12-05 21:16] LABS: Appearance,Urine Cloudy (Clear); Bilirubin,Urine Negative (Negative); Blood,Urine Trace (Negative); Calcium Oxalate Crystals,Urine Moderate /hpf; Color,Urine Light Yellow; Glucose,Urine (UA) Negative (Negative); INR 0.9 (<1.2); Ketones,Urine Negative (Negative); Leukocyte Esterase,Urine Negative (Negative); Mucus,Urine Few /hpf; Nitrite,Urine Negative (Negative); PH, Urine 5.5 (5.0-8.0); Partial Thromboplastin Time 23.3 sec (22.0-30.0); Protein,Urine 2+ (Negative); Prothrombin Time 10.3 sec (10.0-12.5); RBC,Urine 2 /hpf (0-5); Specific Gravity,Urine 1.021 (1.001-1.035); Urobilinogen,Urine <2.0 mg/dL (<2.0); WBC,Urine <1 /hpf (0-5)
[2023-12-05 21:17] LABS: ALT 26 U/L (4-49); AST 24 U/L (17-59); African American GFR (CKD) >90 (>60 ml/min/1.73 sqM); Albumin 4.2 g/dL (3.5-5.0); Alkaline Phosphatase 140 U/L (38-126); Anion Gap 11 mmol/L; Blood Urea Nitrogen 17 mg/dL (9-20); Calcium 9.4 mg/dL (8.4-10.2); Carbon Dioxide 20 mmol/L (22-30); Chloride 110 mmol/L (98-107); Glucose 103 mg/dL (74-99); Non-African American GFR(CKD) >90 (>60 ml/min/1.73 sqM); Potassium 3.9 mmol/L (3.5-5.1); Sodium 141 mmol/L (137-145); Total Bilirubin 0.4 mg/dL (0.2-1.3); Total Protein 7.1 g/dL (6.3-8.2)
--- NOTE | 2023-12-05 21:45 | XR ---
EXAMINATION TYPE: XR lumbar spine 2 or 3V DATE OF EXAM: 12/05/2023 8:18 PM CLINICAL INDICATION:Male, 43 years old with history of low back pain; COMPARISON: None TECHNIQUE: XR lumbar spine 2 or 3V - Frontal, lateral and coned in L5-S1 lateral views of the spine. FINDINGS: No evidence of any acute osseous pathology. No evidence of loss of vertebral body height i s seen. There is normal alignment of the lumbar vertebral bodies. Mild scattered disc space narrowing . Multilevel marginal osteophyte formation throughout the visualized spine. There is facet joint arth ropathy throughout the spine. Scattered at least mild neural foraminal stenosis. IMPRESSION: 1. No acute fracture. 2. Mild multilevel disc degeneration.
--- NOTE | 2023-12-05 22:58 | CT ---
EXAM: CT Abdomen and Pelvis Without Intravenous Contrast CLINICAL HISTORY: ITS.REASON CT Reason: L flank pain TECHNIQUE: Axial computed tomography images of the abdomen and pelvis without intravenous contrast. CTDI is 23 mGy and DLP is 1715.1 mGy-cm. This CT exam was performed using one or more of the following dose reduction techniques: automated exposure control, adjustment of the mA and/or kV according to patient size, and/or use of iterative reconstruction technique. COMPARISON: CT abdomen and pelvis dated September 23, 2018. FINDINGS: Lung bases: Unremarkable. No mass. No consolidation. ABDOMEN: Liver: Hepatic steatosis. Gallbladder and bile ducts: Contracted gallbladder. No calcified stones. No ductal dilation. Pancreas: Unremarkable. No ductal dilation. Spleen: Unremarkable. No splenomegaly. Adrenals: Unremarkable. No mass. Kidneys and ureters: Atrophy of the RIGHT kidney. No hydronephrosis. No renal stones. Stomach and bowel: Unremarkable. No obstruction. No mucosal thickening. PELVIS: Appendix: No findings to suggest acute appendicitis. Bladder: Unremarkable. No stones. Reproductive: Unremarkable as visualized. ABDOMEN and PELVIS: Intraperitoneal space: Fluid in the RIGHT inguinal canal. No free air. Bones/joints: No acute fracture. No dislocation. Soft tissues: Unremarkable. Vasculature: Unremarkable. No abdominal aortic aneurysm. Lymph nodes: Unremarkable. No enlarged lymph nodes. IMPRESSION: 1. Fluid in the RIGHT inguinal canal. 2. Hepatic steatosis. 3. Atrophy of the RIGHT kidney.
[2023-12-06 00:21] VITALS: BP 154/92; PULSE 88; RESP 20; TEMP 98.6
== END 2023-12-05 23:53 | disposition home or self-care (01) ==
LOC: EC 19:22
DX: M54.50 Low back pain, unspecified (principal); M51.36 Other intervertebral disc degeneration, lumbar region; Z87.891 Personal history of nicotine dependence; Z88.8 Allergy status to other drugs, medicaments and biological substances
CPT/HCPCS: 36415; 72100; 74176; 80053; 81001; 83735; 84484; 85025; 85610; 85730; 93005; 99284

== ENCOUNTER 2024-08-02 16:14 | Emergency (ER) | payer OTHER ==
[2024-08-02 16:38] VITALS: TEMP 98.7
--- NOTE | 2024-08-02 17:07 | ED ---
Psych HPI - General Source: patient, family, RN notes reviewed Mode of arrival: ambulatory <Bolivar Dang - Last Filed: 08/02/24 17:04> - General Source: patient, family, RN notes reviewed, old records reviewed Limitations: no limitations - History of Present Illness MD Complaint: altered mental status, other (Confusion) Associated Psychiatric Symptoms: auditory hallucinations, visual hallucinations, delusions Quality: intermittent Improves With: none Worsens With: none Associated Symptoms: denies other symptoms Treatments Prior to Arrival: placed on mental health hold <Jovan Iyer - Last Filed: 08/02/24 21:41> - General Chief Complaint: Psychiatric Symptoms Stated Complaint: anxiety and depression Time Seen by Provider: 08/02/24 16:29 - History of Present Illness Initial Comments: Quick note: This is a 44-year-old male with history of MDD and anxiety presenting with sister for increased anxiety and auditory hallucinations starting last night. Patient was admitted to [facility] last week for similar symptoms, started on Rexulti with development of hallucinations afterwards. Patient notes he has also been anxious and angry/aggressive towards his . Endorses increase in bupropion dose from 150 mg to 300 mg 1 month ago. Otherwise denies SI/HI. (Bolivar Dang) This is a 44 male to ER with increased anxiety and hallucinations secondary to new medication. Patient is here for psychiatric and [facility] evaluation (Jovan Iyer) - Related Data Home Medications Medication Instructions Recorded Confirmed Nitroglycerin Sl Tabs [Nitrostat] 0.4 mg SL Q5M PRN 11/10/22 11/10/22 Previous Rx's Medication Instructions Recorded Aspirin 81 mg PO DAILY #30 tab 10/27/22 Atorvastatin [Lipitor] 80 mg PO HS #30 tab 10/27/22 Metoprolol Tartrate [Lopressor] 25 mg PO BID #60 tab 10/27/22 Prasugrel [Effient] 10 mg PO DAILY #30 tab 10/27/22 lisinopriL [Zestril] 10 mg PO DAILY #30 tab 11/11/22 predniSONE 50 mg PO DAILY #5 tab 12/21/22 Allergies Allergy/AdvReac Type Severity Reaction Status Date / Time CONOR Inhibitors Allergy Rash/Hives Verified 08/02/24 16:38 Review of Systems ROS Other: All systems not noted in ROS Statement are negative. <Bolivar Dang - Last Filed: 08/02/24 17:04> ROS Other: All systems not noted in ROS Statement are negative. <Jovan Iyer - Last Filed: 08/02/24 21:41> ROS Statement: Those systems with pertinent positive or pertinent negative responses have been documented in the HPI. Past Medical History Past Medical History: Hyperlipidemia, Hypertension Additional Past Medical History / Comment(s): hydrocephalis, depression, anxiety History of Any Multi-Drug Resistant Organisms: None Reported Past Surgical History: Heart Catheterization With Stent Additional Past Surgical History / Comment(s): abalone fisherman shunt, vasectomy November 2018 Past Anesthesia/Blood Transfusion Reactions: No Reported Reaction Date of Last Stent Placement:: 10/27 Past Psychological History: Anxiety, Depression Smoking Status: Former smoker Past Alcohol Use History: None Reported Past Drug Use History: None Reported - Past Family History Father Family Medical History: Cancer, Chest Pain / Angina, Coronary Artery Disease (CAD), Hyperlipidemia, Hypertension Additional Family Medical History / Comment(s): from colon cancer Mother Family Medical History: Coronary Artery Disease (CAD), Diabetes Mellitus, Hyperlipidemia, Hypertension <Bolivar Dang - Last Filed: 08/02/24 17:04> General Exam Limitations: no limitations <Bolivar Dang Filed: 08/02/24 17:04> General appearance: alert, in no apparent distress Head exam: Present: atraumatic, normocephalic, normal inspection Eye exam: Present: normal appearance, PERRL, EOMI. Absent: scleral icterus, conjunctival injection, periorbital swelling ENT exam: Present: normal exam, mucous membranes moist Neck exam: Present: normal inspection. Absent: tenderness, meningismus, lymphadenopathy Respiratory exam: Present: normal lung sounds bilaterally. Absent: respiratory distress, wheezes, rales, rhonchi, stridor Cardiovascular Exam: Present: regular rate, normal rhythm, normal heart sounds. Absent: systolic murmur, diastolic murmur, rubs, gallop, clicks GI/Abdominal exam: Present: soft, normal bowel sounds. Absent: distended, tenderness, guarding, rebound, rigid Extremities exam: Present: normal inspection, full ROM, normal capillary refill. Absent: tenderness, pedal edema, joint swelling, calf tenderness Back exam: Present: normal inspection Neurological exam: Present: alert, oriented X3, CN II-XII intact Psychiatric exam: Present: normal affect, normal mood Skin exam: Present: warm, dry, intact, normal color. Absent: rash <Jovan Iyer - Last Filed: 08/02/24 21:41> - General Exam Comments Initial Comments: Visual Physical Exam Vital signs reviewed General: Well-appearing, nontoxic, no acute distress. Head: Normocephalic, atraumatic Eyes: PERRLA, EOMI ENT: Airway patent Chest: Nonlabored breathing Skin: No visual rash, normal skin tone Neuro: Alert and oriented 3 Musculoskeletal: No gross abnormalities (Bolivar Dang) Course <Jovan Iyer - Last Filed: 08/02/24 21:41> Vital Signs 08/02/24 16:34 Temperature 98.7 F Pulse Rate 95 Respiratory 18 Rate Blood Pressure 143/86 O2 Sat by Pulse 96 Oximetry - Reevaluation(s) Reevaluation #1: 08/02/24 21:39 Medical records reviewed (Jovan Iyer) Reevaluation #2: 08/02/24 21:39 Medically cleared for psychiatric evaluation (Jovan Iyer) Reevaluation #3: Was pt. sent in by a medical professional or institution (TEJA Morin, APPLICATION SUPPORT DEVELOPER, urgent care, hospital, or custodial...) When possible be specific @ -no Did you speak to anyone other than the patient for history (EMS, parent, family, police, friend...)? What history was obtained from this source @ -no Did you review nursing and triage notes (agree or disagree)? Why? @ -agree Are old charts reviewed (outside hosp., previous admission, EMS record, old EKG, old radiological studies, urgent care reports/EKG's, custodial records)? Report findings @ -yes Differential Diagnosis (chest pain, altered mental status, abdominal pain women, abdominal pain men, vaginal bleeding, weakness, fever, dyspnea, syncope, headache, dizziness, GI bleed, back pain, seizure, CVA, palpatations, mental health, musculoskeletal)? @ -prior EKG interpreted by me (3pts min.). @ -yes X-rays interpreted by me (1pt min.). @ -yes negative for acute disease CT interpreted by me (1pt min.). @ -no U/S interpreted by me (1pt. min.). @ -no What testing was considered but not performed or refused? (CT, X-rays, U/S, labs)? Why? @ -none What meds were considered but not given or refused? Why? @ -none Did you discuss the management of the patient with other professionals (professionals i.e. DrLaura, PA, APPLICATION SUPPORT DEVELOPER, lab, RT, psych nurse, social research assistant, electronics assembler and tester, teacher, inshore undersea warfare officer, nurse case manager)? Give summary @ -no Was smoking cessation discussed for >3mins.? @ -no Was critical care preformed (if so, how long)? @ -no Were there social determinants of health that impacted care today? How? (Homelessness, low income, unemployed, alcoholism, drug addiction, transportation, low edu. Level, literacy, decrease access to med. care, group home, rehab)? @ -none Was there de-escalation of care discussed even if they declined (Discuss DNR or withdrawal of care, Hospice)? DNR status @ -no What co-morbidities impacted this encounter? (DM, HTN, Smoking, COPD, CAD, Cancer, CVA, ARF, Chemo, Hep., AIDS, mental health diagnosis, sleep apnea, morbid obesity)? @ -none Was patient admitted / discharged? Hospital course, mention meds given and route, prescriptions, significant lab abnormalities, going to OR and other pert inent info. @ - Undiagnosed new problem with uncertain prognosis? @ -no Drug Therapy requiring intensive monitoring for toxicity (Heparin, Nitro, Insulin, Cardizem)? @ -no Were any procedures done? @ -no Diagnosis/symptom? @ - Acute, or Chronic, or Acute on Chronic? @ -Acute Uncomplicated (without systemic symptoms) or Complicated (systemic symptoms)? @ -Complicated Side effects of treatment? @ -no Exacerbation, Progression, or Severe Exacerbation? @ -exacerbation Poses a threat to life or bodily function? How? (Chest pain, USA, CT, pneumonia, PE, COPD, DKA, ARF, appy, cholecystitis, CVA, Diverticulitis, Homicidal, Suicidal, threat to staff... and all critical care pts) @ -yes (Jovan Iyer) Reevaluation #4: Differential Mental Health Depression, anxiety, bipolar, psychosis, schizophrenia, borderline personality, situational depression, adjustment disorder, behavioral disorder, brain tumor, malingering, substance abuse, encephalopathy, medication reaction, dementia, hypothyroidism, degenerative neurologic disorder, lupus.... This is not meant to be all-inclusive list (Jovan Iyer) Medical Decision Making <Bolivar Dang - Last Filed: 08/02/24 17:04> <Jovan Iyer - Last Filed: 08/02/24 21:41> - Medical Decision Making I completed the quick note portion of this chart signed JAZMIN Morales (Bolivar Dang) 44 male likely medication reaction patient seen evaluated by [facility] here in the hospital and can be discharged home (Jovan Iyer) - Lab Data Lab Results 08/02/24 Range/Units 17:53 Urine Opiates Screen Not Detected (NotDetected) Ur Oxycodone Screen Not Detected (NotDetected) Urine Methadone Screen Not Detected (NotDetected) Ur Barbiturates Screen Not Detected (NotDetected) U Tricyclic Antidepress Not Detected (NotDetected) Ur Phencyclidine Scrn Not Detected (NotDetected) Ur Amphetamines Screen Not Detected (NotDetected) U Methamphetamines Scrn Not Detected (NotDetected) U Benzodiazepines Scrn Not Detected (NotDetected) Urine Cocaine Screen Not Detected (NotDetected) U Marijuana (THC) Screen Not Detected (NotDetected) Disposition <Bolivar Dang - Last Filed: 08/02/24 17:04> Is patient prescribed a controlled substance at d/c from ED?: No <Jovan Iyer - Last Filed: 08/02/24 21:41> Clinical Impression: Drug-induced psychotic disorder, Hallucinations Disposition: HOME SELF-CARE Condition: Good Instructions (If sedation given, give patient instructions): Hallucinations (ED), Psychiatric Hallucinations (ED) Referrals: Abdon Montes De Oca, [Primary Care Provider] - 1-2 days
[2024-08-02 18:08] LABS: Amphetamine Screen,Urine Not Detected (NotDetected); Barbiturate Screen,Urine Not Detected (NotDetected); Benzodiazepines Screen,Urine Not Detected (NotDetected); Cocaine Screen,Urine Not Detected (NotDetected); Methadone Screen, Urine Not Detected (NotDetected); Opiate Screen,Urine Not Detected (NotDetected); Oxycodone Screen, Urine Not Detected (NotDetected); Phencyclidine Screen,Urine Not Detected (NotDetected); Tricyclic Antidepressant,Urine Not Detected (NotDetected); Urn Cannabinoid Scrn Not Detected (NotDetected)
[2024-08-02 21:44] VITALS: BP 148/90; PULSE 88; RESP 16
== END 2024-08-02 21:44 | disposition home or self-care (01) ==
LOC: EC 16:14
DX: R44.3 Hallucinations, unspecified (principal); F19.159 Other psychoactive substance abuse with psychoactive substance-induced psychotic disorder, unspecified; Z87.891 Personal history of nicotine dependence; Z88.8 Allergy status to other drugs, medicaments and biological substances
CPT/HCPCS: 80306; 82075; 99285